=== PATIENT | male | born 1955 ===

== ENCOUNTER 2019-02-02 00:50 | Emergency (ER) | payer OTHER ==
[~2019-02-02] VITALS: Ht 167.6 cm; Wt 77.1 kg
[~2019-02-02 00:50] MED LIST: ASPI81CH PO; EZET10 PO; INVOKANA300 MG PO; METF500C PO; METO50 PO; Prilosec Otc20 MG PO; Prinivil10 MG PO; ROSU10TA PO
[2019-02-02 01:30] LABS: BASOPHILS ABSOLUTE AUTO 0.04 K/mm3 (0.00-0.23); BASOPHILS PERCENT AUTO 1 % (0-2); EOSINOPHILS ABSOLUTE AUTO 0.15 K/mm3 (0.00-0.68); EOSINOPHILS PERCENT AUTO 3 % (0-6); Hematocrit 44.9 % (37.0-53.0); Hemoglobin 15.2 g/dL (13.5-17.5); IMMATURE GRAN ABSOLUTE AUTO 0.02 K/mm3 (0.00-0.10); IMMATURE GRAN PERCENT AUTO 0 % (0-1); LYMPHOCYTES ABSOLUTE AUTO 2.58 K/mm3 (0.84-5.20); LYMPHOCYTES PERCENT AUTO 43 % (21-46); MONOCYTES ABSOLUTE AUTO 0.64 K/mm3 (0.16-1.47); MONOCYTES PERCENT AUTO 11 % (4-13); Mean Corpuscular HGB Conc 33.9 g/dL (31.5-36.5); Mean Corpuscular Volume 98 fL (80-100); Mean Platelet Volume 9.2 fL (9.1-12.4); NEUTROPHILS ABSOLUTE AUTO 2.52 K/mm3 (1.96-9.15); NEUTROPHILS PERCENT AUTO 42 % (41-73); Platelet Count 194 K/mm3 (150-400); RDW Coefficient Variation 12.1 % (11.7-14.2); RDW Standard Deviation 43.6 fL (35.1-46.3); White Blood Cell Count 5.95 K/mm3 (4.00-11.30)
[2019-02-02 01:44] LABS: Alanine Aminotransfer (ALT/SGP 52 U/L (12-78); Albumin, Blood 3.8 g/dL (3.4-5.0); Albumin/Globulin Ratio 1.1 (0.8-1.8); Alk Phos 65 U/L (50-136); Anion Gap 15 mmol/L (6-16); Aspartate Aminotrans (AST/SGOT 36 U/L (12-37); Bilirubin, Total 0.3 mg/dL (0.1-1.0); Blood Urea Nitrogen 16 mg/dL (8-24); Bun/Creatinine Ratio 19.6 (12.0-20.0); CO2, Blood 19 mmol/L (21-32); Calcium, Blood 9.2 mg/dL (8.5-10.1); Chloride, Blood 105 mmol/L (98-108); Creatinine, Blood 0.82 mg/dL (0.60-1.20); Globulin, Blood 3.4 g/dL (2.2-4.0); Glomerular Filtration Rate >60 (60-); Glucose, Blood 155 mg/dL (70-99); Potassium, Blood 4.3 mmol/L (3.5-5.5); Sodium, Blood 139 mmol/L (136-145); Total Protein, Blood 7.2 g/dL (6.4-8.2); Troponin I <0.015 ng/mL (0.000-0.040)
== END 2019-02-02 05:06 | disposition home or self-care (01) ==
LOC: ER 00:50
PROVIDERS: Emergency Medicine
DX: R07.89 Other chest pain (principal); Z87.891 Personal history of nicotine dependence; Z79.899 Other long term (current) drug therapy; Z79.82 Long term (current) use of aspirin; Z79.84 Long term (current) use of oral hypoglycemic drugs
CPT/HCPCS: 36415; 71046; 80053; 83690; 84484; 85025; 93005; 93010; 99285-25

== ENCOUNTER 2019-10-02 09:45 | Inpatient (IN) | payer OTHER ==
[~2019-10-02] VITALS: Ht 167.6 cm; Wt 73.3 kg
[~2019-10-02 09:45] MED LIST changes: -ASPI81CH PO; -EZET10 PO; +JARDIANCE25 MG PO; -METF500C PO; -METO50 PO; -Prilosec Otc20 MG PO; -Prinivil10 MG PO; -ROSU10TA PO; +XARELTO15 MG PO
[2019-10-02 10:41] LABS: BASOPHILS ABSOLUTE AUTO 0.08 K/mm3 (0.00-0.23); BASOPHILS PERCENT AUTO 1 % (0-2); EOSINOPHILS ABSOLUTE AUTO 0.02 K/mm3 (0.00-0.68); EOSINOPHILS PERCENT AUTO 0 % (0-6); Hematocrit 54.8 % (37.0-53.0); Hemoglobin 17.1 g/dL (13.5-17.5); IMMATURE GRAN ABSOLUTE AUTO 0.07 K/mm3 (0.00-0.10); IMMATURE GRAN PERCENT AUTO 1 % (0-1); LYMPHOCYTES ABSOLUTE AUTO 2.06 K/mm3 (0.84-5.20); LYMPHOCYTES PERCENT AUTO 18 % (21-46); MONOCYTES ABSOLUTE AUTO 0.84 K/mm3 (0.16-1.47); MONOCYTES PERCENT AUTO 7 % (4-13); Mean Corpuscular HGB 32.4 pg (26.0-34.0); Mean Corpuscular HGB Conc 31.2 g/dL (31.5-36.5); Mean Corpuscular Volume 104 fL (80-100); Mean Platelet Volume 9.3 fL (9.1-12.4); NEUTROPHILS ABSOLUTE AUTO 8.62 K/mm3 (1.96-9.15); NEUTROPHILS PERCENT AUTO 74 % (41-73); Platelet Count 221 K/mm3 (150-400); RDW Coefficient Variation 11.5 % (11.7-14.2); RDW Standard Deviation 44.5 fL (35.1-46.3); Red Blood Cell Count 5.28 M/mm3 (4.30-5.90); White Blood Cell Count 11.69 K/mm3 (4.00-11.30)
[2019-10-02 11:00] LABS: Alanine Aminotransfer (ALT/SGP 140 U/L (12-78); Albumin, Blood 4.5 g/dL (3.4-5.0); Albumin/Globulin Ratio 1.1 (0.8-1.8); Alk Phos 96 U/L (50-136); Anion Gap 24 mmol/L (6-16); Aspartate Aminotrans (AST/SGOT 130 U/L (12-37); Bilirubin, Total 0.7 mg/dL (0.1-1.0); Blood Urea Nitrogen 17 mg/dL (8-24); CO2, Blood 10 mmol/L (21-32); Calcium, Blood 9.1 mg/dL (8.5-10.1); Chloride, Blood 100 mmol/L (98-108); Globulin, Blood 4.2 g/dL (2.2-4.0); Glomerular Filtration Rate >60 (60-); Glucose, Blood 247 mg/dL (70-99); Potassium, Blood 5.2 mmol/L (3.5-5.5); Sodium, Blood 134 mmol/L (136-145); Total Protein, Blood 8.7 g/dL (6.4-8.2); Troponin I <0.015 ng/mL (0.000-0.040)
[2019-10-02 13:22] LABS: Ethanol (Alcohol), Blood, Med <3 mg/dL; Salicylate 3.5 mg/dL (2.8-20.0)
[2019-10-02 13:29] LABS: Acetaminophen, Random <2.0 ug/mL (10.0-30.0)
[2019-10-02 13:39] LABS: PCO2 Arterial 13 mmHg (35-45); PO2 Arterial 136 mmHg (80-100)
[2019-10-02 14:14] LABS: U Amphetamine Screen Not Detected; U Barbituate Screen Not Detected; U Benzodiazapine Screen Not Detected; U Buprenorphine Screen Not Detected; U Cannabinoids Screen Not Detected; U Cocaine Screen Not Detected; U Methadone Screen Not Detected; U Methamphetamine Screen Not Detected; U Opiates Screen Not Detected; U Oxycodone Screen Not Detected; U Phencyclidine Screen Not Detected; U Propoxyphene Screen Not Detected
[2019-10-02] MEDS ORDERED: Aspir 8181 MG PO (15:07)
[2019-10-02] MEDS ORDERED: EZET10 PO (15:08)
[2019-10-02] MEDS ORDERED: METF500C PO (15:08)
[2019-10-02] MEDS ORDERED: Prinivil10 MG PO (15:08)
[2019-10-02] MEDS ORDERED: METO50 PO (15:09)
[2019-10-02] MEDS ORDERED: ROSU10TA PO (15:09)
[2019-10-02] MEDS ORDERED: Prilosec Otc20 MG PO (15:09)
[2019-10-02] MEDS ORDERED: JARDIANCE25 MG PO (15:10)
[2019-10-02] MEDS ORDERED: SITA100T2 PO (15:10)
[2019-10-02 17:00] LABS: Source, Urine Clean Catch
[2019-10-02 17:15] LABS: Appearance, Urine Clear (Clear); Bilirubin, Urine Neg (Neg); Blood, Urine 1+ (Neg); Color, Urine Yellow (P-Yellow); Glucose Qualitative, Urine 4+ (Neg); Ketones, Urine 4+ (Neg); Leukocyte Esterase, Urine Neg (Neg); Nitrite, Urine Neg (Neg); Protein, Urine 3+ (Neg); Specific Gravity, Urine 1.025 (1.003-1.022); Urobilinogen, Urine NORM (Normal)
[2019-10-02 17:19] LABS: Anion Gap 20 mmol/L (6-16); Blood Urea Nitrogen 15 mg/dL (8-24); Bun/Creatinine Ratio 21.5 (12.0-20.0); CO2, Blood 9 mmol/L (21-32); Calcium, Blood 7.5 mg/dL (8.5-10.1); Chloride, Blood 109 mmol/L (98-108); Glomerular Filtration Rate >60 (60-); Glucose, Blood 154 mg/dL (70-99); Potassium, Blood 5.7 mmol/L (3.5-5.5); Sodium, Blood 138 mmol/L (136-145)
[2019-10-02 17:29] LABS: PO2 Arterial 118 mmHg (80-100)
[2019-10-02 17:30] LABS: PCO2 Arterial 12.3 mmHg (35-45)
[2019-10-02 17:33] LABS: Bacteria Few /hpf; Red Blood Cells, Urine 0-2 /hpf (0-2); Squamous Epithelial Cells Rare /hpf (Few); White Blood Cells, Urine 0-2 /hpf (0-5)
--- NOTE | 2019-10-02 17:55 | NUR ---
echocardiogram completed in the ED
--- NOTE | 2019-10-02 18:51 | NUR ---
ARRIVAL TO ICU PT ARRIVES TO ICU AT 1800 FROM ED. INSULIN GTT INFUSING AT 0.5 UNITS/HR WITH D5 1/2 NS AT 150 ML/HR. BLOOD SUGAR AT 150. PT A/O X 3, CALM AND COOPERATIVE. DENIES SOB AT THIS TIME. NSR, HR 100-110. BP WNL. SPO2 98% ON RA. LUNG SOUNDS CLEAR. MD MOSQUEDA BEDSIDE FOR EVAL AT THIS TIME. WILL GIVE BEDSIDE, HANDOFF REPORT TO SAYRA RN.
[2019-10-02 19:49] LABS: International Normalized Ratio 1.07; Prothrombin Time Results 11.4 Sec (9.7-11.5)
[2019-10-02 20:02] LABS: Anion Gap 21 mmol/L (6-16); Blood Urea Nitrogen 14 mg/dL (8-24); Bun/Creatinine Ratio 20.1 (12.0-20.0); CO2, Blood 8 mmol/L (21-32); Calcium, Blood 7.6 mg/dL (8.5-10.1); Chloride, Blood 110 mmol/L (98-108); Glomerular Filtration Rate >60 (60-); Glucose, Blood 142 mg/dL (70-99); Potassium, Blood 4.7 mmol/L (3.5-5.5); Sodium, Blood 139 mmol/L (136-145)
[2019-10-02 20:25] LABS: Adenovirus Not Detected (NOT DETECT); Bordetella pertussis Not Detected (NOT DETECT); Chlamydophila pneumoniae Not Detected (NOT DETECT); Coronavirus 229E Not Detected (NOT DETECT); Coronavirus HKU1 Not Detected (NOT DETECT); Coronavirus NL63 Not Detected (NOT DETECT); Coronavirus OC43 Not Detected (NOT DETECT); Human Metapneumovirus Not Detected (NOT DETECT); Human Rhinovirus/Enterovirus Not Detected (NOT DETECT); Influenza A/2009-H1 Not Detected (NOT DETECT); Influenza A/H1 Not Detected (NOT DETECT); Influenza A/H3 Not Detected (NOT DETECT); Influenza B Not Detected (NOT DETECT); Mycoplasma pneumoniae Not Detected (NOT DETECT); Parainfluenza Virus 1 Not Detected (NOT DETECT); Parainfluenza Virus 2 Not Detected (NOT DETECT); Parainfluenza Virus 3 Not Detected (NOT DETECT); Parainfluenza Virus 4 Not Detected (NOT DETECT); Respiratory Syncytial Virus Not Detected (NOT DETECT)
[2019-10-02 23:36] LABS: Anion Gap 20 mmol/L (6-16); Blood Urea Nitrogen 13 mg/dL (8-24); Bun/Creatinine Ratio 20.6 (12.0-20.0); CO2, Blood 8 mmol/L (21-32); Calcium, Blood 7.7 mg/dL (8.5-10.1); Chloride, Blood 112 mmol/L (98-108); Creatinine, Blood 0.63 mg/dL (0.60-1.20); Glomerular Filtration Rate >60 (60-); Glucose, Blood 179 mg/dL (70-99); Potassium, Blood 4.2 mmol/L (3.5-5.5); Sodium, Blood 140 mmol/L (136-145)
[2019-10-03 04:01] LABS: BASOPHILS ABSOLUTE AUTO 0.02 K/mm3 (0.00-0.23); BASOPHILS PERCENT AUTO 0 % (0-2); EOSINOPHILS ABSOLUTE AUTO 0.02 K/mm3 (0.00-0.68); EOSINOPHILS PERCENT AUTO 0 % (0-6); Hematocrit 44.7 % (37.0-53.0); Hemoglobin 14.7 g/dL (13.5-17.5); IMMATURE GRAN ABSOLUTE AUTO 0.02 K/mm3 (0.00-0.10); IMMATURE GRAN PERCENT AUTO 0 % (0-1); LYMPHOCYTES ABSOLUTE AUTO 1.06 K/mm3 (0.84-5.20); LYMPHOCYTES PERCENT AUTO 11 % (21-46); MONOCYTES ABSOLUTE AUTO 1.02 K/mm3 (0.16-1.47); MONOCYTES PERCENT AUTO 11 % (4-13); Mean Corpuscular HGB 33.1 pg (26.0-34.0); Mean Corpuscular HGB Conc 32.9 g/dL (31.5-36.5); Mean Platelet Volume 9.6 fL (9.1-12.4); NEUTROPHILS ABSOLUTE AUTO 7.21 K/mm3 (1.96-9.15); NEUTROPHILS PERCENT AUTO 77 % (41-73); Platelet Count 166 K/mm3 (150-400); RDW Coefficient Variation 11.8 % (11.7-14.2); RDW Standard Deviation 44.2 fL (35.1-46.3); Red Blood Cell Count 4.44 M/mm3 (4.30-5.90); White Blood Cell Count 9.35 K/mm3 (4.00-11.30)
[2019-10-03 04:06] LABS: Mean Corpuscular Volume 101 fL (80-100)
[2019-10-03 04:34] LABS: Very Low Density Lipoprot Chol 39 mg/dL (6-32)
[2019-10-03 04:36] LABS: Alanine Aminotransfer (ALT/SGP 98 U/L (12-78); Albumin, Blood 3.4 g/dL (3.4-5.0); Alk Phos 72 U/L (50-136); Anion Gap 17 mmol/L (6-16); Aspartate Aminotrans (AST/SGOT 76 U/L (12-37); Bilirubin, Total 0.7 mg/dL (0.1-1.0); Blood Urea Nitrogen 12 mg/dL (8-24); CHOL/HDL RATIO 2.5; CO2, Blood 10 mmol/L (21-32); Calcium, Blood 7.8 mg/dL (8.5-10.1); Chloride, Blood 111 mmol/L (98-108); Cholesterol 80 mg/dL (50-200); Creatinine, Blood 0.63 mg/dL (0.60-1.20); Glomerular Filtration Rate >60 (60-); Glucose, Blood 166 mg/dL (70-99); HDL Cholesterol 32 mg/dL (>39); LDL/HDL RATIO 0.3; Low Density Lipoprotein Chol 9 mg/dL (0-110); Sodium, Blood 138 mmol/L (136-145); Triglycerides 197 mg/dL (30-160); Troponin I 0.201 ng/mL (0.000-0.040)
[2019-10-03 04:40] LABS: Globulin, Blood 3.3 g/dL (2.2-4.0); Total Protein, Blood 6.7 g/dL (6.4-8.2)
--- NOTE | 2019-10-03 05:48 | NUR ---
ASSUMED CARE AT 1900. BEDSIDE REPORT DONE, PT PARTICIPATING. NO FAMILY AT BEDSIDE. ITRACE PERFORMED. HEPARIN GTT STARTED. PT'S RIGHT AC USED, FREQUENT ALARMS. PT REFUSED A NEW IV, AGREED TO ARMBOARD. PT HAD EPISODE OF EMESIS, NO FURTHER NAUSEA. HOWEVER, PT THEN C/O ABDOMINAL CRAMPING, BUT FELL ASLEEP AFTER TYLENOL GIVEN. PT HAS SLEPT MOST OF EVENING, IN BETWEEN HOURLY GLUCOSE CHECKS. PT HAD NO C/O CHEST PAIN ALL EVENING.
--- NOTE | 2019-10-03 07:18 | NUR ---
ASSUMED CARE: PT RESTING IN BED. HEPARIN GTT RUNNING PER ORDERS, CONFIRMED WITH ALEXANDER KWAN. INSULIN GTT AT 2.5 UNITS/HR AT THIS TIME. DR TORRES CAME TO BEDSIDE TO SEE PT. INSTRUCTS NPO FOR PROCEDURE. NPO SIGN OUTSIDE OF DOOR. DENIES NEEDS OR CONCERNS AT THIS TIME.
--- NOTE | 2019-10-03 08:27 | NUR ---
CLINICAL COORDINATOR FIXED PT'S IVS AND SUGGESTED NEW IV SITES. PT STATES HE WAS A HARD STICK AND REQUESTED TO HAVE IVS LEFT ALONE. DISCUSSED WITH PARTY SUPPLY SPECIALIST THAT PT MAY BENEFIT FROM POWER GLIDE. OVERLAY OPERATOR STUDENTS AT BEDSIDE AT THIS TIME.
--- NOTE | 2019-10-03 09:06 | NUR ---
[facility] STAFF HERE TO COLLECT PT FOR PROCEDURE. NURSE AWARE THAT IVS ARE FUNCTIONING BUT TEMPERMENTAL
--- NOTE | 2019-10-03 09:33 | NUR ---
HOUSECALLS NURSE RN NOTICED THAT RIGHT ARM WAS SWOLLEN WITH REDNESS AT INSERTION SITE. ARM MORE TIGHT AND SWOLLEN THAN IT HAD BEEN. IV DC'D. LEFT AC LEAKING, NEW DRESSING PLACED. HOUSECALLS NURSE RN PULLED BACK AND FOUND COULD STILL DRAW BLOOD. ALL FLUIDS DISCONNECTED AT THIS TIME BECAUSE HOUSECALLS NURSE WAS CONCERNED ABOUT CBG DROPPING TOO MUCH DURING PROCEDURE.
[2019-10-03 09:49] LABS: Anion Gap 15 mmol/L (6-16); Blood Urea Nitrogen 12 mg/dL (8-24); Bun/Creatinine Ratio 21.5 (12.0-20.0); CO2, Blood 13 mmol/L (21-32); Calcium, Blood 8.1 mg/dL (8.5-10.1); Chloride, Blood 95 mmol/L (98-108); Creatinine, Blood 0.56 mg/dL (0.60-1.20); Glomerular Filtration Rate >60 (60-); Glucose, Blood 127 mg/dL (70-99); Potassium, Blood 3.2 mmol/L (3.5-5.5)
[2019-10-03 09:50] LABS: Sodium, Blood 123 mmol/L (136-145)
--- NOTE | 2019-10-03 10:37 | NUR ---
CALL TO DR NASH ABOUT PT'S LAB RESULTS. AWARE THAT PT IS OFF IVF AND INSULIN AT THIS TIME DUE TO PROCEDURE. ORDERS TO START NEW IVF AND RESTART INSULIN WHEN PT RETURNS. CHECKED WITH PHARMACY IF FLUIDS CAN BE GIVEN THROUGH PERIPHERAL AND CHACHA, PHARMACIST STATES YES LONG IV IS IN LARGER VEIN.
--- NOTE | 2019-10-03 10:50 | NUR ---
PT RETURNED FROM CAR [facility]ASER. LEFT WRIST WITH TR BAND IN PLACE. NO SIGNS OF SWELLING OR HEMATOMA AT THIS TIME. NEW IV TO RIGHT FORE ARM WITH D5 NS WITH KCL AND INSULIN RUNNING WELL NS PER DR TOVAR. COBRA TRANSFER BEING WORKED ON. CALL TO DR FOLEY TO DETERMINE DIET AND HEPARIN ORDERS. AWAITING CALL BACK. DISCUSSED NEED FOR SECOND IV WITH EDITOR
--- NOTE | 2019-10-03 13:15 | NUR ---
DR POPE ORDERED FOR COBRA TRANSFER. TR BAND DEFLATED 2CC WITH NO ISSUE. NO SIGNS OF BLEEDING OR HEMATOMA. INSTRUCTED BY DR POPE TO START HEPARIN 6 HOURS AFTER BAND DEFLATED. PASSED THIS ALONG TO ALEXANDER MONSIVAIS AT [facility] THAT REPORT WAS GIVEN TO. PT'S WAS CALLED AND LEFT MESSAGE FOR UPDATE. [facility] CAME TO TAKE PT TO [facility].
[2019-10-03 13:20] LABS: Anion Gap 13 mmol/L (6-16); Blood Urea Nitrogen 11 mg/dL (8-24); Bun/Creatinine Ratio 18.6 (12.0-20.0); CO2, Blood 13 mmol/L (21-32); Chloride, Blood 113 mmol/L (98-108); Creatinine, Blood 0.59 mg/dL (0.60-1.20); Glomerular Filtration Rate >60 (60-); Glucose, Blood 130 mg/dL (70-99); Potassium, Blood 3.9 mmol/L (3.5-5.5)
[2019-10-03 13:21] LABS: Sodium, Blood 139 mmol/L (136-145)
--- NOTE | 2019-10-03 15:08 | NUR ---
PT'S CALLED AND WAS GIVEN UPDATE.
== END 2019-10-03 13:21 | disposition short-term general hospital (02) | DRG 280 ==
LOC: ER 09:45 → ICUW 17:23 → ICUE 17:23
PROVIDERS: Emergency Medicine; Internal Medicine; Nurse Practitioner Acute Care; Physician Assistant; ADMIT Hospitalist
PROC: B211YZZ Fluoroscopy of Multiple Coronary Arteries using Other Contrast (ICD-10-PCS; principal; 2019-10-03)
DX: I21.4 Non-ST elevation (NSTEMI) myocardial infarction (principal); E11.10 Type 2 diabetes mellitus with ketoacidosis without coma; R65.10 Systemic inflammatory response syndrome (SIRS) of non-infectious origin without acute organ dysfunction; K21.9 Gastro-esophageal reflux disease without esophagitis; R74.0 Nonspecific elevation of levels of transaminase and lactic acid dehydrogenase [LDH]; I10 Essential (primary) hypertension; E78.5 Hyperlipidemia, unspecified; E11.51 Type 2 diabetes mellitus with diabetic peripheral angiopathy without gangrene; I25.10 Atherosclerotic heart disease of native coronary artery without angina pectoris; Z95.5 Presence of coronary angioplasty implant and graft; I25.2 Old myocardial infarction; Z87.891 Personal history of nicotine dependence; Z79.82 Long term (current) use of aspirin; Z79.84 Long term (current) use of oral hypoglycemic drugs
CPT/HCPCS: 0099U; 36415; 36600; 71046; 76937; 80048; 80053; 80061; 81001; 82010; 82803; 82947; 83036; 83605; 83690; 83735; 83880; 83930; 84100; 84484; 85025; 85610; 85730; 93005; 93010; 93306; 93454; 96361; 96365; 96375; 96376; 99152; 99153; 99285-25; A9270; A9270-GY; C1769; C1894; G0480; J1644; J1815; J2250; J2405; J3010; J3475; J3480; J7030; J7040; J7042; J7070; Q9967

== ENCOUNTER 2020-04-04 00:14 | Observation (INO) | payer OTHER ==
[~2020-04-04] VITALS: Ht 167.6 cm; Wt 72.4 kg
[~2020-04-04 00:14] MED LIST changes: +Aspir 8181 MG PO; +EZET10 PO; +METF500C PO; +METO50 PO; +Prilosec Otc20 MG PO; +Prinivil10 MG PO; +ROSU10TA PO; +SITA100T2 PO
[2020-04-04] MEDS ORDERED: BASAGLAR K100 UNIT/1 (00:46)
[2020-04-04] MEDS ORDERED: HUMALOG100 UNIT/1 (00:46)
[2020-04-04] MEDS ORDERED: LANTUS SOL100 UNIT/1 (00:46)
[2020-04-04] MEDS ORDERED: Plavix75 MG PO (00:47)
[2020-04-04] MEDS ORDERED: B-COMPLEX WITH1 EAC3 PO (00:47)
[2020-04-04 00:48] LABS: BASOPHILS ABSOLUTE AUTO 0.03 K/mm3 (0.00-0.23); BASOPHILS PERCENT AUTO 0 % (0-2); EOSINOPHILS ABSOLUTE AUTO 0.09 K/mm3 (0.00-0.68); EOSINOPHILS PERCENT AUTO 1 % (0-6); Hematocrit 44.4 % (37.0-53.0); Hemoglobin 14.5 g/dL (13.5-17.5); IMMATURE GRAN ABSOLUTE AUTO 0.04 K/mm3 (0.00-0.10); IMMATURE GRAN PERCENT AUTO 0 % (0-1); LYMPHOCYTES ABSOLUTE AUTO 1.64 K/mm3 (0.84-5.20); LYMPHOCYTES PERCENT AUTO 13 % (21-46); MONOCYTES ABSOLUTE AUTO 1.28 K/mm3 (0.16-1.47); MONOCYTES PERCENT AUTO 10 % (4-13); Mean Corpuscular HGB 31.7 pg (26.0-34.0); Mean Corpuscular HGB Conc 32.7 g/dL (31.5-36.5); Mean Corpuscular Volume 97 fL (80-100); Mean Platelet Volume 9.1 fL (9.1-12.4); NEUTROPHILS ABSOLUTE AUTO 9.35 K/mm3 (1.96-9.15); NEUTROPHILS PERCENT AUTO 75 % (41-73); Platelet Count 228 K/mm3 (150-400); RDW Coefficient Variation 13.2 % (11.7-14.2); RDW Standard Deviation 47.4 fL (35.1-46.3); Red Blood Cell Count 4.57 M/mm3 (4.30-5.90); White Blood Cell Count 12.43 K/mm3 (4.00-11.30)
[2020-04-04] MEDS ORDERED: GLYXAMBI 25 MG1 EACH PO (00:48)
[2020-04-04 01:07] LABS: Alanine Aminotransfer (ALT/SGP 11 U/L (12-78); Albumin, Blood 3.4 g/dL (3.4-5.0); Albumin/Globulin Ratio 0.8 (0.8-1.8); Alk Phos 67 U/L (50-136); Anion Gap 8 mmol/L (6-16); Aspartate Aminotrans (AST/SGOT 12 U/L (12-37); Bilirubin, Total 0.7 mg/dL (0.1-1.0); Blood Urea Nitrogen 17 mg/dL (8-24); Bun/Creatinine Ratio 26.1 (12.0-20.0); CO2, Blood 25 mmol/L (21-32); Chloride, Blood 105 mmol/L (98-108); Creatinine, Blood 0.65 mg/dL (0.60-1.20); Glomerular Filtration Rate >60 (60-); Glucose, Blood 127 mg/dL (70-99); Sodium, Blood 138 mmol/L (136-145); Total Protein, Blood 7.4 g/dL (6.4-8.2); Troponin I <0.015 ng/mL (0.000-0.040)
[2020-04-04 05:10] LABS: BASOPHILS ABSOLUTE AUTO 0.03 K/mm3 (0.00-0.23); BASOPHILS PERCENT AUTO 0 % (0-2); EOSINOPHILS ABSOLUTE AUTO 0.04 K/mm3 (0.00-0.68); EOSINOPHILS PERCENT AUTO 0 % (0-6); Hematocrit 42.1 % (37.0-53.0); Hemoglobin 13.7 g/dL (13.5-17.5); IMMATURE GRAN ABSOLUTE AUTO 0.03 K/mm3 (0.00-0.10); IMMATURE GRAN PERCENT AUTO 0 % (0-1); LYMPHOCYTES ABSOLUTE AUTO 1.76 K/mm3 (0.84-5.20); LYMPHOCYTES PERCENT AUTO 15 % (21-46); MONOCYTES ABSOLUTE AUTO 1.51 K/mm3 (0.16-1.47); MONOCYTES PERCENT AUTO 13 % (4-13); Mean Corpuscular HGB 31.4 pg (26.0-34.0); Mean Corpuscular HGB Conc 32.5 g/dL (31.5-36.5); Mean Corpuscular Volume 97 fL (80-100); NEUTROPHILS ABSOLUTE AUTO 8.55 K/mm3 (1.96-9.15); NEUTROPHILS PERCENT AUTO 72 % (41-73); Platelet Count 220 K/mm3 (150-400); RDW Coefficient Variation 13.1 % (11.7-14.2); RDW Standard Deviation 46.8 fL (35.1-46.3); Red Blood Cell Count 4.36 M/mm3 (4.30-5.90); White Blood Cell Count 11.92 K/mm3 (4.00-11.30)
[2020-04-04 05:32] LABS: Alanine Aminotransfer (ALT/SGP 14 U/L (12-78); Albumin, Blood 3.2 g/dL (3.4-5.0); Albumin/Globulin Ratio 0.9 (0.8-1.8); Alk Phos 59 U/L (50-136); Anion Gap 5 mmol/L (6-16); Aspartate Aminotrans (AST/SGOT 9 U/L (12-37); Bilirubin, Total 0.8 mg/dL (0.1-1.0); Blood Urea Nitrogen 18 mg/dL (8-24); Bun/Creatinine Ratio 25.1 (12.0-20.0); CO2, Blood 27 mmol/L (21-32); Chloride, Blood 106 mmol/L (98-108); Creatinine, Blood 0.72 mg/dL (0.60-1.20); Globulin, Blood 3.6 g/dL (2.2-4.0); Glomerular Filtration Rate >60 (60-); Glucose, Blood 83 mg/dL (70-99); Potassium, Blood 4.1 mmol/L (3.5-5.5); Sodium, Blood 138 mmol/L (136-145); Total Protein, Blood 6.8 g/dL (6.4-8.2)
--- NOTE | 2020-04-04 07:33 | NUR ---
SHIFT SUMMARY PATIENT ALERT AND ORIENTED. ABLE TO BE SAFE INDEPENDENTLY AMBULATING AROUND HIS ROOM. IV INFUSING WITH NORMAL SALINE AT 75 ML/HR. BED IN LOWEST POSITION WITH WHEELS LOCKED. CALL LIGHT WITHIN REACH. REPPORT GIVEN TO ONCOMING RN.
[2020-04-04 09:06] LABS: CPK Creatine Kinase 29 U/L (39-308)
[2020-04-04] MEDS ORDERED: ACET325 PO (10:13)
[2020-04-04] MEDS ORDERED: PANT40 PO (10:13)
--- NOTE | 2020-04-04 11:07 | NUR ---
DISCHARGE NOTE- PT DISCHARGED HOME TODAY. IV AND TELE DC'D PRIOR TO DISCHARGE. PT HAS HAD NO C/O CP T/O THE SHIFT, ALL TROPONINS NEGATIVE. PT REFUSED THE WC AND WALKED OUT ESCORTED BY RN. NO SIGN OF WEAKNESS OR ACTIVITY INTOLLERANCE ON THE WALK TO THE FRONT DOOR.
== END 2020-04-04 10:41 | disposition home or self-care (01) ==
LOC: ER 00:14 → MEDS 00:15 → ENPENDDIS 09:40 → MEDS 10:41
PROVIDERS: Emergency Medicine; ADMIT Internal Medicine
DX: R07.89 Other chest pain (principal); I25.10 Atherosclerotic heart disease of native coronary artery without angina pectoris; I10 Essential (primary) hypertension; K21.9 Gastro-esophageal reflux disease without esophagitis; E11.51 Type 2 diabetes mellitus with diabetic peripheral angiopathy without gangrene; J44.9 Chronic obstructive pulmonary disease, unspecified; Z95.1 Presence of aortocoronary bypass graft; Z79.4 Long term (current) use of insulin; Z79.82 Long term (current) use of aspirin; Z79.02 Long term (current) use of antithrombotics/antiplatelets; Z79.899 Other long term (current) drug therapy; Z87.891 Personal history of nicotine dependence
CPT/HCPCS: 36415; 71046; 80053; 82550; 82947; 83880; 84484; 85025; 85379; 93005; 93010; 96374; 96375; 99285-25; A9270; A9270-GY; G0378; J2405; J3010; J7030

== ENCOUNTER 2020-08-04 10:24 | Day surgery (SDC) | payer OTHER ==
[~2020-08-04] VITALS: Ht 172.7 cm; Wt 75.5 kg
[~2020-08-04 10:24] MED LIST changes: +ACET325 PO; +B-COMPLEX WITH1 EAC3 PO; +BASAGLAR K100 UNIT/1; +GLYXAMBI 25 MG1 EACH PO; +HUMALOG100 UNIT/1; +LANTUS SOL100 UNIT/1; +METF500 PO; +PANT40 PO; +Plavix75 MG PO
[2020-08-04] MEDS ORDERED: CALCIUM 1,0001 EACH PO (11:09)
[2020-08-04] MEDS ORDERED: POTASSIUM GLUC500 M1 PO (11:10)
--- NOTE | 2020-08-04 16:00 | NUR ---
BROUGHT BACK TO RECOVERY ROOM PREVIOUSLY ON [facility], PROVIDED WITH MEAL TRAY, HOB AT 90 DEGREES, TOLERATES PO FOOD/FLUIDS WITH NO DIFFICULTIES. LEFT PEDAL ARTERIAL ACCESS SITE APPEARS SOFT NON TENDER WITH NO ACTIVE BLEEDING, OOZING, OR PAIN. PT AOX4. UPDATED. CALL LIGHT IN REACH.
--- NOTE | 2020-08-04 17:21 | NUR ---
PT VERBALIZED UNDERSTANDING OF D/C INSTRUCTIONS. PROVIDED WITH PAPERWORK IN FOLDER. LEFT PEDAL ARTERIAL ACCESS SITE WITH CLEAR TEGADERM INTACT. AFTER AMBULATING TO RESTROOM WITH STEADY GAIT, THERE WERE NO SIGNS OF BLEEDING OR OOZING NOTED. PT DENIES PAIN. ARRIVES TO DRIVE PT HOME, TAKEN OUT TO PRIVATE VEHICLE VIA W/C. NADN. VSS. ENCOURAGED TO FOLLOW UP SCHEDULED WITH PROVIDER. IV REMOVED FROM RFA WITH CATH INTACT. PRESSURE DRESSING APPLIED.
== END 2020-08-04 16:55 | disposition home or self-care (01) ==
LOC: MHTC 10:24
DX: E11.51 Type 2 diabetes mellitus with diabetic peripheral angiopathy without gangrene (principal); I70.213 Atherosclerosis of native arteries of extremities with intermittent claudication, bilateral legs; I25.10 Atherosclerotic heart disease of native coronary artery without angina pectoris; I10 Essential (primary) hypertension; Z79.82 Long term (current) use of aspirin; Z79.02 Long term (current) use of antithrombotics/antiplatelets
CPT/HCPCS: 75716; 76937; 85347; 99152; 99153; C1725; C1757; C1769; C1887; C1894; C2623; C9764; J1644; J2250; J3010; J7030; J7050; Q9967

== ENCOUNTER 2020-09-17 10:32 | Emergency (ER) | payer OTHER ==
[~2020-09-17] VITALS: Ht 167.6 cm; Wt 74.8 kg
[~2020-09-17 10:32] MED LIST changes: +CALCIUM 1,0001 EACH PO; +POTASSIUM GLUC500 M1 PO
[2020-09-17 12:31] LABS: BASOPHILS ABSOLUTE AUTO 0.03 K/mm3 (0.00-0.23); BASOPHILS PERCENT AUTO 1 % (0-2); EOSINOPHILS ABSOLUTE AUTO 0.08 K/mm3 (0.00-0.68); EOSINOPHILS PERCENT AUTO 1 % (0-6); Hematocrit 46.2 % (37.0-53.0); Hemoglobin 15.7 g/dL (13.5-17.5); IMMATURE GRAN ABSOLUTE AUTO 0.02 K/mm3 (0.00-0.10); IMMATURE GRAN PERCENT AUTO 0 % (0-1); LYMPHOCYTES PERCENT AUTO 27 % (21-46); MONOCYTES ABSOLUTE AUTO 0.66 K/mm3 (0.16-1.47); MONOCYTES PERCENT AUTO 10 % (4-13); Mean Corpuscular HGB 32.5 pg (26.0-34.0); Mean Corpuscular Volume 96 fL (80-100); Mean Platelet Volume 9.3 fL (9.1-12.4); NEUTROPHILS ABSOLUTE AUTO 3.92 K/mm3 (1.96-9.15); NEUTROPHILS PERCENT AUTO 61 % (41-73); Platelet Count 230 K/mm3 (150-400); RDW Coefficient Variation 12.6 % (11.7-14.2); RDW Standard Deviation 44.8 fL (35.1-46.3); Red Blood Cell Count 4.83 M/mm3 (4.30-5.90); White Blood Cell Count 6.41 K/mm3 (4.00-11.30)
[2020-09-17 12:49] LABS: Alanine Aminotransfer (ALT/SGP 30 U/L (12-78); Albumin, Blood 3.7 g/dL (3.4-5.0); Albumin/Globulin Ratio 0.9 (0.8-1.8); Alk Phos 73 U/L (50-136); Anion Gap 10 mmol/L (6-16); Aspartate Aminotrans (AST/SGOT 18 U/L (12-37); Bilirubin, Total 0.6 mg/dL (0.1-1.0); Blood Urea Nitrogen 14 mg/dL (8-24); Bun/Creatinine Ratio 22.7 (12.0-20.0); CO2, Blood 23 mmol/L (21-32); Calcium, Blood 9.5 mg/dL (8.5-10.1); Chloride, Blood 105 mmol/L (98-108); Creatinine, Blood 0.62 mg/dL (0.60-1.20); Globulin, Blood 3.9 g/dL (2.2-4.0); Glomerular Filtration Rate >60 (60-); Glucose, Blood 284 mg/dL (70-99); Potassium, Blood 4.3 mmol/L (3.5-5.5); Sodium, Blood 138 mmol/L (136-145); Total Protein, Blood 7.6 g/dL (6.4-8.2); Troponin I <0.015 ng/mL (0.000-0.040)
== END 2020-09-17 14:42 | disposition home or self-care (01) ==
LOC: ER 10:32
PROVIDERS: Emergency Medicine
DX: R00.0 Tachycardia, unspecified (principal); J44.9 Chronic obstructive pulmonary disease, unspecified; I25.2 Old myocardial infarction; I10 Essential (primary) hypertension; K21.9 Gastro-esophageal reflux disease without esophagitis; E78.5 Hyperlipidemia, unspecified; E11.9 Type 2 diabetes mellitus without complications; I25.810 Atherosclerosis of coronary artery bypass graft(s) without angina pectoris; Z95.1 Presence of aortocoronary bypass graft; Z79.82 Long term (current) use of aspirin; Z79.899 Other long term (current) drug therapy; Z79.4 Long term (current) use of insulin
CPT/HCPCS: 36415; 71045; 80053; 83880; 84443; 84484; 85025; 93005; 93010; 93246; 99285-25; J7030

== ENCOUNTER 2021-06-30 08:16 | Day surgery (SDC) | payer MEDICARE, OTHER ==
[~2021-06-30] VITALS: Ht 167.6 cm; Wt 75.0 kg
[~2021-06-30 08:16] MED LIST changes: -HUMALOG100 UNIT/1; +HUMALOG100 UNIT/1 SC; -LANTUS SOL100 UNIT/1; +LANTUS SOL100 UNIT/1 SC; +MVI PO; +NIZORAL TOP
[2021-06-30] MEDS ORDERED: MULTI-VITAMIN1 EAC2 PO (09:40)
--- NOTE | 2021-06-30 12:40 | NUR ---
PT TO RECOVERY ROOM POST PROCEDURE. PT AWAKE AND CONVERSING APPROPRIATELY; DENIES PAIN AT SITE POST PROCEDURE. MONITOR SR 60'S, B/P 111/57, AFEBRILE, SPO2 95% RA. L GROIN NO SWELLING/HEMATOMA, TEGADERM DRSG INTACT; PULSES DP ABS, PT DOP. PT TAKING SIPS OF H20.
--- NOTE | 2021-06-30 13:29 | NUR ---
REPORT TO ALEXANDER SUAREZ; ALL QUESTIONS ANSWERED.
--- NOTE | 2021-06-30 14:57 | NUR ---
[id number] PATIENT UP OOB TO THE RESTROOM. LEFT GROIN SITE STABLE. PATIENT DENIES ANY PAIN OR DISCOMFORT. ALLOWED TO DRESS AND CALL FOR RIDE HOME. PIV REMOVED AND PRESSURE DRESSING APPLIED. CATHETER TIP INTACT.
--- NOTE | 2021-06-30 15:18 | NUR ---
PATIENT DISCAHRGED HOME WITH INSTRUCTIONS AND WILL RETURN IN JUL. FOR THE LEFT LEG. HERE TO DRIVE PATEINT HOME.
[2021-07-19] MEDS ORDERED: ROSU10TA PO (13:09)
== END 2021-06-30 15:30 | disposition home or self-care (01) ==
LOC: MHTC 08:16
DX: E11.51 Type 2 diabetes mellitus with diabetic peripheral angiopathy without gangrene (principal); I70.223 Atherosclerosis of native arteries of extremities with rest pain, bilateral legs; I25.10 Atherosclerotic heart disease of native coronary artery without angina pectoris; I10 Essential (primary) hypertension; Z20.822 Contact with and (suspected) exposure to COVID-19
CPT/HCPCS: 75716; 75774; 76937; 85347; 99152; 99153; C1725; C1760; C1769; C1874; C1887; C1894; C2623; C9764; C9765; J1644; J2250; J3010; J7030; Q9967

== ENCOUNTER 2021-07-20 07:55 | Day surgery (SDC) | payer MEDICARE, OTHER ==
[~2021-07-20] VITALS: Ht 167.6 cm; Wt 76.0 kg
[~2021-07-20 07:55] MED LIST changes: +MULTI-VITAMIN1 EAC2 PO
[2021-07-20] MEDS ORDERED: Acerola C500 MG PO (09:05)
[2021-07-20] MEDS ORDERED: VITAMIN D5000 UNIT PO (09:06)
[2021-07-20 09:29] LABS: Anion Gap 8 mmol/L (6-16); Blood Urea Nitrogen 12 mg/dL (8-24); Bun/Creatinine Ratio 18.7 (12.0-20.0); CO2, Blood 27 mmol/L (21-32); Calcium, Blood 9.9 mg/dL (8.5-10.1); Chloride, Blood 105 mmol/L (98-108); Creatinine, Blood 0.64 mg/dL (0.60-1.20); Glomerular Filtration Rate >60 (60-); Glucose, Blood 269 mg/dL (70-99); Potassium, Blood 4.2 mmol/L (3.5-5.5); Sodium, Blood 140 mmol/L (136-145)
[2021-07-20 09:36] LABS: Influenza A, PCR NEGATIVE (NEGATIVE); Influenza B, PCR NEGATIVE (NEGATIVE); Resp Syncytial Virus, PCR NEGATIVE (NEGATIVE); SARS-Cov-2 (COVID-19) PCR, MMC NEGATIVE (NEGATIVE)
[2021-07-20] MEDS ORDERED: POTASSIUM GLUCO90 M1 PO (09:39)
--- NOTE | 2021-07-20 10:08 | NUR ---
IN ROOM TO SEE PT. DR PAUL ASSESSED PT'S LEFT FEMORAL GROIN SITE FROM PREVIOUS PROCEDURE.
--- NOTE | 2021-07-20 13:35 | NUR ---
ASSUMED CARE OF PT. PT DROWSY, BUT EASILY ROUSABLE, DENIES PAIN AT SITE. MONITOR SR 60'S, B/P 126/77, SPO2 95% RA. R GROIN NO SWELLING/HEMATOMA, TEGADERM DRSG INTACT, MYNX DEPLOYED; RLE PULSES 1+ X 2. PT TAKING SIPS OF H20 WITHOUT ISSUE.
--- NOTE | 2021-07-20 14:17 | NUR ---
PT'S HOB ELEVATED, SITE REMAINS UNCHANGED. PT TAKING LUNCH WITHOUT ISSUE.
--- NOTE | 2021-07-20 15:15 | NUR ---
PT AMB TO BATHROOM, GAIT STEADY; SITE UNCHANGED WITH ACTIVITY. PT DRESSED SELF WITHOUT ISSUE, SITE UNCHANGED; IV REMOVED-CANNULA INTACT.
--- NOTE | 2021-07-20 15:30 | NUR ---
PT RECEIVED DISCHARGE INSTRUCTIONS, MED LIST AND AFTER CARE INSTRUCTIONS; VERBALIZED GOOD UNDERSTANDING.
--- NOTE | 2021-07-20 15:47 | NUR ---
PT'S ARRIVED. PT LEFT FACILITY VIA W/C, CONDITION STABLE.
== END 2021-07-20 15:55 | disposition home or self-care (01) ==
LOC: MHTC 07:55
PROVIDERS: Radiology Diagnostic Radiology
DX: I70.223 Atherosclerosis of native arteries of extremities with rest pain, bilateral legs (principal); E11.51 Type 2 diabetes mellitus with diabetic peripheral angiopathy without gangrene; I10 Essential (primary) hypertension; I25.10 Atherosclerotic heart disease of native coronary artery without angina pectoris; Z20.822 Contact with and (suspected) exposure to COVID-19
CPT/HCPCS: 0241U; 37221; 37228; 75716; 75774; 76937; 80048; 99152; 99153; C1725; C1760; C1769; C1876; C1887; C1894; C9764; C9772; J1644; J2250; J3010; J7030; Q9967

== ENCOUNTER → 2022-02-28 | Outpatient (CLI) | payer MEDICARE, OTHER ==
[~2022-02-28] MED LIST changes: +Acerola C500 MG PO; +POTASSIUM GLUCO90 M1 PO; +VITAMIN D5000 UNIT PO
[2022-02-28 18:04] LABS: Albumin, Blood 3.6 g/dL (3.4-5.0); Bilirubin, Total 0.5 mg/dL (0.1-1.0); Bun/Creatinine Ratio 24.9 (12.0-20.0); Calcium, Blood 9.6 mg/dL (8.5-10.1); Creatinine, Blood 0.6 mg/dL (0.60-1.20); Globulin, Blood 3.7 g/dL (2.2-4.0); Potassium, Blood 4.2 mmol/L (3.5-5.5); Total Protein, Blood 7.3 g/dL (6.4-8.2)
== END | disposition home or self-care (01) ==
LOC: LAB SHORT 15:20
PROVIDERS: Internal Medicine Endocrinology, Diabetes & Metabolism
DX: E11.65 Type 2 diabetes mellitus with hyperglycemia (principal)
CPT/HCPCS: 36415; 80053; 83036

== ENCOUNTER 2022-12-15 07:05 | Day surgery (SDC) | payer MEDICARE, OTHER ==
[2022-12-15] VITALS (8 sets, daily range): BP systolic 129–151; BP diastolic 74–103
[~2022-12-15] VITALS: Ht 167.6 cm; Wt 71.2 kg
[~2022-12-15 07:05] MED LIST changes: +JARDIANCE10 MG PO; +TERB250 PO; +TRULICITY0.75 MG/01 INJ
[2022-12-15] MEDS ORDERED: Calcium Carbon500 MG PO (07:36)
--- NOTE | 2022-12-15 10:29 | NUR ---
PT ARRIVES TO RECOVERY PT REMAINS DROWSY, BUT ABLE TO ANSWER QUESTIONS. SITE REVIEWED WITH STEFAN MUNOZ. PT. L GROIN SOFT, NON TENDER, NO HEMATOMA. TEGADERM IN PLACE. CALL LIGHT IN REACH, FOOD TO BEDSIDE FOR WHEN PT IS READY TO EAT. PT REMAINS SUPINE AT THIS TIME. VSS. LÓPEZ.
--- NOTE | 2022-12-15 12:30 | NUR ---
HOB ELEVATED, PT. REPORTS PAIN TO RIGHT THIGH, MED WITH TYLENOL. GROIN SITE REMAINS WNL, NO HEMATOMA.
--- NOTE | 2022-12-15 13:00 | NUR ---
PT AMBULATED AT BEDSIDE, TOLERATED WELL. CONTINUES TO C/O PAIN TO RIGHT THIGH, SITE SOFT, NO HEMATOMA, NO REDNESS, NO SWELLING. PT EDUCATED ON THE IMPORTANCE OF MOVEMENT POST PROCEDURE. PT. GROIN SITE WNL, CALLED PT TO BE DISCHARGED HOME.
--- NOTE | 2022-12-15 14:00 | NUR ---
PT DISCHARGED HOME IV REMOVED, CATHETER INTACT. VSS. PT. TAKEN VIA WHEEL CHAIR TO CAR, PT. JALIL TO DRIVE PT HOME. PT. GROIN SITE WNL PRIOR TO DEPARTURE. VERBALIZED UNDERSTANDING OF DISCHARGE INSTRUCTIONS.
== END 2022-12-15 14:02 | disposition home or self-care (01) ==
LOC: MHTC 07:05
DX: I70.229 Atherosclerosis of native arteries of extremities with rest pain, unspecified extremity (principal); I10 Essential (primary) hypertension; E11.9 Type 2 diabetes mellitus without complications; J44.9 Chronic obstructive pulmonary disease, unspecified; I25.10 Atherosclerotic heart disease of native coronary artery without angina pectoris; I25.2 Old myocardial infarction; Z87.891 Personal history of nicotine dependence; Z88.5 Allergy status to narcotic agent; Z79.02 Long term (current) use of antithrombotics/antiplatelets
CPT/HCPCS: 76937; 85347; 99152; 99153; A9270; C1725; C1760; C1769; C1874; C1887; C1894; J1644; J2250; J3010; J7030; J7050; Q9967

== ENCOUNTER 2023-07-01 20:04 | Inpatient (IN) | payer OTHER ==
[~2023-07-01] VITALS: Ht 167.6 cm; Wt 67.5 kg
[~2023-07-01 20:04] MED LIST changes: +Calcium Carbon500 MG PO
[2023-07-01 20:59] LABS: BASOPHILS ABSOLUTE AUTO 0.08 K/mm3 (0.00-0.23); BASOPHILS PERCENT AUTO 0 % (0-2); EOSINOPHILS ABSOLUTE AUTO 0.01 K/mm3 (0.00-0.68); EOSINOPHILS PERCENT AUTO 0 % (0-6); Hematocrit 47.9 % (37.0-53.0); Hemoglobin 15.3 g/dL (13.5-17.5); IMMATURE GRAN ABSOLUTE AUTO 0.19 K/mm3 (0.00-0.10); IMMATURE GRAN PERCENT AUTO 1 % (0-1); LYMPHOCYTES ABSOLUTE AUTO 3.77 K/mm3 (0.84-5.20); LYMPHOCYTES PERCENT AUTO 19 % (21-46); MONOCYTES ABSOLUTE AUTO 1.52 K/mm3 (0.16-1.47); MONOCYTES PERCENT AUTO 8 % (4-13); Mean Corpuscular HGB 34.1 pg (26.0-34.0); Mean Corpuscular HGB Conc 31.9 g/dL (31.5-36.5); Mean Corpuscular Volume 107 fL (80-100); Mean Platelet Volume 9.5 fL (9.1-12.4); NEUTROPHILS ABSOLUTE AUTO 14.57 K/mm3 (1.96-9.15); NEUTROPHILS PERCENT AUTO 73 % (41-73); Platelet Count 291 K/mm3 (150-400); RDW Coefficient Variation 12.3 % (11.7-14.2); RDW Standard Deviation 48.8 fL (35.1-46.3); Red Blood Cell Count 4.49 M/mm3 (4.30-5.90); White Blood Cell Count 20.14 K/mm3 (4.00-11.30)
[2023-07-01 21:03] LABS: Base Excess Venous -30.2 mmol/L; PCO2 Venous 33.9 mmHg (38-42); pH Blood Venous <6.80 (7.34-7.37)
[2023-07-01 21:18] LABS: PCO2 Venous 33.1 mmHg (38-42)
[2023-07-01 21:21] LABS: Bicarbonate Venous 5.7 mmol/L (24.0-30.0)
[2023-07-01 21:22] LABS: pH Blood Venous <6.80 (7.34-7.37)
[2023-07-01 21:26] LABS: Magnesium, Blood 2.7 mg/dL (1.6-2.4)
[2023-07-01 21:33] LABS: Albumin, Blood 4.2 g/dL (3.4-5.0); Bilirubin, Total 0.4 mg/dL (0.1-1.0); Bun/Creatinine Ratio 27.7 (12.0-20.0); Calcium, Blood 8.9 mg/dL (8.5-10.1); Creatinine, Blood 0.94 mg/dL (0.60-1.20); Phosphorus, Blood 8.5 mg/dL (2.5-4.9); Potassium, Blood 4.7 mmol/L (3.5-5.5); Total Protein, Blood 8.2 g/dL (6.4-8.2)
[2023-07-02] VITALS (42 sets, daily range): BP systolic 80–132; BP diastolic 49–93
[2023-07-02 00:48] LABS: Base Excess Venous -31.1 mmol/L; Bicarbonate Venous 5.4 mmol/L (24.0-30.0); PCO2 Venous 30.2 mmHg (38-42); pH Blood Venous <6.80 (7.34-7.37)
--- NOTE | 2023-07-02 01:16 | NUR ---
ARRIVAL TO ICU: RECEIVED REPORT FROM ASIA MUNOZ. PT ARRIVED TO ICU 14 FROM ER VIA GURNEY. PT SLID ACROSS TO ICU BED. PT ALERT AND ORIENTED TO PERSON, PLACE AND SELF. HAS PERIODS OF CONFUSION AND OFTEN REPEATS HIMSELF. REDIRECTABLE. FOLLOWS SIMPLE COMMANDS AND ANSWERS SIMPLE QUESTIONS. PT ON RA WITH SPO2 >95%. DENIES SOB. ASSEMBLY LEAD PERSON IN PLACE, SR WITH HR 90'S. SBP 120'S. PT DENIES N/V, ENDORSES DRINKING A BOTTLE OF WINE AND A FEW BEERS A DAY. STATES LAST DRINK WAS YESTERDAY. NO TREMORS, HALLUCINATIONS NOTED. DENIES HEADACHE. DENIES PAIN. PT ON INSULIN DRIP AT 7 UNITS/HR. KCL AT 250 ML/HR. PIV TO LEFT AC, INTACT AND INFUSING. PIV TO RAC, INTACT AND INFUSING. ABLE TO TRANSFER TO BSC WITH ASSISTANCE, VOIDING YELLOW URINE. BED LOW AND LOCKED. CALL LIGHT IN REACH.
[2023-07-02 01:25] LABS: Magnesium, Blood 2.5 mg/dL (1.6-2.4)
[2023-07-02 01:29] LABS: Anion Gap 24 mmol/L (6-16); Blood Urea Nitrogen 23 mg/dL (8-24); Bun/Creatinine Ratio 26.9 (12.0-20.0); CO2, Blood 7 mmol/L (21-32); Calcium, Blood 7.7 mg/dL (8.5-10.1); Chloride, Blood 111 mmol/L (98-108); Creatinine, Blood 0.85 mg/dL (0.60-1.20); Glomerular Filtration Rate 95 (60-); Glucose, Blood 348 mg/dL (70-99); Phosphorus, Blood 6.3 mg/dL (2.5-4.9); Potassium, Blood 4.7 mmol/L (3.5-5.5); Sodium, Blood 142 mmol/L (136-145)
[2023-07-02 02:05] LABS: Ethanol (Alcohol), Blood, Med <3 mg/dL
[2023-07-02 04:58] LABS: Source, Urine Clean Catch
[2023-07-02 05:07] LABS: Hematocrit 46.9 % (37.0-53.0); Hemoglobin 14.8 g/dL (13.5-17.5); Mean Corpuscular HGB 34.3 pg (26.0-34.0); Mean Corpuscular HGB Conc 31.6 g/dL (31.5-36.5); Mean Corpuscular Volume 109 fL (80-100); Mean Platelet Volume 9.4 fL (9.1-12.4); Platelet Count 215 K/mm3 (150-400); RDW Coefficient Variation 12.2 % (11.7-14.2); RDW Standard Deviation 48.9 fL (35.1-46.3); Red Blood Cell Count 4.32 M/mm3 (4.30-5.90); White Blood Cell Count 18.32 K/mm3 (4.00-11.30)
[2023-07-02 05:11] LABS: Appearance, Urine Clear (Clear); Bilirubin, Urine Neg (Neg); Blood, Urine 3+ (Neg); Glucose Qualitative, Urine 4+ (Neg); Ketones, Urine 4+ (Neg); Leukocyte Esterase, Urine Neg (Neg); Nitrite, Urine Neg (Neg); Protein, Urine 3+ (Neg); Specific Gravity, Urine 1.025 (1.003-1.022); Urobilinogen, Urine NORM (Normal)
[2023-07-02 05:13] LABS: pH Blood Venous 6.95 (7.34-7.37)
[2023-07-02 05:14] LABS: Base Excess Venous -28.1 mmol/L; Bicarbonate Venous 7.3 mmol/L (24.0-30.0); PCO2 Venous 18.8 mmHg (38-42)
[2023-07-02 05:49] LABS: Color, Urine No Color (P-Yellow)
[2023-07-02 05:51] LABS: Bun/Creatinine Ratio 31.5 (12.0-20.0); Calcium, Blood 8.2 mg/dL (8.5-10.1); Creatinine, Blood 0.73 mg/dL (0.60-1.20); Potassium, Blood 4.9 mmol/L (3.5-5.5)
[2023-07-02 06:08] LABS: Amorphous Light (0-Heavy); Bacteria Not Seen /hpf; Mucus Light (0-Heavy); Red Blood Cells, Urine 0-2 /hpf (0-2); Squamous Epithelial Cells Not Seen /hpf (Few); White Blood Cells, Urine Not Seen /hpf (0-5)
--- NOTE | 2023-07-02 06:21 | NUR ---
SHIFT SUMMARY: NO ACUTE EVENTS T/O THE SHIFT. PT REMAINS ALERT AND ORIENTED X2-3 WITH PERIODS OF CONFUSION AT TIMES. EASILY REORIENTED. PT ON RA T/O THE SHIFT, SPO2 >95% DENIES SOB. DENIES PAIN, DENIES N/V. BRADDISHER IN PLACE, SR WITH HR 80'S. SBP 100'S-120'S. NO C/O CHEST PAIN OR PRESSURE. INSULIN DRIP AT 9 UNITS/HR. D5 1/2 AT 200 ML/HR. PIV TO RAC, INTACT AND INFUSING. PIV TO LAC INTACT AND INFUSING. PT ABLE TO TRANSFER TO BSC WITH ASSISTANCE, VOIDING YELLOW URINE. NO BM YET. BED LOW AND LOCKED. CALL LIGHT IN REACH.
[2023-07-02 09:11] LABS: Base Excess Venous -19.4 mmol/L; Bicarbonate Venous 11.1 mmol/L (24.0-30.0); PCO2 Venous 26.6 mmHg (38-42)
[2023-07-02 09:12] LABS: pH Blood Venous 7.16 (7.34-7.37)
[2023-07-02 09:46] LABS: Calcium, Blood 7.7 mg/dL (8.5-10.1); Creatinine, Blood 0.68 mg/dL (0.60-1.20); Potassium, Blood 4.5 mmol/L (3.5-5.5)
[2023-07-02 11:41] LABS: Adenovirus Not Detected (NOT DETECT); Bordetella pertussis Not Detected (NOT DETECT); Chlamydophila pneumoniae Not Detected (NOT DETECT); Coronavirus 229E Not Detected (NOT DETECT); Coronavirus HKU1 Not Detected (NOT DETECT); Coronavirus NL63 Not Detected (NOT DETECT); Coronavirus OC43 Not Detected (NOT DETECT); Human Metapneumovirus Not Detected (NOT DETECT); Human Rhinovirus/Enterovirus Not Detected (NOT DETECT); Influenza A/2009-H1 Not Detected (NOT DETECT); Influenza A/H1 Not Detected (NOT DETECT); Influenza A/H3 Not Detected (NOT DETECT); Influenza B Not Detected (NOT DETECT); Mycoplasma pneumoniae Not Detected (NOT DETECT); Parainfluenza Virus 1 Not Detected (NOT DETECT); Parainfluenza Virus 2 Not Detected (NOT DETECT); Parainfluenza Virus 3 Not Detected (NOT DETECT); Parainfluenza Virus 4 Not Detected (NOT DETECT); Respiratory Syncytial Virus Not Detected (NOT DETECT); SARS-Cov-2 (COVID-19), BioFire Not Detected (NOT DETECT)
[2023-07-02 12:35] LABS: Bun/Creatinine Ratio 31.8 (12.0-20.0); Creatinine, Blood 0.69 mg/dL (0.60-1.20); Potassium, Blood 3.8 mmol/L (3.5-5.5)
[2023-07-02 16:18] LABS: Base Excess Venous -0.3 mmol/L; Bicarbonate Venous 25.4 mmol/L (24.0-30.0); PCO2 Venous 22.6 mmHg (38-42); pH Blood Venous 7.59 (7.34-7.37)
[2023-07-02 16:58] LABS: Bun/Creatinine Ratio 29.9 (12.0-20.0); Calcium, Blood 7.5 mg/dL (8.5-10.1); Creatinine, Blood 0.6 mg/dL (0.60-1.20); Potassium, Blood 3.5 mmol/L (3.5-5.5)
--- NOTE | 2023-07-02 17:27 | NUR ---
SHIFT SUMMARY NO ACUTE CHANGES THIS SHIFT. PT HAS SLEPT MOST OF THE SHIFT, BUT IS EASY TO WAKE. PT IS ALERT AND ORIENTED WHEN AWAKE. PT ANSWERS QUESTIONS APPROPRIATELY, BUT IS SLOW TO RESPOND AT TIMES. VITAL SIGNS HAVE REMAINED STABLE. PT ON ROOM AIR. PT CONTINUES TO COMPLAIN OF SORE THROAT THROUGHOUT THE SHIFT. PT HAS DECLINED THROAT LOZENGES OR SPRAYS. PT TAKING ICE CHIPS. PIV'S REMAIN IN PLACE. PT HAS REMAINED ON INSULIN GTT AND D5 BICARB GTT THROUGHOUT THE SHIFT. ORDERS RECIEVED AT THIS TIME FOR TRANSITION TO SLIDING SCALE INSULIN AND OFF INSULIN GTT. PT UP TO BSC TO VOID WITH 1 PERSON ASSIST. PT REPOSITIONS SELF IN BED INDEPENDENTLY. PT SPOUSE AT BEDSIDE FOR SHORT TIME THIS SHIFT. WILL CONTINUE TO MONITOR AND REPORT OFF TO ONCOMING RN.
--- NOTE | 2023-07-02 19:35 | NUR ---
PATIENT RESTING QUIETLY, AWAKENS TO SLIGHT STIMULI. VOICE WHISPER, ANSWERING QUESTIONS APPROPRIATELY. DRY NON PRODUCTIVE COUGH. CONTINUES TO C/O SORE THROAT. INSULIN DRIP REMAINS OFF.
[2023-07-02 20:44] LABS: Bun/Creatinine Ratio 27.2 (12.0-20.0); Creatinine, Blood 0.62 mg/dL (0.60-1.20); Potassium, Blood 3.2 mmol/L (3.5-5.5)
[2023-07-03] VITALS (16 sets, daily range): BP systolic 93–132; BP diastolic 53–69
[2023-07-03 00:48] LABS: Calcium, Blood 8.2 mg/dL (8.5-10.1); Creatinine, Blood 0.64 mg/dL (0.60-1.20); Potassium, Blood 3.3 mmol/L (3.5-5.5)
[2023-07-03 04:50] LABS: Bun/Creatinine Ratio 28.1 (12.0-20.0); Calcium, Blood 8.3 mg/dL (8.5-10.1); Creatinine, Blood 0.61 mg/dL (0.60-1.20)
--- NOTE | 2023-07-03 06:54 | NUR ---
SUMMARY PATIENT SLEEPING OFF AND ON T/O NIGHT. PLEASANT AND COOPERATIVE. CIWA REMAINING 0 T/O NIGHT. UP TO BSC TO VOID WITH MIN ASSISTANCE. DOCTOR DANIELE NOTIFIED OF CONTINUED DROP IN POTASSIUM LEVEL, KRIDER INFUSING. INSULIN DRIP REMAINS OFF.
--- NOTE | 2023-07-03 08:00 | NUR ---
INITIAL ASSESSMENT: PATIENT IS LYING IN BED WITH EYES CLOSED, EASILY AWAKENS WITH VERBAL STIMULI. HE IS ALERT AND ORIENTED X4, REPORTS A SORE THORAT FROM VOMITING FOR A COUPLE OF DAYS AT HOME. HRR, HE IS IN NSR WITH A RATE IN THE 70S-80S, BLOOD PRESSURES HAD BEEN SOFT BUT ARE BETTER THIS MORNING. LS DIM IN THE BASES, BIOX IS 97% ON RA. BT+. PPP. HIS BLOOD SUGAR IS AROUND 230S, 6 UNITS OF HUMALOG AND 15 UNITS OF LANTUS GIVEN THIS AM. 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 HE DENIES OTHER NEEDS AT THIS TIME. CALL LIGHT IN REACH.
--- NOTE | 2023-07-03 08:30 | NUR ---
Update: Patients anion gap is 19, call placed to Dr. Cornejo-see new orders. Insulin gtt ordered along with D5 with 1/2 NS at 100 ml/hr. Patient educated on changes. He denies other needs at this time. Call light in reach.
[2023-07-03 09:06] LABS: Bun/Creatinine Ratio 23.3 (12.0-20.0); Calcium, Blood 8.3 mg/dL (8.5-10.1); Creatinine, Blood 0.6 mg/dL (0.60-1.20); Potassium, Blood 3.5 mmol/L (3.5-5.5)
[2023-07-03 12:30] LABS: Bun/Creatinine Ratio 24.6 (12.0-20.0); Calcium, Blood 8.6 mg/dL (8.5-10.1); Creatinine, Blood 0.57 mg/dL (0.60-1.20); Potassium, Blood 3.7 mmol/L (3.5-5.5)
[2023-07-03 17:18] LABS: Bun/Creatinine Ratio 22.2 (12.0-20.0); Calcium, Blood 8.6 mg/dL (8.5-10.1); Creatinine, Blood 0.63 mg/dL (0.60-1.20); Potassium, Blood 3.8 mmol/L (3.5-5.5)
--- NOTE | 2023-07-03 18:06 | NUR ---
SUMMARY: Patient has been alert and oriented T/O the shift. He hasn't been sleeping much so he napped off and on through out the day. He has been able to transfer to the bedside commode with a standby assist to manage lines and tubes. HRR, SR 60s-80s blood pressures soft at times, Metoprolol was given this AM. LS CTA, he has been mis 90s on RA. BT+, no nausea or vomiting. This morning his anion gap increased to 19, thus the insulin gtt and D51/2 NS ran for about 4 hours. In the afternoon I was able to give more long acting insulin and turn the gtt off. Plan for DC in the AM, patient has been downgraded to PCU status. Will report to oncoming RN.
--- NOTE | 2023-07-03 19:55 | NUR ---
AOC: PATIENT IS ALERT AND ORIENTED X 4, PLEASANT COOPERATIVE, ABLE TO MAKE NEEDS KNOWN, SPO2 >95% NO RA, DENIES CHEST PAIN PRESSURE OR SOB. VSS, AFEBRILE. DENIES DIFFIULTY URINATING, NO MEDICATIONS INFUSING. ONLY CONCERN IS THE ORDER FOR SHORT ACTING INSULIN NOW THAT HE IS OFF THE DRIP.
[2023-07-04 00:40] VITALS: BP 114/72
[2023-07-04 04:41] VITALS: BP 110/72
[2023-07-04 05:05] LABS: BASOPHILS ABSOLUTE AUTO 0.02 K/mm3 (0.00-0.23); BASOPHILS PERCENT AUTO 0 % (0-2); EOSINOPHILS ABSOLUTE AUTO 0.04 K/mm3 (0.00-0.68); EOSINOPHILS PERCENT AUTO 1 % (0-6); Hematocrit 33.7 % (37.0-53.0); IMMATURE GRAN ABSOLUTE AUTO 0.02 K/mm3 (0.00-0.10); IMMATURE GRAN PERCENT AUTO 0 % (0-1); LYMPHOCYTES ABSOLUTE AUTO 2.15 K/mm3 (0.84-5.20); LYMPHOCYTES PERCENT AUTO 37 % (21-46); MONOCYTES ABSOLUTE AUTO 0.69 K/mm3 (0.16-1.47); MONOCYTES PERCENT AUTO 12 % (4-13); Mean Corpuscular HGB 34.2 pg (26.0-34.0); Mean Corpuscular HGB Conc 35.6 g/dL (31.5-36.5); Mean Platelet Volume 9.5 fL (9.1-12.4); NEUTROPHILS ABSOLUTE AUTO 2.94 K/mm3 (1.96-9.15); NEUTROPHILS PERCENT AUTO 50 % (41-73); Platelet Count 130 K/mm3 (150-400); RDW Coefficient Variation 13.2 % (11.7-14.2); RDW Standard Deviation 45.9 fL (35.1-46.3); Red Blood Cell Count 3.51 M/mm3 (4.30-5.90); White Blood Cell Count 5.86 K/mm3 (4.00-11.30)
[2023-07-04 05:17] LABS: Albumin, Blood 2.6 g/dL (3.4-5.0); Albumin/Globulin Ratio 0.9 (0.8-1.8); Bilirubin, Total 0.5 mg/dL (0.1-1.0); Bun/Creatinine Ratio 33.7 (12.0-20.0); Calcium, Blood 8.6 mg/dL (8.5-10.1); Creatinine, Blood 0.51 mg/dL (0.60-1.20); Globulin, Blood 2.9 g/dL (2.2-4.0); Potassium, Blood 3.4 mmol/L (3.5-5.5); Total Protein, Blood 5.5 g/dL (6.4-8.2)
--- NOTE | 2023-07-04 05:17 | NUR ---
SHIFT SUMMARY NO CUTE CHANGES SINCE TRANSFER TO PCU NOTE. REMAINS A/Ox4 AND COOPERATIVE WITH CARE. ANSWERS QUESTIONS APPROPRIATELY AND ABLE TO MAKE HIS NEEDS KNOWN. CARDIAC, CONTINUES TO BE IN SB-SR WITH INTERMITTENT PVC'S 50-80'S WITH NO COMPLAINTS OF CP OR PRESSURE T/O THE NIGHT. SBP HAS BEEN STABLE 110-120'S. RESPIRATORY, MAINTAINS SPO2 >92% ON RA WITH NO REPORTS OF SOB OR DYSPNEA WHILE AT REST. GI/, ABLE TO STAND PIVOT TO BSC WITH MINIMAL STAFF ASSIST. NO BM NOTED THIS SHIFT. BS PRESENT IN ALL QUADRANTS. DENIES ANY PAIN. ASSESSED PT FOR RISKS OF ANY IGNITION SOURCES WELL BEHAVIORS FOR INCREASED RISKS OF FIRE DANGER. PT EDUCATED ON COMMON SOURCES OF IGNITION WELL NEED TO KEEP A SAFE ENVIRONMENT. PT VOICED UNDERSTANDING. NO NEW ORDERS AT THIS TIME, WILL REPORT TO ONCOMING RN. MARIBEL SARABIA OF THIS NOTE
[2023-07-04 05:22] LABS: Mean Corpuscular Volume 96 fL (80-100)
[2023-07-04 07:37] VITALS: BP 118/71
--- NOTE | 2023-07-04 10:08 | NUR ---
AM NOTE: PATIENT ALERT AND ORIENTED X4. VERY HOPEFUL HE GETS TO GO HOME THIS MORNING. DENIES PAIN. STATES HE HAS CHRONINC NEUROPATHY TO BILATERAL LOWER EXTREMITIES. PERRLA. DENIES HEADACHE/VISION CHANGES. UP TO BATHROOM WITH SBA. MOVING ALL EXTREMITIES EQUALLY. ON ROOM AIR SATING ABOVE 95%. LUNGS SOUNDS CLEAR AND DIM IN BASES. DENIES COUGH/SOB. EVEN AND UNLABORED RESPIRATIONS. TELE SHOWING SB/SR WITH HR 50-80'S. DENIES CHEST PAIN/PRESSURE/PALPITATIONS. BP STABLE. NO SIGNS OF EDEMA. PATIENT REFUSING LOVENOX AND SCD'S THIS AM. PPP. DENIES ABDOMINAL PAIN/NAUSEA. EATING WNL. BOWEL TONES PRESENT. SKIN OVERALL PALE WITH SOME DISCOLORATION TO BLE. CALL LIGHT IN REACH. PATIENT DENIES NEEDS AT THIS TIME.
[2023-07-04 11:08] VITALS: BP 108/61
--- NOTE | 2023-07-04 12:42 | NUR ---
DISCHARGE: NO ACUTE CHANGES, SEE PREVIOUS NOTE. PATIENT VITALS STABLE. AFTERNOON BLOOD SUGAR MANAGED WITH SC INSULIN PER EMAR. PATIENT ATE LUNCH. IV REMOVED WNL. NO NEW MEDICATIONS. THIS RN REVIEWED WHAT MEDICATION TO STOP AND WHEN TO COME BACK BASESD ON SIGNS AND SYMPTOMS. THIS RN REVIEWED HOME MEDS AND FOLLOW UP APPOINTMENT. PATIENT LEFT UNIT WITH ALL PERSONAL BELONGINGS INCLUDING DISCHARGE PACKET VIA WHEELCHAIR.
== END 2023-07-04 13:58 | disposition home or self-care (01) | DRG 639 ==
LOC: ER 20:04 → ICUE 20:05 → PCU 07-02 15:05 → ICUE 07-02 15:05 → PCU 07-04 00:40
PROVIDERS: Family Medicine; Internal Medicine; Student in an Organized Health Care Education/Training Program; ADMIT Student in an Organized Health Care Education/Training Program
PROC: HZ2ZZZZ Detoxification Services for Substance Abuse Treatment (ICD-10-PCS; principal; 2023-07-03)
DX: E11.10 Type 2 diabetes mellitus with ketoacidosis without coma (principal); I10 Essential (primary) hypertension; I25.10 Atherosclerotic heart disease of native coronary artery without angina pectoris; F10.10 Alcohol abuse, uncomplicated; E11.51 Type 2 diabetes mellitus with diabetic peripheral angiopathy without gangrene; J44.9 Chronic obstructive pulmonary disease, unspecified; E78.5 Hyperlipidemia, unspecified; K21.9 Gastro-esophageal reflux disease without esophagitis; E83.42 Hypomagnesemia; E83.39 Other disorders of phosphorus metabolism; T38.3X6A Underdosing of insulin and oral hypoglycemic [antidiabetic] drugs, initial encounter; I25.2 Old myocardial infarction; Z95.5 Presence of coronary angioplasty implant and graft; Z95.1 Presence of aortocoronary bypass graft; Z88.5 Allergy status to narcotic agent; Z79.4 Long term (current) use of insulin; Z79.02 Long term (current) use of antithrombotics/antiplatelets; Z79.84 Long term (current) use of oral hypoglycemic drugs; Z79.85 Long-term (current) use of injectable non-insulin antidiabetic drugs; Z87.891 Personal history of nicotine dependence; Z91.138 Patient's unintentional underdosing of medication regimen for other reason
CPT/HCPCS: 0202U; 36415; 71045; 80048; 80053; 81001; 82330; 82803; 82947; 83036; 83735; 83880; 83930; 84100; 85025; 85027; 93005; 93010; 94762; 96361; 96365; 96366; 96367; 96372; 96376; 99285-25; A9270; G0378; J1650; J1815; J3480; J7030; J7042; J7050; J7070; J7120

== ENCOUNTER → 2023-08-25 | Outpatient (CLI) | payer OTHER ==
[2023-08-25 16:09] LABS: CHOL/HDL RATIO 2.1; Cholesterol 67 mg/dL (50-200); HDL Cholesterol 32 mg/dL (>39); LDL/HDL RATIO Unable to Calculate; Low Density Lipoprotein Chol Unable to Calculate mg/dL (0-110); Triglycerides 273 mg/dL (30-160); Very Low Density Lipoprot Chol 54 mg/dL (6-32)
[2023-08-25 16:21] LABS: BASOPHILS ABSOLUTE AUTO 0.04 K/mm3 (0.00-0.23); BASOPHILS PERCENT AUTO 1 % (0-2); EOSINOPHILS ABSOLUTE AUTO 0.05 K/mm3 (0.00-0.68); EOSINOPHILS PERCENT AUTO 1 % (0-6); Hematocrit 40.4 % (37.0-53.0); Hemoglobin 13.9 g/dL (13.5-17.5); IMMATURE GRAN ABSOLUTE AUTO 0.01 K/mm3 (0.00-0.10); IMMATURE GRAN PERCENT AUTO 0 % (0-1); LYMPHOCYTES ABSOLUTE AUTO 1.89 K/mm3 (0.84-5.20); LYMPHOCYTES PERCENT AUTO 33 % (21-46); MONOCYTES ABSOLUTE AUTO 0.71 K/mm3 (0.16-1.47); MONOCYTES PERCENT AUTO 12 % (4-13); Mean Corpuscular HGB 33.8 pg (26.0-34.0); Mean Corpuscular HGB Conc 34.4 g/dL (31.5-36.5); Mean Corpuscular Volume 98 fL (80-100); Mean Platelet Volume 9.7 fL (9.1-12.4); NEUTROPHILS ABSOLUTE AUTO 3.08 K/mm3 (1.96-9.15); NEUTROPHILS PERCENT AUTO 53 % (41-73); Platelet Count 172 K/mm3 (150-400); RDW Coefficient Variation 12.1 % (11.7-14.2); RDW Standard Deviation 43.9 fL (35.1-46.3); Red Blood Cell Count 4.11 M/mm3 (4.30-5.90); White Blood Cell Count 5.78 K/mm3 (4.00-11.30)
[2023-08-27 03:42] LABS: A/G RATIO 1.6 (1.2-2.2); BILIRUBIN, TOTAL 0.3 mg/dL (0.0-1.2); CALCIUM, SERUM 9.7 mg/dL (8.6-10.2); CREATININE, SERUM 0.73 mg/dL (0.76-1.27); GLOBULIN, TOTAL 2.4 g/dL (1.5-4.5); POTASSIUM, SERUM 4.6 mmol/L (3.5-5.2); PROTEIN, TOTAL, SERUM 6.3 g/dL (6.0-8.5)
== END ==
LOC: LAB 14:43 → LAB SHORT 14:43
PROVIDERS: Physician Assistant
DX: E11.65 Type 2 diabetes mellitus with hyperglycemia (principal); E78.2 Mixed hyperlipidemia; I10 Essential (primary) hypertension
CPT/HCPCS: 36415; 80053; 80061; 83036; 85025

== ENCOUNTER 2024-01-09 11:17 | Day surgery (SDC) | payer OTHER ==
[2024-01-09] VITALS (9 sets, daily range): BP systolic 112–137; BP diastolic 52–79
[~2024-01-09] VITALS: Ht 167.6 cm; Wt 65.9 kg
[~2024-01-09 11:17] MED LIST changes: +ASPI81CH PO; +Crestor40 MG PO; +VITAMIN D325 MC3 PO; +Vitamin B-12100 MCG PO
[2024-01-09] MEDS ORDERED: Heparin Sodium 1000 Units/ML 10ML MDV ONE (11:23)
[2024-01-09] MEDS ORDERED: NS 250 ML IV ONE (11:24)
[2024-01-09] MEDS ORDERED: NS 1,000 ML IV ONE ×2 (11:24→12:55)
[2024-01-09] MEDS ORDERED: HUMALOG KW100 UNIT/1 SC (11:41)
[2024-01-09] MEDS ORDERED: FentaNYL Citrate 50 MCG/ML 2 ML Injection ONE ×2 (12:55→13:16)
[2024-01-09] MEDS ORDERED: Midazolam HCl 1MG / ML 2ML Vial ONE ×2 (12:55→13:16)
--- NOTE | 2024-01-09 14:15 | NUR ---
PATIENT ARRIVED TO RECOVERY ROOM WITH HOB FLAT. L GROIN SITE C/D/I SOFT/NONTENDER, NO EVIDENCE OF BLEEDING. VSS ON RA. PATIENT DENYING ANY PAIN.
--- NOTE | 2024-01-09 15:07 | NUR ---
HOB ELEVATED. L GROIN SITE C/D/I SOFT/NONTENDER, NO EVIDENCE OF BLEEDING. VSS ON RA.
--- NOTE | 2024-01-09 15:53 | NUR ---
PATIENT AMBULATING TO RESTROOM WITHOUT DIFFICULTY. VSS ON RA. L GROIN SITE C/D/I SOFT/NONTENDER, NO EVIDENCE OF BLEEDING.
--- NOTE | 2024-01-09 16:10 | NUR ---
DISCHARGE INSTURCTIONS REVIEWED WITH PATIENT. ALL QUESTIONS ANSWERED. PIV REMOVED WITHOUT DIFFICULTY, CATHETER INTACT.
--- NOTE | 2024-01-09 16:21 | NUR ---
PATIENT WHEELED TO HOSPITAL ENTRANCE, SPOUSE ABLE TO PROVIDE TRANSPORTATION HOME. ALL PATIENT BELONGINGS LEFT WITH PATIENT
== END 2024-01-09 16:10 | disposition home or self-care (01) ==
LOC: MHTC 11:17
DX: E11.51 Type 2 diabetes mellitus with diabetic peripheral angiopathy without gangrene (principal); I70.221 Atherosclerosis of native arteries of extremities with rest pain, right leg; J44.9 Chronic obstructive pulmonary disease, unspecified; E78.5 Hyperlipidemia, unspecified; K21.9 Gastro-esophageal reflux disease without esophagitis; I10 Essential (primary) hypertension; I25.2 Old myocardial infarction; Z88.5 Allergy status to narcotic agent
CPT/HCPCS: 75625; 75716; 75774; 76937; 99152; 99153; C1725; C1760; C1769; C1887; C1894; C2623; C9764; J1644; J2250; J3010; J7030; J7050; Q9967

== ENCOUNTER 2024-02-29 16:18 | Inpatient (IN) | payer OTHER ==
[~2024-02-29] VITALS: Ht 167.6 cm; Wt 61.4 kg
[2024-02-29] VITALS (10 sets, daily range): BP systolic 84–143; BP diastolic 30–115
[~2024-02-29 16:18] MED LIST changes: +HUMALOG KW100 UNIT/1 SC
[2024-02-29] MEDS ORDERED: NS 1,000 ML IV SCH (16:30)
[2024-02-29 16:31] LABS: Calcium, Ionized (POC) 1.16 mmol/L (1.10-1.46); Chloride (POC) 110 mmol/L (98-108); Creatinine (POC) 0.9 mg/dL (0.8-1.3); Glucose (ISTAT POC) 400 mg/dL (70-99); Hemoglobin (POC) 13.3 g/dL (13.5-17.5); Potassium (POC) 4.1 mmol/L (3.5-5.5); Sodium (POC) 138 mmol/L (135-148); Total CO2 (POC) 5 mmol/L (21-32)
[2024-02-29 16:44] LABS: BASOPHILS ABSOLUTE AUTO 0.05 K/mm3 (0.00-0.23); BASOPHILS PERCENT AUTO 0 % (0-2); EOSINOPHILS ABSOLUTE AUTO 0.01 K/mm3 (0.00-0.68); EOSINOPHILS PERCENT AUTO 0 % (0-6); Hemoglobin 12.8 g/dL (13.5-17.5); IMMATURE GRAN ABSOLUTE AUTO 0.18 K/mm3 (0.00-0.10); IMMATURE GRAN PERCENT AUTO 1 % (0-1); LYMPHOCYTES ABSOLUTE AUTO 3.56 K/mm3 (0.84-5.20); LYMPHOCYTES PERCENT AUTO 20 % (21-46); MONOCYTES ABSOLUTE AUTO 1.17 K/mm3 (0.16-1.47); MONOCYTES PERCENT AUTO 7 % (4-13); Mean Corpuscular HGB 33.8 pg (26.0-34.0); Mean Corpuscular Volume 106 fL (80-100); Mean Platelet Volume 8.8 fL (9.1-12.4); NEUTROPHILS ABSOLUTE AUTO 12.81 K/mm3 (1.96-9.15); NEUTROPHILS PERCENT AUTO 72 % (41-73); Platelet Count 306 K/mm3 (150-400); RDW Coefficient Variation 11.9 % (11.7-14.2); RDW Standard Deviation 46.5 fL (35.1-46.3); Red Blood Cell Count 3.79 M/mm3 (4.30-5.90); White Blood Cell Count 17.78 K/mm3 (4.00-11.30)
[2024-02-29 16:47] LABS: PCO2 Venous 19.2 mmHg (38-42); pH Blood Venous < 6.82 (7.34-7.37)
[2024-02-29 16:48] LABS: Base Excess Venous -31.4 mmol/L; Bicarbonate Venous 5.1 mmol/L (24.0-30.0)
[2024-02-29] MEDS ORDERED: Insulin Human Regular 100 UNIT in NS 100 ML IV SCH (16:50)
[2024-02-29] MEDS ORDERED: Lactated Ringer's 1,000 ML IV ONE ×2 (16:50→18:10)
[2024-02-29] MEDS ORDERED: Magnesium Sulf 2 GM/Water 50ML 50 ML IV ONE (16:50)
[2024-02-29] MEDS ORDERED: Potassium Chl 20MEQ/Water100ML 100 ML IV ONE (16:50)
[2024-02-29 17:12] LABS: Magnesium, Blood 2.7 mg/dL (1.6-2.4)
[2024-02-29] MEDS ORDERED: Sodium Bicarb 8.4% 1 MEQ/ML 50 ML Vial IV STA (17:42)
[2024-02-29 18:01] LABS: Source, Urine Clean Catch
[2024-02-29 18:08] LABS: Alanine Aminotransfer (ALT/SGP 31 U/L (12-78); Albumin, Blood 2.9 g/dL (3.4-5.0); Albumin/Globulin Ratio 0.7 (0.8-1.8); Alk Phos 109 U/L (50-136); Anion Gap 33 mmol/L (3-11); Aspartate Aminotrans (AST/SGOT 28 U/L (12-37); Bilirubin, Total 0.5 mg/dL (0.1-1.0); Blood Urea Nitrogen 25 mg/dL (8-24); Bun/Creatinine Ratio 25.5 (12.0-20.0); CO2, Blood 4 mmol/L (21-32); Calcium, Blood 9.3 mg/dL (8.5-10.1); Chloride, Blood 107 mmol/L (98-108); Creatinine, Blood 0.98 mg/dL (0.60-1.20); Globulin, Blood 4.1 g/dL (2.2-4.0); Glomerular Filtration Rate 85 (60-); Glucose, Blood 396 mg/dL (70-99); Potassium, Blood 4.2 mmol/L (3.5-5.5); Sodium, Blood 140 mmol/L (136-145)
[2024-02-29 18:09] LABS: Beta-hydroxybutyrate >138.0 mg/dL (0.2-2.8)
[2024-02-29] MEDS ORDERED: Ondansetron HCl 2 MG / ML 2ML Vial IV PRN (18:10)
[2024-02-29] MEDS ORDERED: Lactated Ringer's 1,000 ML IV SCH (18:10)
[2024-02-29] MEDS ORDERED: Metoclopramide HCl 5MG / ML 2ML Vial IV PRN (18:10)
[2024-02-29] MEDS ORDERED: Dextrose 50% 50 ML Syringe IV PRN (18:10)
[2024-02-29 18:11] LABS: Appearance, Urine Clear (Clear); Bilirubin, Urine Neg (Neg); Blood, Urine 2+ (Neg); Glucose Qualitative, Urine 4+ (Neg); Ketones, Urine 4+ (Neg); Leukocyte Esterase, Urine Neg (Neg); Nitrite, Urine Neg (Neg); Protein, Urine 2+ (Neg); Urobilinogen, Urine NORM (Normal)
[2024-02-29 18:13] LABS: Color, Urine Pale Yellow (P-Yellow)
[2024-02-29 18:17] LABS: Bacteria Not Seen /hpf; Hyaline Casts 0-2 /lpf (0-2); Red Blood Cells, Urine 0-2 /hpf (0-2); Squamous Epithelial Cells Rare /hpf (Few); White Blood Cells, Urine 0-2 /hpf (0-5)
[2024-02-29 19:38] LABS: PCO2 Venous 14.9 mmHg (38-42)
[2024-02-29 19:38] LABS: Source, Urine Foley catheter
[2024-02-29 19:39] LABS: Bicarbonate Venous 5.8 mmol/L (24.0-30.0)
[2024-02-29 19:43] LABS: Appearance, Urine Clear (Clear); Bilirubin, Urine Neg (Neg); Blood, Urine 2+ (Neg); Glucose Qualitative, Urine 4+ (Neg); Ketones, Urine 4+ (Neg); Leukocyte Esterase, Urine Neg (Neg); Nitrite, Urine Neg (Neg); Protein, Urine 1+ (Neg); Urobilinogen, Urine NORM (Normal)
--- NOTE | 2024-02-29 20:00 | NUR ---
ASSUMED CARE OF PT AT 1900. REPORT RECEIVED AT BEDSIDE. PT HAS JUST BEEN ADMITTED AT 1850 THIS EVENING. PT ABLE TO PARTICIPATE SOME WITH REPORT. PT DOES FREQUENTLY REQUEST WATER. PT ON INSULIN DRIP AT 6 UNITS PER HOUR. PT NOTED TO HAVE MOTTLING TO LOWER EXTREMITIES. HAS BLOOD ON HIS FOREHEAD FROM HIS FALL AT HOME. WILL REVIEW CHART AND PLAN OF CARE FOR THIS PT.
[2024-02-29 20:03] LABS: Color, Urine Pale Yellow (P-Yellow)
[2024-02-29 20:04] LABS: Red Blood Cells, Urine 0-2 /hpf (0-2); Squamous Epithelial Cells Rare /hpf (Few); White Blood Cells, Urine 0-2 /hpf (0-5)
[2024-02-29 20:05] LABS: Bacteria Mod /hpf; Granular Casts 0-2 /lpf (0); Hyaline Casts 0-2 /lpf (0-2); Mucus Light (0-Heavy)
[2024-02-29] MEDS ORDERED: LORazepam 2 MG/ML 1ML Injection IV PRN ×2 (20:15→20:20)
[2024-02-29] MEDS ORDERED: ChlordiazePOXIDE 25 MG Cap PO PRN ×2 (20:15→20:20)
[2024-02-29] MEDS ORDERED: Sodium Bicarb 8.4% Inj 150 MEQ in Dextrose 5% 1,000 ML IV SCH (20:25)
[2024-02-29 20:29] LABS: Bun/Creatinine Ratio 24.5 (12.0-20.0); Calcium, Blood 7.7 mg/dL (8.5-10.1); Creatinine, Blood 0.82 mg/dL (0.60-1.20); Potassium, Blood 3.5 mmol/L (3.5-5.5)
[2024-02-29 21:03] LABS: Influenza A, PCR NEGATIVE (NEGATIVE); Influenza B, PCR NEGATIVE (NEGATIVE); Resp Syncytial Virus, PCR NEGATIVE (NEGATIVE); SARS-Cov-2 (COVID-19) PCR, MMC NEGATIVE (NEGATIVE)
[2024-02-29] MEDS ORDERED: FUROSEMIDE20 MG PO (21:30)
[2024-03-01] VITALS (45 sets, daily range): BP systolic 90–137; BP diastolic 47–115
[2024-03-01 01:24] LABS: Bun/Creatinine Ratio 23.6 (12.0-20.0); Calcium, Blood 7.2 mg/dL (8.5-10.1); Creatinine, Blood 0.72 mg/dL (0.60-1.20); Potassium, Blood 3.8 mmol/L (3.5-5.5)
[2024-03-01 04:25] LABS: BASOPHILS ABSOLUTE AUTO 0.01 K/mm3 (0.00-0.23); BASOPHILS PERCENT AUTO 0 % (0-2); EOSINOPHILS PERCENT AUTO 0 % (0-6); Hematocrit 30.2 % (37.0-53.0); Hemoglobin 10.4 g/dL (13.5-17.5); IMMATURE GRAN ABSOLUTE AUTO 0.07 K/mm3 (0.00-0.10); IMMATURE GRAN PERCENT AUTO 1 % (0-1); LYMPHOCYTES ABSOLUTE AUTO 1.03 K/mm3 (0.84-5.20); LYMPHOCYTES PERCENT AUTO 12 % (21-46); MONOCYTES ABSOLUTE AUTO 0.78 K/mm3 (0.16-1.47); MONOCYTES PERCENT AUTO 9 % (4-13); Mean Corpuscular HGB 33.9 pg (26.0-34.0); Mean Corpuscular HGB Conc 34.4 g/dL (31.5-36.5); Mean Platelet Volume 8.7 fL (9.1-12.4); NEUTROPHILS ABSOLUTE AUTO 6.83 K/mm3 (1.96-9.15); NEUTROPHILS PERCENT AUTO 78 % (41-73); Platelet Count 176 K/mm3 (150-400); RDW Coefficient Variation 11.9 % (11.7-14.2); RDW Standard Deviation 42.4 fL (35.1-46.3); Red Blood Cell Count 3.07 M/mm3 (4.30-5.90); White Blood Cell Count 8.72 K/mm3 (4.00-11.30)
[2024-03-01 04:34] LABS: Magnesium, Blood 2.3 mg/dL (1.6-2.4)
[2024-03-01 04:35] LABS: Bun/Creatinine Ratio 23.1 (12.0-20.0); Calcium, Blood 7.2 mg/dL (8.5-10.1); Creatinine, Blood 0.69 mg/dL (0.60-1.20); Potassium, Blood 3.4 mmol/L (3.5-5.5)
[2024-03-01 04:39] LABS: Mean Corpuscular Volume 98 fL (80-100)
[2024-03-01] MEDS ORDERED: Potassium Chloride 40 MEQ in NS 250 ML IV ONE ×2 (05:00→15:15)
[2024-03-01] MEDS ORDERED: Pantoprazole Sodium 40 MG Tab PO SCH (06:00)
--- NOTE | 2024-03-01 07:13 | NUR ---
PT HAS HAD INCREASED CIWA THIS NIGHT. HAS REQUIRED 3 DOSES OF 2 MG ATIVAN FOR INCREASED AGITATION AND PULLING AT LINES. PT DID RECEIVE ONE DOSE OF LIBRIUM EARLIER IN EVENING. HE WAS ABLE TO, EARLY IN EVENING, STATE THAT IT HAD BEEN 2 DAYS SINCE HIS LAST DRINK OF ALCOHOL. DOES STATE HE DRINKS ONLY 1/2 BOTTLE OF WINE AND SEVERAL BEER PER DAY. PER HIS , PT DRINKS 1 1/2 BOTTLE OF WINE, AND 3 BEERS A DAY. CONTINUING WITH CIWA MONITORING. PT HAS HAD OVER 3 LITERS OF URINE OUT THIS SHIFT. REPORT GIVEN TO ALEXANDER BURTON.
[2024-03-01] MEDS ORDERED: Enoxaparin 40 MG/0.4 ML SYR SC SCH (09:00)
[2024-03-01] MEDS ORDERED: Clopidogrel Bisulfate 75 MG Tab PO SCH (09:00)
[2024-03-01] MEDS ORDERED: Thiamine HCl 100 MG in NS 50 ML IV SCH (09:00)
[2024-03-01] MEDS ORDERED: Folic Acid 1 MG in NS 50 ML IV SCH (09:00)
[2024-03-01 10:05] LABS: Magnesium, Blood 2.2 mg/dL (1.6-2.4)
[2024-03-01 10:11] LABS: Albumin, Blood 2.7 g/dL (3.4-5.0); Blood Urea Nitrogen 12 mg/dL (8-24); Bun/Creatinine Ratio 21.4 (12.0-20.0); Calcium, Blood 7.6 mg/dL (8.5-10.1); Chloride, Blood 111 mmol/L (98-108); Creatinine, Blood 0.56 mg/dL (0.60-1.20); Glomerular Filtration Rate 108 (60-); Glucose, Blood 227 mg/dL (70-99); Phosphorus, Blood 2.3 mg/dL (2.5-4.9); Potassium, Blood 5.3 mmol/L (3.5-5.5); Sodium, Blood 142 mmol/L (136-145)
[2024-03-01 10:12] LABS: Anion Gap 27 mmol/L (3-11); CO2, Blood 9 mmol/L (21-32)
[2024-03-01 11:45] LABS: Bun/Creatinine Ratio 18.3 (12.0-20.0); Calcium, Blood 7.8 mg/dL (8.5-10.1); Creatinine, Blood 0.6 mg/dL (0.60-1.20); Potassium, Blood 3.7 mmol/L (3.5-5.5)
[2024-03-01 12:36] LABS: Calcium, Blood 7.4 mg/dL (8.5-10.1); Creatinine, Blood 0.56 mg/dL (0.60-1.20); Potassium, Blood 3.3 mmol/L (3.5-5.5)
[2024-03-01] MEDS ORDERED: Potassium Phosphate Dibasic 30 MM in Dextrose 5% 500 ML IV ONE (12:50)
[2024-03-01 13:24] LABS: Bun/Creatinine Ratio 14.8 (12.0-20.0); Calcium, Blood 7.4 mg/dL (8.5-10.1); Creatinine, Blood 0.61 mg/dL (0.60-1.20); Potassium, Blood 3.2 mmol/L (3.5-5.5)
[2024-03-01 14:48] LABS: Bun/Creatinine Ratio 13.9 (12.0-20.0); Calcium, Blood 7.3 mg/dL (8.5-10.1); Creatinine, Blood 0.57 mg/dL (0.60-1.20); Potassium, Blood 3.1 mmol/L (3.5-5.5)
[2024-03-01 16:58] LABS: Bun/Creatinine Ratio 14.2 (12.0-20.0); Calcium, Blood 7.4 mg/dL (8.5-10.1); Creatinine, Blood 0.56 mg/dL (0.60-1.20); Potassium, Blood 3.2 mmol/L (3.5-5.5)
[2024-03-01 17:56] LABS: Bun/Creatinine Ratio 13.2 (12.0-20.0); Calcium, Blood 7.4 mg/dL (8.5-10.1); Creatinine, Blood 0.53 mg/dL (0.60-1.20); Potassium, Blood 3.2 mmol/L (3.5-5.5)
--- NOTE | 2024-03-01 18:12 | NUR ---
SUMMARY PT HAS BEEN DROWSY MOST OF THE DAY. WILL MUMBLE SOME WORDS AT TIMES BUT DIFFICULT TO UNDERSTAND AND KEEPS EYE'S CLOSED. DR. FARRIS HAS BEEN FOLLOWING LABS CLOSELY ALL DAY. INSULIN GTT AT 1 UNIT/HR PER DR. FARRIS D/T POTASSIUM LEVEL BEING LOW. D5 BICARB AT 200ML/HR. HAS GOTTEN KPHOS REPLACEMENT AND KCL REPLACEMENT.
[2024-03-01 18:57] LABS: Bun/Creatinine Ratio 13.5 (12.0-20.0); Calcium, Blood 7.3 mg/dL (8.5-10.1); Creatinine, Blood 0.52 mg/dL (0.60-1.20); Potassium, Blood 3.3 mmol/L (3.5-5.5)
--- NOTE | 2024-03-01 20:00 | NUR ---
ASSUMED CARE OF PT AT 1900. REPORT RECEIVED AT BEDSIDE. PT PRESENTS IN BED. SOMEWHAT RESTLESS AND COFUSED. NO S/S DISTRESS TO NOTE. PT ON INSULIN DRIP AT 1 UNIT PER HOUR. Q 1 HOUR CHEMESTRIES TO BE DONE TO CLOSELY MONITOR POTASSIUM LEVELS. DR FARRIS REQUESTS TO HAVE ALL CARE QUESTIONS AND ORDERS TO GO THROUGH HIM. WILL MAKE THIS HAPPEN. WILL REVIEW CHART AND PLAN OF CARE FOR THIS PT.
[2024-03-01 20:02] LABS: Bun/Creatinine Ratio 12.3 (12.0-20.0); Calcium, Blood 7.2 mg/dL (8.5-10.1); Creatinine, Blood 0.49 mg/dL (0.60-1.20); Potassium, Blood 3.4 mmol/L (3.5-5.5)
[2024-03-01 21:01] LABS: Bun/Creatinine Ratio 11.7 (12.0-20.0); Calcium, Blood 7.2 mg/dL (8.5-10.1); Creatinine, Blood 0.52 mg/dL (0.60-1.20); Potassium, Blood 3.3 mmol/L (3.5-5.5)
[2024-03-01 21:55] LABS: Bun/Creatinine Ratio 8.8 (12.0-20.0); Calcium, Blood 7.3 mg/dL (8.5-10.1); Creatinine, Blood 0.57 mg/dL (0.60-1.20); Potassium, Blood 3.3 mmol/L (3.5-5.5)
[2024-03-01] MEDS ORDERED: Potassium Chloride 40 MEQ in NS 250 ML IV SCH (22:00)
[2024-03-01 23:14] LABS: Bun/Creatinine Ratio 11.7 (12.0-20.0); Calcium, Blood 7.2 mg/dL (8.5-10.1); Creatinine, Blood 0.52 mg/dL (0.60-1.20); Potassium, Blood 3.1 mmol/L (3.5-5.5)
[2024-03-01] MEDS ORDERED: D5W-1/2NS 1,000 ML IV SCH (23:30)
[2024-03-02] VITALS (23 sets, daily range): BP systolic 98–144; BP diastolic 39–93
[2024-03-02 00:02] LABS: Bun/Creatinine Ratio 9.3 (12.0-20.0); Calcium, Blood 7.4 mg/dL (8.5-10.1); Creatinine, Blood 0.54 mg/dL (0.60-1.20); Potassium, Blood 3.2 mmol/L (3.5-5.5)
[2024-03-02 00:53] LABS: Bun/Creatinine Ratio 9.2 (12.0-20.0); Calcium, Blood 7.3 mg/dL (8.5-10.1); Creatinine, Blood 0.54 mg/dL (0.60-1.20); Potassium, Blood 3.1 mmol/L (3.5-5.5)
[2024-03-02] MEDS ORDERED: Potassium Chloride 40 MEQ in NS 250 ML IV ONE (01:50)
[2024-03-02 02:29] LABS: Bun/Creatinine Ratio 10.3 (12.0-20.0); Calcium, Blood 7.2 mg/dL (8.5-10.1); Creatinine, Blood 0.48 mg/dL (0.60-1.20); Potassium, Blood 3.1 mmol/L (3.5-5.5)
[2024-03-02 03:13] LABS: Bun/Creatinine Ratio 9.9 (12.0-20.0); Calcium, Blood 7.1 mg/dL (8.5-10.1); Creatinine, Blood 0.5 mg/dL (0.60-1.20); Potassium, Blood 4.3 mmol/L (3.5-5.5)
--- NOTE | 2024-03-02 03:51 | NUR ---
PT COMPLETES POTASSIUM VIKY AT 10 MEQ PER HOUR. HAVE SECOND INFUSION OF 40 MEQ POTASSIUM RUNNING AT 5 MEQ PER HOUR. AT THE COMPLETION OF FIRST HAVE INCREASED DRIP FROM 5 MEQ PER HOUR TO 10 UNTIL COMPLETION. PT REMAINS CONFUSED. HAS NOTEABLE TREMORS. HAS NOT BEEN PULLING AT LINES FOR THE MOST PART, AND HAS NOT MADE ANY ATTEMPTS TO GET OUT OF BED WITHOUT ASSIST. CONTINUES ON INSULIN DRIP AT 1 UNIT PER HOUR. D5 1/2 NS AT 200 ML PER HOUR. LABS HAVE BEEN DONE Q 1 HOUR THROUGHOUT THE NIGHT FOR CHEM PANEL. FULL AM LABS DRAWN. PENDING RESULTS.
[2024-03-02 03:53] LABS: Hematocrit 31.9 % (37.0-53.0); Hemoglobin 11.5 g/dL (13.5-17.5); Mean Corpuscular HGB Conc 36.1 g/dL (31.5-36.5); Mean Corpuscular Volume 94 fL (80-100); Mean Platelet Volume 8.5 fL (9.1-12.4); Platelet Count 158 K/mm3 (150-400); RDW Coefficient Variation 11.7 % (11.7-14.2); RDW Standard Deviation 40.1 fL (35.1-46.3); Red Blood Cell Count 3.38 M/mm3 (4.30-5.90); White Blood Cell Count 6.76 K/mm3 (4.00-11.30)
[2024-03-02 04:16] LABS: Albumin, Blood 2.3 g/dL (3.4-5.0); Anion Gap 14 mmol/L (3-11); Blood Urea Nitrogen 4 mg/dL (8-24); Bun/Creatinine Ratio 7.6 (12.0-20.0); CO2, Blood 24 mmol/L (21-32); Calcium, Blood 7.3 mg/dL (8.5-10.1); Chloride, Blood 110 mmol/L (98-108); Creatinine, Blood 0.52 mg/dL (0.60-1.20); Glomerular Filtration Rate 110 (60-); Glucose, Blood 178 mg/dL (70-99); Phosphorus, Blood 1.1 mg/dL (2.5-4.9); Potassium, Blood 3.5 mmol/L (3.5-5.5); Sodium, Blood 144 mmol/L (136-145)
[2024-03-02] MEDS ORDERED: Potassium Phosphate Dibasic 30 MM in Dextrose 5% 500 ML IV ONE (05:45)
--- NOTE | 2024-03-02 06:25 | NUR ---
LABS CALLED TO DR FARRIS. ORDERS RECEIVED. PT'S POTASSIUM HAS BEEN SLOWLY IMPROVING WITH SUPPLEMENT IV INFUSIONS. BLOOD GLUCOSE LEVELS HAVE REMAINED STEADY. INSULIN CONTINUES AT 1 UNIT PER HOUR WHICH HAS BEEN UNCHANGED SINCE BEGINNING OF SHIFT. WILL CONTINUE TO MONITOR PT, AND WILL REPORT OFF TO ONCOMING RN.
[2024-03-02 06:41] LABS: Bun/Creatinine Ratio 7.6 (12.0-20.0); Calcium, Blood 7.3 mg/dL (8.5-10.1); Creatinine, Blood 0.53 mg/dL (0.60-1.20); Potassium, Blood 3.4 mmol/L (3.5-5.5)
[2024-03-02] MEDS ORDERED: NS 250 ML IV PRN (07:45)
[2024-03-02] MEDS ORDERED: CALCIUM GLUC IN NACL, ISO-OSM 50 ML IV ONE (07:45)
[2024-03-02 07:47] LABS: Bun/Creatinine Ratio 8.3 (12.0-20.0); Calcium, Blood 7.4 mg/dL (8.5-10.1); Creatinine, Blood 0.48 mg/dL (0.60-1.20); Potassium, Blood 3.6 mmol/L (3.5-5.5)
--- NOTE | 2024-03-02 08:58 | NUR ---
ASSUMED CARE BEDSIDE REPORT FROM ROYAL MUNOZ AT 0700. PT RESTING IN BED. RESPONSES TO NAME, FOLLOWS SIMPLE COMMANDS. GARBLED INCOHERANT SPEECH. DOES NOT ANSWER QUESTIONS APPROPRIATELY. OCCASIONALLY PULLING AT LINES AND TUBES. REDIRECTABLE AT THIS TIME. SR, RATE 90'S. BP STABLE. PT HAS DISCOLORATION TO KNEES. LUNGS CLEAR, ON RA. AIRWAY PATENT. NPO D/T MENTAL STATUS AT THIS TIME. ABD FLAT, SOFT, NON TENDER. BT X 4. CAST PATENT, DRAINING CLEAR YELLOW URINE TO GRAVITY. INSULIN GTT, D5 1/2NS GTT INFUSING. KPHOS REPLACEMENT INFUSING. DR FARRIS ROUNDED. SO UPDATED ON PHONE. WILL CONTINUE PLAN OF CARE.
[2024-03-02] MEDS ORDERED: Pantoprazole Sodium 40 MG Injection IV SCH (09:00)
[2024-03-02 09:48] LABS: Bun/Creatinine Ratio 9.6 (12.0-20.0); Calcium, Blood 8.1 mg/dL (8.5-10.1); Creatinine, Blood 0.52 mg/dL (0.60-1.20); Potassium, Blood 3.9 mmol/L (3.5-5.5)
[2024-03-02 11:48] LABS: Calcium, Blood 7.7 mg/dL (8.5-10.1); Creatinine, Blood 0.45 mg/dL (0.60-1.20)
[2024-03-02 13:54] LABS: Bun/Creatinine Ratio 8.2 (12.0-20.0); Calcium, Blood 7.7 mg/dL (8.5-10.1); Creatinine, Blood 0.49 mg/dL (0.60-1.20); Potassium, Blood 3.7 mmol/L (3.5-5.5)
--- NOTE | 2024-03-02 17:50 | NUR ---
SHIFT SUMMARY NO ACUTE CHANGES. REMAINS IN INSULIN AND D5 1/2 NS GTT. ORIENTED TO SELF ONLY. DOES NOT ANSWER QUESTIONS APPROPRIATELY. FOLLOWS SIMPLE COMMANDS. ERICKA. CIWA 8-13 THIS SHIFT, MEDICATED c ATIVAN TWICE. REDIRECTABLE. SR, RATE 90'S. BP STABLE. NOT SAFE FOR PO AT THIS TIME. CAST PATENT, DRAINED 2500 ML CLEAR YELLOW URINE TO GRAVITY. WILL CONTINUE PLAN OF CARE UNTIL REPORT TO ONCOMING NURSE.
[2024-03-02 19:53] LABS: Albumin, Blood 2.2 g/dL (3.4-5.0); Albumin/Globulin Ratio 0.6 (0.8-1.8); Bilirubin, Total 0.4 mg/dL (0.1-1.0); Bun/Creatinine Ratio 8.6 (12.0-20.0); Calcium, Blood 7.7 mg/dL (8.5-10.1); Creatinine, Blood 0.47 mg/dL (0.60-1.20); Globulin, Blood 3.6 g/dL (2.2-4.0); Potassium, Blood 3.6 mmol/L (3.5-5.5); Total Protein, Blood 5.8 g/dL (6.4-8.2)
--- NOTE | 2024-03-02 20:00 | NUR ---
ASSUMED CARE OF PT AT 1900. REPORT RECEIVED AT BEDSIDE. PT PRESENTS IN BED. AWAKE BUT DOES NOT FOLLOW COMMANDS OR ACKNOWLEDGES STAFF. NO S/S DISTRESS. WILL CALL DR FARRIS WITH [facility] RESULTS. PT MOVES FREQUENTLY IN BED. WITH REPOSITIONING, PT MOVES ABOUT AND DOES NOT STAY IN POSITION. PT RESISTS CARE. WILL REVIEW CHART AND PLAN OF CARE FOR THIS PT.
[2024-03-03] VITALS (24 sets, daily range): BP systolic 107–157; BP diastolic 65–92
[2024-03-03 00:39] LABS: Bun/Creatinine Ratio 8.5 (12.0-20.0); Calcium, Blood 7.7 mg/dL (8.5-10.1); Creatinine, Blood 0.47 mg/dL (0.60-1.20); Potassium, Blood 3.4 mmol/L (3.5-5.5)
[2024-03-03] MEDS ORDERED: Potassium Chloride 40 MEQ in NS 250 ML IV ONE (01:20)
[2024-03-03 04:55] LABS: BASOPHILS ABSOLUTE AUTO 0.03 K/mm3 (0.00-0.23); BASOPHILS PERCENT AUTO 1 % (0-2); EOSINOPHILS ABSOLUTE AUTO 0.04 K/mm3 (0.00-0.68); EOSINOPHILS PERCENT AUTO 1 % (0-6); Hematocrit 30.8 % (37.0-53.0); Hemoglobin 11.2 g/dL (13.5-17.5); IMMATURE GRAN ABSOLUTE AUTO 0.02 K/mm3 (0.00-0.10); IMMATURE GRAN PERCENT AUTO 0 % (0-1); LYMPHOCYTES ABSOLUTE AUTO 0.78 K/mm3 (0.84-5.20); LYMPHOCYTES PERCENT AUTO 17 % (21-46); MONOCYTES ABSOLUTE AUTO 0.55 K/mm3 (0.16-1.47); MONOCYTES PERCENT AUTO 12 % (4-13); Mean Corpuscular HGB 33.6 pg (26.0-34.0); Mean Corpuscular HGB Conc 36.4 g/dL (31.5-36.5); Mean Corpuscular Volume 93 fL (80-100); NEUTROPHILS ABSOLUTE AUTO 3.19 K/mm3 (1.96-9.15); NEUTROPHILS PERCENT AUTO 69 % (41-73); RDW Coefficient Variation 11.3 % (11.7-14.2); RDW Standard Deviation 38.4 fL (35.1-46.3); Red Blood Cell Count 3.33 M/mm3 (4.30-5.90); White Blood Cell Count 4.61 K/mm3 (4.00-11.30)
[2024-03-03 04:58] LABS: Mean Platelet Volume 8.9 fL (9.1-12.4); Platelet Count 165 K/mm3 (150-400)
--- NOTE | 2024-03-03 06:13 | NUR ---
PT NOTED TO OCCASSIONALLY PULL AT LINES AND TUBES. PT IS REDIRECTABLE FOR SHORT PERIODS. FULL BEDBATH DONE. PT RESISTS CARE AND DOES NOT FOLLOW DIRECTIONS. DURING NIGHT DID PLACE PT ON 1 LITER PER MINUTE OXYGEN PER NASAL CANNULA WHILE PT WAS ASLEEP TO MAINTAIN SATURATION > 90 PERCENT. HAVE DONE 40 MEQ POTTASSIUM REPLACEMENT DURING NIGHT. WILL CONTINUE TO MONITOR PT, AND WILL REPORT OFF TO ONCOMING RN.
[2024-03-03 06:20] LABS: Albumin/Globulin Ratio 0.6 (0.8-1.8); Bilirubin, Total 0.5 mg/dL (0.1-1.0); Bun/Creatinine Ratio 10.1 (12.0-20.0); Calcium, Blood 7.5 mg/dL (8.5-10.1); Creatinine, Blood 0.4 mg/dL (0.60-1.20); Globulin, Blood 3.5 g/dL (2.2-4.0); Magnesium, Blood 1.7 mg/dL (1.6-2.4); Phosphorus, Blood 2.2 mg/dL (2.5-4.9); Potassium, Blood 3.5 mmol/L (3.5-5.5); Total Protein, Blood 5.5 g/dL (6.4-8.2)
--- NOTE | 2024-03-03 07:00 | NUR ---
ASSUMPTION OF CARE BEDSIDE REPORT RECEIVED FROM ROYAL MUNOZ. PT RECEIVING INSULIN 1 UNIT/HR AND D5 1/2NS 250ML/HR. HE IS RESTING, MOVES ALL EXTREMITIES AND SAYS WORDS WITH NOXIOUS STIMULI. HE IS ON RA WITH SPO2 >95%. SINUS ON MONITOR WITH RATE IN 80S, BP STABLE WITH MAP >65. CAST PATENT AND DRAINING TO GRAVITY. BED IN LOW POSITION.
[2024-03-03] MEDS ORDERED: Potassium Phosphate Dibasic 15 MM in Dextrose 5% 250 ML IV ONE (07:15)
[2024-03-03 08:45] LABS: Bun/Creatinine Ratio 8.2 (12.0-20.0); Calcium, Blood 7.8 mg/dL (8.5-10.1); Creatinine, Blood 0.49 mg/dL (0.60-1.20); Potassium, Blood 3.6 mmol/L (3.5-5.5)
[2024-03-03] MEDS ORDERED: D5W-1/2NS 1,000 ML IV SCH (10:55)
[2024-03-03] MEDS ORDERED: CALCIUM GLUC IN NACL, ISO-OSM 50 ML IV ONE (12:05)
[2024-03-03 13:00] LABS: Bun/Creatinine Ratio 9.9 (12.0-20.0); Calcium, Blood 7.9 mg/dL (8.5-10.1); Creatinine, Blood 0.4 mg/dL (0.60-1.20); Potassium, Blood 3.1 mmol/L (3.5-5.5)
[2024-03-03] MEDS ORDERED: Potassium Chloride 40 MEQ in NS 250 ML IV STA ×2 (13:42→20:56)
[2024-03-03 15:47] LABS: Base Excess Venous 3.8 mmol/L; Bicarbonate Venous 27.2 mmol/L (24.0-30.0); PCO2 Venous 37.2 mmHg (38-42); pH Blood Venous 7.48 (7.34-7.37)
[2024-03-03 16:13] LABS: Bun/Creatinine Ratio 5.6 (12.0-20.0); Calcium, Blood 8.1 mg/dL (8.5-10.1); Creatinine, Blood 0.54 mg/dL (0.60-1.20); Potassium, Blood 3.3 mmol/L (3.5-5.5)
--- NOTE | 2024-03-03 18:14 | NUR ---
SHIFT SUMMARY PT RECEIVING INSULIN 1 UNIT/HR AND D5 1/2NS 150ML/HR. HE HAS BEEN SOMNOLENT MOST OF THE DAY. THIS EVENING HE WAKES EASIER TO VERBAL STIMULI. HE MAKES SHORT EYE CONTACT AND ANSWERS QUESTIONS WITH 1-3 WORD PHRASES BEFORE FALLING BACK ASLEEP. PT UNABLE TO REMAIN ALERT ENOUGH TO SAFELY HAVE PO INTAKE. HE IS 2L NC AND TOLERATING WELL WITH SPO2 >92%. BOWEL TONES HYPOACTIVE, ABDOMEN SOFT. CAST PATENT AND DRAINING TO GRAVITY. PT HAD 2850ML OUTPUT THIS SHIFT. PT'S AT BEDSIDE THIS AFTERNOON AND UPDATED BY STAFF AND HOSPITALIST. BED IN LOW POSITION, CALL LIGHT WITHIN REACH.
[2024-03-03 20:47] LABS: Bun/Creatinine Ratio 6.7 (12.0-20.0); Calcium, Blood 6.6 mg/dL (8.5-10.1); Creatinine, Blood 0.45 mg/dL (0.60-1.20); Potassium, Blood 2.7 mmol/L (3.5-5.5)
[2024-03-03] MEDS ORDERED: Acetaminophen 325 MG TABLET PO PRN (20:50)
--- NOTE | 2024-03-03 23:01 | NUR ---
PATIENT AWAKENING TO NAME BEING CALLED, SLIGHTLY RESTLESS, BUT ANSWERING QUESTIONS. PATIENT COMPLAINING OF HEADACHE, BUT NO NAUSEA. DENIES HALLUCINATIONS. KCL REPLACEMENT STARTED FOR K OF 2.7. INSULIN DRIP TITRATED NEEDED.
--- NOTE | 2024-03-03 23:51 | NUR ---
PATIENT VERY RESTLESS, PULLING AT CAST, EKG LEADS, ROLLING SIDE TO SIDE IN BED. HANDS VERY TREMULOUS WHEN REACHING FOR CUP OF WATER, BUT ABLE TO SWALLOW PILLS WITH APPLESAUCE. MEDICATED 2 HOURS LATER WITH ATIVEN 2 NG. AWAITING RESPONSE. BLOOD SUGARS STABLE INSULIN DRIP REMAINS AT 2.5 UNITS.;
[2024-03-04] VITALS (25 sets, daily range): BP systolic 104–151; BP diastolic 63–85
[2024-03-04] MEDS ORDERED: Potassium Chl 20MEQ/Water100ML 100 ML IV ONE ×2 (01:00→13:50)
[2024-03-04 04:18] LABS: BASOPHILS ABSOLUTE AUTO 0.02 K/mm3 (0.00-0.23); BASOPHILS PERCENT AUTO 1 % (0-2); EOSINOPHILS ABSOLUTE AUTO 0.08 K/mm3 (0.00-0.68); EOSINOPHILS PERCENT AUTO 2 % (0-6); Hemoglobin 11.1 g/dL (13.5-17.5); IMMATURE GRAN ABSOLUTE AUTO 0.01 K/mm3 (0.00-0.10); IMMATURE GRAN PERCENT AUTO 0 % (0-1); LYMPHOCYTES ABSOLUTE AUTO 0.75 K/mm3 (0.84-5.20); LYMPHOCYTES PERCENT AUTO 19 % (21-46); MONOCYTES ABSOLUTE AUTO 0.67 K/mm3 (0.16-1.47); MONOCYTES PERCENT AUTO 17 % (4-13); Mean Corpuscular HGB 33.5 pg (26.0-34.0); Mean Corpuscular HGB Conc 35.8 g/dL (31.5-36.5); Mean Corpuscular Volume 94 fL (80-100); Mean Platelet Volume 8.3 fL (9.1-12.4); NEUTROPHILS ABSOLUTE AUTO 2.36 K/mm3 (1.96-9.15); NEUTROPHILS PERCENT AUTO 61 % (41-73); Platelet Count 122 K/mm3 (150-400); RDW Coefficient Variation 11.5 % (11.7-14.2); RDW Standard Deviation 39.3 fL (35.1-46.3); Red Blood Cell Count 3.31 M/mm3 (4.30-5.90); White Blood Cell Count 3.89 K/mm3 (4.00-11.30)
--- NOTE | 2024-03-04 04:29 | NUR ---
PATIENT STILL TREMULOUS, BUT STILL AROUSING TO NAME. HEADACHE STILL PRESENT, BUT REFUSING TO TAKE TYLENOL. MEDICATED WITH ATIVAN IV AND SLOWLY PATIENT FALLING BACK TO SLEEP.
[2024-03-04 04:33] LABS: Albumin, Blood 1.9 g/dL (3.4-5.0); Anion Gap 12 mmol/L (3-11); Blood Urea Nitrogen 4 mg/dL (8-24); Bun/Creatinine Ratio 9.1 (12.0-20.0); CO2, Blood 21 mmol/L (21-32); Calcium, Blood 7.9 mg/dL (8.5-10.1); Chloride, Blood 110 mmol/L (98-108); Creatinine, Blood 0.44 mg/dL (0.60-1.20); Glomerular Filtration Rate 116 (60-); Glucose, Blood 197 mg/dL (70-99); Phosphorus, Blood 2.5 mg/dL (2.5-4.9); Potassium, Blood 3.5 mmol/L (3.5-5.5); Sodium, Blood 139 mmol/L (136-145)
--- NOTE | 2024-03-04 07:45 | NUR ---
ASSUMED CARE BEDSIDE REPORT FROM ABIDA MUNOZ AT 0700. PT RESTING IN BED. WAKES c VERBAL STIMULI. ORIENTED TO SELF, PLACE ONLY. FOLLOWS SIMPLE COMMANDS. MAEW. RETURNS TO SLEEP WHEN UNDISTURBED. DENIES JOYA, N/V, HALLUCINATIONS. LUNGS DIM, ON 2L VIA NC. SR, RATE 80-90'S. BP STABLE. INSULIN GTT AND D5 1/2 NS INFUSING. CAST PATENT, DRAINING CLEAR YELLOW URINE TO GRAVITY. WILL CONTINUE PLAN OF CARE.
[2024-03-04] MEDS ORDERED: [UNRECOGNIZED DRUG - MIXTURE] IV SCH (12:00)
[2024-03-04 12:04] LABS: International Normalized Ratio 1.18; Prothrombin Time Results 12.5 Sec (9.7-11.5)
[2024-03-04 12:11] LABS: Albumin, Blood 1.9 g/dL (3.4-5.0); Albumin/Globulin Ratio 0.6 (0.8-1.8); Bilirubin, Total 0.4 mg/dL (0.1-1.0); Bun/Creatinine Ratio 8.2 (12.0-20.0); Creatinine, Blood 0.49 mg/dL (0.60-1.20); Globulin, Blood 3.4 g/dL (2.2-4.0); Potassium, Blood 3.1 mmol/L (3.5-5.5); Total Protein, Blood 5.3 g/dL (6.4-8.2)
[2024-03-04] MEDS ORDERED: Insulin Glargine-Yfgn 100 Unit/mL 3 ML SYR SC ONE (13:45)
[2024-03-04] MEDS ORDERED: NS KCl 20mEq 1,000 ML IV SCH (17:30)
--- NOTE | 2024-03-04 17:44 | NUR ---
SHIFT SUMMARY PT AWAKES c REPETITIVE VERBAL AND PHYSICAL STIMULI. WHILE SO AT BEDSIDE, ELEVATED HOB AND PT WOULD ANSWER YES NO QUESTIONS APPROPRIATE. FOLLOWS SIMPLE COMMANDS. ABLE TO DRINK ENSURE c ASSISTANCE. INSULIN GTT OFF, IVF CHANGED TO NS c KCL. KCL REPLACED. SR, RATE 80'S. BP STABLE. OCCASIONALLY DESATS, RESOLVES WHEN PT WAKES TO VERBAL STIMULI, 3L VIA NC. LUNGS DIM IN BASES. CAST PATENT, DRAINED 1950 ML CLEAR YELLOW URINE TO GRAVITY. ONE INCONTINENT BM THIS SHIFT. ATTENDS IN PLACE, BEDBATH COMPLETE. SO UPDATED AT BEDSIDE. WILL CONTINUE PLAN OF CARE UNTIL REPORT TO ONCOMING NURSE.
[2024-03-04] MEDS ORDERED: Insulin Human Lispro 100 Units/ML 3ML Syringe SC SCH ×2 (18:00→21:00)
[2024-03-04] MEDS ORDERED: Insulin Glargine-Yfgn 100 Unit/mL 3 ML SYR SC SCH (21:00)
--- NOTE | 2024-03-04 22:33 | NUR ---
ASSUMPTION OF CARE PT LYING IN BED DRIFTING IN AND OUT OF SLEEP. PT SISTERS, ARIS AND PIPE, ARE IN THE ROOM. PT AWAKENS TO VOICE AND FOLLOWS SIMPLE COMMANDS- ORIENTED TO SELF AND PERSON. TEMP 98.0. HR SINUS RHYTHM IN THE 90S. BP STABLE 136/76. RESPIRATION UNLABORED, WITH CLEAR LUNGS SOUNDS. SAT 95% ON RA. ABDOMEN SOFT WITH ACTIVE BOWEL SOUNDS. PT DENIES NAUSEA/VOMITING. CAST DRAINING TO GRAVITY. NS WITH 20MEQ K INFUSING AT 150ML/HR. TKO NS INFUSING. PATIENT DENIES PAIN OR ANXIETY.
[2024-03-05] VITALS (19 sets, daily range): BP systolic 124–166; BP diastolic 57–87
[2024-03-05 06:10] LABS: BASOPHILS ABSOLUTE AUTO 0.02 K/mm3 (0.00-0.23); BASOPHILS PERCENT AUTO 1 % (0-2); EOSINOPHILS ABSOLUTE AUTO 0.07 K/mm3 (0.00-0.68); EOSINOPHILS PERCENT AUTO 2 % (0-6); Hematocrit 30.3 % (37.0-53.0); Hemoglobin 10.6 g/dL (13.5-17.5); IMMATURE GRAN ABSOLUTE AUTO 0.01 K/mm3 (0.00-0.10); IMMATURE GRAN PERCENT AUTO 0 % (0-1); LYMPHOCYTES ABSOLUTE AUTO 0.71 K/mm3 (0.84-5.20); LYMPHOCYTES PERCENT AUTO 18 % (21-46); MONOCYTES ABSOLUTE AUTO 0.68 K/mm3 (0.16-1.47); MONOCYTES PERCENT AUTO 17 % (4-13); Mean Corpuscular HGB 33.7 pg (26.0-34.0); Mean Corpuscular Volume 96 fL (80-100); Mean Platelet Volume 8.7 fL (9.1-12.4); NEUTROPHILS ABSOLUTE AUTO 2.53 K/mm3 (1.96-9.15); NEUTROPHILS PERCENT AUTO 63 % (41-73); Platelet Count 122 K/mm3 (150-400); RDW Coefficient Variation 11.7 % (11.7-14.2); RDW Standard Deviation 40.9 fL (35.1-46.3); Red Blood Cell Count 3.15 M/mm3 (4.30-5.90); White Blood Cell Count 4.02 K/mm3 (4.00-11.30)
[2024-03-05 06:46] LABS: Albumin, Blood 1.8 g/dL (3.4-5.0); Albumin/Globulin Ratio 0.5 (0.8-1.8); Bilirubin, Total 0.5 mg/dL (0.1-1.0); Bun/Creatinine Ratio 13.8 (12.0-20.0); Creatinine, Blood 0.51 mg/dL (0.60-1.20); Globulin, Blood 3.5 g/dL (2.2-4.0); Potassium, Blood 4.2 mmol/L (3.5-5.5); Total Protein, Blood 5.3 g/dL (6.4-8.2)
--- NOTE | 2024-03-05 06:53 | NUR ---
SHIFT SUMMARY PT LYING IN BED SLEEPING. PT AWAKES TO VOICE AND FOLLOWS BASIC COMMANDS BUT REMAINS ORIENTED TO SELF AND PERSONS ONLY. PT BECAME RESTLESS DURING SHIFT AND ONE DOSE OF ATIVAN 1MG WAS GIVEN, WHICH DECREASED RESTLESSNESS. HR SINUS RHYTHM IN 90S AND BP STABLE. RESPIRATIONS ELEVATED IN THE 20S BUT NON LABORED. ABDOMEN SOFT AND NON TENDER WITH ACTIVE BS THROUGHOUT. CAST FOR RETENTION DRAINING TO GRAVITY. NS WITH 20MEQ KCL INFUSING AT 150ML/HR. NS INFUSING A TKO LINE. POWERGLIDE REMOVED. RIGHT AC AND FOREARM IN PLACE AND DRAWING/FLUSHING. PT SISTERS ARIS AND PIPE WILL BE STOPPING BY TODAY. REPORT GIVEN TO ONCOMING NURSE.
[2024-03-05] MEDS ORDERED: Insulin Glargine-Yfgn 100 Unit/mL 3 ML SYR SC ONE (08:25)
--- NOTE | 2024-03-05 09:49 | NUR ---
ASSUMPTION OF CARE: PT ASLEEP IN ROOM, ROUSABLE AND CONFUSED BUT MORE RESPONSIVE THAN REPORTED FROM LAST SHIFT. PT ON ROOM AIR, 02 SATS >90%. LUNG SOUNDS CLEAR THROUGHOUT. NORMAL SINUS ON IN CLASSROOM TUTOR, MAP>65, EDEMA NOTED TO BOTH HANDS. PTS WEDDING RING WAS REMOVED DUE TO SWELLING. RING WAS PLACED IN A LABELED SPECIMEN CONTAINER AND PUT IN THE LOCK BOX. ABDOMEN SOFT AND NONTENDER, BOWEL TONES PRESENT. CAST CATHETER IN PLACE, PT COMPLAINED OF URGENCY, CATHETER WAS KINKED. AFTER TUBING WAS READJUSTED IT WAS DRAINING TO GRAVITY, URINE YELLOW AND CLEAR OF SEDIMENT. PT MOVING EXTREMITIES PURPOSEFULLY, BUT LACKING SOME COORDINATION AND STRENGTH, IMPROVED THROUGHOUT ASSESSMENT. SKIN WAS PALE, DRY, WARM, AND INTACT. HE HAS ONE SCAB TO HIS RIGHT SIDE OF HIS FOREHEAD. PULSES WERE STRONG AND REGULAR IN ALL EXTREMITIES. PT HAS 2 PERIPHERAL IVS IN HIS RIGHT ARM, CURRENTLY INFUSING NORMAL SALINE WITH 20 mEq KCL @ 150ML/HR AND NORMAL SALINE AT 10ML/HR. PT WAS ABLE TO SIT UP AND EAT 60% OF BREAKFAST. MENTATION IMPROVING THROUGHOUT MORNING.
[2024-03-05] MEDS ORDERED: Sennosides 8.6 MG Tab PO SCH (12:35)
[2024-03-05 14:39] LABS: Albumin, Blood 1.9 g/dL (3.4-5.0); Albumin/Globulin Ratio 0.5 (0.8-1.8); Beta-hydroxybutyrate 30.8 mg/dL (0.2-2.8); Bilirubin, Total 0.5 mg/dL (0.1-1.0); Bun/Creatinine Ratio 16.5 (12.0-20.0); Calcium, Blood 8.4 mg/dL (8.5-10.1); Creatinine, Blood 0.55 mg/dL (0.60-1.20); Globulin, Blood 3.9 g/dL (2.2-4.0); Magnesium, Blood 1.9 mg/dL (1.6-2.4); Potassium, Blood 4.5 mmol/L (3.5-5.5); Total Protein, Blood 5.8 g/dL (6.4-8.2)
[2024-03-05] MEDS ORDERED: NS 1,000 ML IV SCH ×3 (15:05→16:40)
[2024-03-05] MEDS ORDERED: Insulin Human Regular 100 UNIT in NS 100 ML IV SCH (15:05)
[2024-03-05] MEDS ORDERED: NS 1,000 ML IV ONE (15:52)
[2024-03-05] MEDS ORDERED: D5W-1/2NS 1,000 ML IV SCH (18:00)
[2024-03-05 18:03] LABS: Calcium, Blood 8.8 mg/dL (8.5-10.1); Creatinine, Blood 0.47 mg/dL (0.60-1.20); Potassium, Blood 3.6 mmol/L (3.5-5.5)
--- NOTE | 2024-03-05 18:17 | NUR ---
SHIFT SUMMARY: PT HAS BEEN UP IN THE CHAIR FOR MOST OF THE DAY AND IS NOW IN BED RESTING. HE HAS BECOME MORE PHYSICALLY AGITATED AND HAS INCREASED CONFUSION THIS EVENING. HE IS STILL ORIENTED TO SELF AND OTHERS. PATIENT HAS 2 PERIPHERAL IVS ON THE RIGHT ARM AND NOW HAS A POWERGLIDE ON THE LEFT. HE HAS D5 1/2 NS RUNNING AT 150ML/HR AND INSULIN AT 4UNITS/HR. NO CAST CATHETER, USES URINAL. LUNGS ARE CLEAR, BREATHING UNLABORED, SPO2 >90%. PERIPHERAL PULSES STRONG AND REGULAR, SINUS TACH ON DYE ROOM HELPER, MAP >65. ABDOMEN SOFT AND NONTENDER, PT HAS NOT HAD A BM DURING THIS SHIFT, HE HAS NO COMPLAINT OF PAIN OR DISCOMFORT. SWELLING IN HANDS HAS IMPROVED, STILL MILDLY PRESENT.
--- NOTE | 2024-03-05 19:30 | NUR ---
ASSUMPTION OF CARE PT LYING IN BED. PT AWAKES TO VOICE AND FOLLOWS SIMPLE COMMANDS BUT IS ONLY ORIENTED TO SELF AND PERSON. HR STABLE IN 90S AND NSR. BP STABLE. PT DENIES CHEST PAIN. RESPIRATIONS REGULAR AND WITHOUT EXTRA EFFORT. INSULIN INFUSING AT 4 UNITS/HR AND D5 1/2NS AT 150ML/HR, WITH Q 1HR POC GLUCOSE CHECKS. PT SQUIRMS AND PULLS AT LINES OCCASIONALLY, WITH REDIRECTION PARTIALLY SUCCESSFUL. PT SHOWS NO OVERT PHYSIOLOGICAL SIGNS OF ETOH WITHDRAWAL , BESDIES RESTLESSNESS. RIGHT AC IV REMOVED DUETO LEAKING AND POWERGLIDE DRAWS BACK WITH TURNIQUET. RIGHT WRIST IV DRAWS AND FLUSHES WELL.
[2024-03-05 20:53] LABS: Bun/Creatinine Ratio 17.7 (12.0-20.0); Calcium, Blood 8.7 mg/dL (8.5-10.1); Creatinine, Blood 0.51 mg/dL (0.60-1.20); Potassium, Blood 4.3 mmol/L (3.5-5.5)
[2024-03-05] MEDS ORDERED: Insulin Glargine-Yfgn 100 Unit/mL 3 ML SYR SC SCH (22:20)
--- NOTE | 2024-03-05 23:52 | NUR ---
UPDATE FOLLWOING 1730 LABS, PROVIDER CALLED. CONSIDERING A CONTINUED CLOSED ANION GAP AND EVER DECREASING POC GLUCOSES (ALONG WITH INUSLIN INFUSION RATE CURRENTLY AT 2UNITS/HR), PROVIDER ORDERED STOPPING INSULIN DRIP AT MIDNIGHT, STARTING INSULIN GLARGINE 14 UNITS BID WITH FIRST DOSE NOW AND HUMALOG ACHS LOW DEGREE SS. PROVIDER ALSO DC'D Q 3 LABS, REPLACING WTIH STANDARD AM LABS. POC GLUCOSE CHECKS CHANGED TO 0200 AND Q 4 AFTER.
[2024-03-06] VITALS (15 sets, daily range): BP systolic 97–158; BP diastolic 55–82
[2024-03-06 05:13] LABS: Bun/Creatinine Ratio 13.6 (12.0-20.0); Calcium, Blood 8.5 mg/dL (8.5-10.1); Creatinine, Blood 0.44 mg/dL (0.60-1.20); Potassium, Blood 4.2 mmol/L (3.5-5.5)
[2024-03-06 05:34] LABS: Source, Urine Foley catheter
[2024-03-06 05:37] LABS: Appearance, Urine Clear (Clear); Bilirubin, Urine Neg (Neg); Blood, Urine 2+ (Neg); Glucose Qualitative, Urine Neg (Neg); Ketones, Urine Neg (Neg); Leukocyte Esterase, Urine 1+ (Neg); Nitrite, Urine Neg (Neg); Protein, Urine Neg (Neg); Urobilinogen, Urine NORM (Normal)
[2024-03-06 05:52] LABS: Color, Urine Pale Yellow (P-Yellow)
[2024-03-06 05:53] LABS: Bacteria Few /hpf; Red Blood Cells, Urine 0-2 /hpf (0-2); Squamous Epithelial Cells Few /hpf (Few)
--- NOTE | 2024-03-06 06:26 | NUR ---
SHIFT SUMMARY PT LYING IN BED SLEEPING. PT AWAKES TO VOICE AND CONTINUES TO REMAIN UNRESPONSIVE TO SOME ORIENTATION QUESTIONS. PT FOLLOWS COMMANDS AND CAN MOVE ALL EXTREMITIES. PT IN SINUS RHYTHM WITH HR OF 83 AND BP 121/55. PT DENIES CHEST PAIN. LUNGS ARE CLEAR BUT RESPIRATORY RATE IN THE 30S. PT SATS IN LOW 90S/HIGH 80S AT TIMES WHILE SLEEPING. PT DENIES NAUSEA. SECOND BLADDER SCAN OF SHIFT SHOWS 500ML REMAINING. PER PROVIDER ORDER, CAST PLACED WITH PT EXPERIENCING INTENSE PAIN WITH CLEANING OF PENIS HEAD. LEFT POWERGLIDE IS POSITIONAL. INSULIN DRIP/FLUIDS OFF FOR 7 HOURS; REPLACED WITH BID LONG ACTING AND ACHS SHORT ACTING ON LOW DEGREE SS. LATEST LABS SHOW CO2 OF 26 AND ANION GAP OF 10 WITH GLUCOSE OF 152.
[2024-03-06] MEDS ORDERED: Insulin Human Lispro 100 Units/ML 3ML Syringe SC SCH ×2 (07:30→21:00)
--- NOTE | 2024-03-06 07:42 | NUR ---
PT IS SLEEPING, DURING BSR. VSS. BLOOD SUGAR CHECKED-113. NO COVERAGE INDICATED. PLAN-ENCOURAGE ORAL INTAKE, GET UP IN THE CHAIR.
[2024-03-06] MEDS ORDERED: Polyethylene Glycol 3350 17 gm PO SCH (09:00)
--- NOTE | 2024-03-06 16:49 | NUR ---
AND SISTERS AT BEDSIDE, HE IS MORE ALERT AND ENGAGING MORE NOW. WE WASHED HIS HAIR AND PUT IT IN A BUN, WASHED HIS FACE AND COMBED HIS LEE, PUT LOTION ON HIS FACE AROUND HIS MOUTH AND NOSE WHERE IT IS DRY. HE DECIDED HE WAS HUNGRY SO HE TOOK IN ALL HIS PEARS, HE IS EATING CHEESE, CARROTS, CELERY, TOMATOES, PICKLES AND RANCH DRESSING. C/O PAIN AT URETHRA WHEN CATHETER CARE PERFORMED. CLEANED AND OINTMENT APPLIED. HE PULLED OUT HIS RIGHT WRIST IV EARLIER TODAY WHILE SLEEPING, BUT IS MUCH MORE AWARE AND IS PULLING LESS AT THINGS NOW. HE WAS ABLE TO REPORT IT BEING 2023, STATED HE THOUGHT IT WAS FALL, HE REPORTED ON SOME OF HIS FAMILY MEMBERS BUT HAS THE LOCATION INCORRECT. 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 FAMILY (SISTERS) VERY ENCOURAGING AND ENGAGING WITH THE PATIENT.
[2024-03-06] MEDS ORDERED: Insulin Human Lispro 100 Units/ML 3ML Syringe SC ONE (18:15)
--- NOTE | 2024-03-06 18:34 | NUR ---
ROGER HAS BEEN SLEEPY MOST OF THE DAY. HE ROUSED THIS AFTERNOON WITH VISITORS IN THE ROOM. SEE PREVIOUS NOTE. HE ATE DINNER AND BEGAN GETTING FIDGETY AND ASKED TO USE THE BATHROOM. HE WAS REMINDED THAT HE HAD A CATHETER AND INSISTED THAT IT WASN'T THAT. FAMILY LEFT, ATTEMPTED 2 PERSON TRANSFER TO [facility], PT WAS UNABLE TO STRAIGHTEN AND STAND ON LEGS AND WAS HOLDING ON IN BENT POSITION. WAS LIFTED TO BS, INCONTINENT OF BOWEL ON WAY TO COMMODE. HE WAS CLEANED AND WAS 3 PERSON TRANSFER BACK TO BED. HE WAS PULLING HIS GOWN AND SLIPPERS OFF, FAN IS ON, LIGHT SHEET OVER PATIENT. WENT TO RETRIEVE FAMILY FROM WAITING ROOM AND DID NOT FIND THEM. PT IS NOW RESTING QUIETLY. DURING THIS TIME, CALLED TO HAVE AN ADDITIONAL DOSE OF INSULIN GIVEN AND INCREASE SS COVERAGE FROM LOW TO HIGH.
[2024-03-07 03:37] VITALS: BP 147/74
--- NOTE | 2024-03-07 04:47 | NUR ---
Pt resting quietly in bed. easy to awaken. Pt unable unwilling to cooperate with assessment. Pt agrees to converse in small amounts with ESTIMATOR PAPERBOARD BOXES. Pt offers no effort to converse with RN. Resp even and unlabored. Lungs clear to auscultation. No diustress noted.
[2024-03-07 06:04] LABS: BASOPHILS ABSOLUTE AUTO 0.02 K/mm3 (0.00-0.23); BASOPHILS PERCENT AUTO 0 % (0-2); EOSINOPHILS ABSOLUTE AUTO 0.06 K/mm3 (0.00-0.68); EOSINOPHILS PERCENT AUTO 1 % (0-6); Hematocrit 29.6 % (37.0-53.0); Hemoglobin 10.4 g/dL (13.5-17.5); IMMATURE GRAN ABSOLUTE AUTO 0.02 K/mm3 (0.00-0.10); IMMATURE GRAN PERCENT AUTO 0 % (0-1); LYMPHOCYTES ABSOLUTE AUTO 1.03 K/mm3 (0.84-5.20); LYMPHOCYTES PERCENT AUTO 17 % (21-46); MONOCYTES ABSOLUTE AUTO 1.01 K/mm3 (0.16-1.47); MONOCYTES PERCENT AUTO 17 % (4-13); Mean Corpuscular HGB 33.5 pg (26.0-34.0); Mean Corpuscular HGB Conc 35.1 g/dL (31.5-36.5); Mean Corpuscular Volume 96 fL (80-100); Mean Platelet Volume 9.4 fL (9.1-12.4); NEUTROPHILS ABSOLUTE AUTO 3.78 K/mm3 (1.96-9.15); NEUTROPHILS PERCENT AUTO 64 % (41-73); Platelet Count 180 K/mm3 (150-400); RDW Coefficient Variation 11.6 % (11.7-14.2); RDW Standard Deviation 40.2 fL (35.1-46.3); White Blood Cell Count 5.92 K/mm3 (4.00-11.30)
[2024-03-07 06:23] LABS: Albumin, Blood 1.9 g/dL (3.4-5.0); Albumin/Globulin Ratio 0.4 (0.8-1.8); Bilirubin, Total 0.4 mg/dL (0.1-1.0); Bun/Creatinine Ratio 16.5 (12.0-20.0); Calcium, Blood 8.6 mg/dL (8.5-10.1); Creatinine, Blood 0.55 mg/dL (0.60-1.20); Globulin, Blood 4.3 g/dL (2.2-4.0); Potassium, Blood 3.3 mmol/L (3.5-5.5); Total Protein, Blood 6.2 g/dL (6.4-8.2)
[2024-03-07 07:12] VITALS: BP 140/72
[2024-03-07] MEDS ORDERED: Thiamine HCl 100 MG Tab PO SCH (09:00)
[2024-03-07] MEDS ORDERED: Folic Acid 1 MG TAB PO SCH (09:00)
[2024-03-07] MEDS ORDERED: DiphenhydrAMINE HCL 25 MG Cap PO ONE (14:35)
[2024-03-07 15:20] VITALS: BP 115/57
--- NOTE | 2024-03-07 18:40 | NUR ---
REPORT RECEIVED VERIFIED A/O X1 OR 2 AND WILL NOT ANSWER QUESTION, REPOSTIONED AND SAT UP FOR BREAKFAST, HVAC DESIGN MECHANICAL ENGINEER AND STUDENT HELP FEED PT. PT COOPERATIVE WITH CARE. PHYSICAL T ATTEMPTED TO HELP WITH PT AMBULATION BUT PT IS CURRENTLY TOTAL CARE AND IS A LIFT PT. SISTERS AT BED SIDE.
[2024-03-07 19:11] VITALS: BP 153/70
[2024-03-08 03:44] VITALS: BP 135/75
--- NOTE | 2024-03-08 04:08 | NUR ---
PT OBSERVED OOB ON THE FLOOR WEDGED BETWEEN THE COUCH AND HOSPITAL BED. iNCONTINENT OF BM. SKIN TEAR NOTED TO LEFT UPPER ARM MD AND CHARGE NURSE NOITIED AND ARRIVED AT BEDSIDE. PT ASSISTED OFF THE FLOOR WITH 4 STAFF AND CORDELL LIFT. PT C/O GENERALIZED PAIN. NO INJURIES OTHER THAN SKIN TEAR INDICATED. MD ASKED ABOUT XRAYS. MD ASKED ABOUT XRAYS. MD, "I DIDNT SEE ANYTHING THAT LOOKED LIKE HE MIGHT NEED XRAYS. PT ASSISTED BACK TO BED. SKIN CARE DONE. DRESSING APPLIED TO LEFT ARM WOUND.
--- NOTE | 2024-03-08 04:21 | NUR ---
PT RESTING QUIETLY AT THIS TIME. SEE NOTE REGARDING FALL.
--- NOTE | 2024-03-08 04:22 | NUR ---
BED USED DURING FALL REMOVED FROM SERVICE DUE TO BED ALARM FAILURE.
[2024-03-08 07:29] VITALS: BP 130/70
[2024-03-08] MEDS ORDERED: Polyethylene Glycol 3350 17 gm PO PRN (11:58)
[2024-03-08] MEDS ORDERED: Sennosides 8.6 MG Tab PO PRN (11:58)
[2024-03-08 13:24] LABS: BASOPHILS ABSOLUTE AUTO 0.01 K/mm3 (0.00-0.23); BASOPHILS PERCENT AUTO 0 % (0-2); EOSINOPHILS ABSOLUTE AUTO 0.07 K/mm3 (0.00-0.68); EOSINOPHILS PERCENT AUTO 1 % (0-6); Hematocrit 29.1 % (37.0-53.0); IMMATURE GRAN ABSOLUTE AUTO 0.02 K/mm3 (0.00-0.10); IMMATURE GRAN PERCENT AUTO 0 % (0-1); LYMPHOCYTES ABSOLUTE AUTO 0.89 K/mm3 (0.84-5.20); LYMPHOCYTES PERCENT AUTO 15 % (21-46); MONOCYTES ABSOLUTE AUTO 0.75 K/mm3 (0.16-1.47); MONOCYTES PERCENT AUTO 13 % (4-13); Mean Corpuscular HGB 32.9 pg (26.0-34.0); Mean Corpuscular HGB Conc 34.4 g/dL (31.5-36.5); Mean Corpuscular Volume 96 fL (80-100); NEUTROPHILS ABSOLUTE AUTO 4.09 K/mm3 (1.96-9.15); NEUTROPHILS PERCENT AUTO 70 % (41-73); Platelet Count 227 K/mm3 (150-400); RDW Coefficient Variation 11.8 % (11.7-14.2); RDW Standard Deviation 41.1 fL (35.1-46.3); Red Blood Cell Count 3.04 M/mm3 (4.30-5.90); White Blood Cell Count 5.83 K/mm3 (4.00-11.30)
[2024-03-08 13:47] LABS: Albumin, Blood 1.8 g/dL (3.4-5.0); Albumin/Globulin Ratio 0.4 (0.8-1.8); Bilirubin, Total 0.3 mg/dL (0.1-1.0); Bun/Creatinine Ratio 37.5 (12.0-20.0); Calcium, Blood 8.3 mg/dL (8.5-10.1); Creatinine, Blood 0.48 mg/dL (0.60-1.20); Globulin, Blood 4.2 g/dL (2.2-4.0); Magnesium, Blood 2.1 mg/dL (1.6-2.4); Potassium, Blood 3.1 mmol/L (3.5-5.5)
[2024-03-08 15:36] VITALS: BP 105/91
--- NOTE | 2024-03-08 16:45 | NUR ---
SHIFT SUMMARY PT RESTING QUIETLY AT START OF SHIFT. WOKE EASILY FOR CARE. PT HAS BEEN PLEASANT AND CO-OP. MULTIPLE VISITORS TO RM ALL DAY. PT HAS BEEN TALKATIVE. INCONTINENT OF BOWELS WITH LOOSE STOOLS. BOWEL CARE HELD AND LATER D/C'D BY DR FARMER. PT IS VERY WEAK AND UNABLE TO BEAR ANY WT HIMSELF; 3P ASSIST ATTEMPTED TO BSC; UNSUCCESSFUL. DR FARMER HERE TO SEE PT THIS AM. INSULIN TO BE ADJUSTED. PER REPORT, PT TO D/C TO SNF WHEN READY FOR D/C. NO C/O PAIN. DENIED NEEDS AT THIS TIME. CALL LT IN REACH.
[2024-03-08] MEDS ORDERED: Potassium Chloride 20 MEQ TabCR PO SCH (17:00)
[2024-03-08 19:22] VITALS: BP 125/67
[2024-03-08] MEDS ORDERED: Insulin Glargine-Yfgn 100 Unit/mL 3 ML SYR SC SCH (21:00)
--- NOTE | 2024-03-09 03:34 | NUR ---
ASSISTANT PROGRAM MANAGER SUMMARY VSS. ACCU CHECK AT HS WAS 259, INSULIN ADMINISTERED. COOPERATIVE WITH MEDS. SOME CONFUSION WITH ANSWERS TO QUESTIONS ASKED. OCCASIONAL JOKING WITH STAFF. INCONT OF FECES AND URINE, CLEANED AND LINEN CHANGED. MULTIPLE ATTEMPTS TO REMOVE DIAPERS AND LINEN COVERING HIM. INTERMITTENT NUDITY, ENCURAGED TO COMPLY WITH KEEPING CLOTHES AND COVERS ON BUT CONTINUES TO REMOVE THEM. HAS BEEN RESTING QUIETLY AT INTERVALS. ABLE TO REPOSITION ELF IN BED WITHOUT ASSIST FOR COMFORT. CALL LIGHT IN REACH, RAILS UP X 3 AND BED IN LOW POSITION FOR SAFETY. WILL CONTINUE TO MONITOR
[2024-03-09 03:59] VITALS: BP 137/79
[2024-03-09 04:59] LABS: Hematocrit 27.6 % (37.0-53.0); Hemoglobin 9.5 g/dL (13.5-17.5); Mean Corpuscular HGB 32.8 pg (26.0-34.0); Mean Corpuscular HGB Conc 34.4 g/dL (31.5-36.5); Mean Corpuscular Volume 95 fL (80-100); Mean Platelet Volume 9.1 fL (9.1-12.4); Platelet Count 243 K/mm3 (150-400); RDW Coefficient Variation 11.5 % (11.7-14.2); White Blood Cell Count 5.62 K/mm3 (4.00-11.30)
[2024-03-09 05:25] LABS: BAND PERCENT MAN 9 % (0-8); BASOPHILS ABSOLUTE MAN 0.05 K/mm3 (0.00-0.23); BASOPHILS PERCENT MAN 1 % (0-2); EOSINOPHILS ABSOLUTE MAN 0.16 K/mm3 (0.00-0.68); EOSINOPHILS PERCENT MAN 3 % (0-6); LYMPHOCYTES ABSOLUTE MAN 0.84 K/mm3 (0.84-5.20); LYMPHOCYTES PERCENT MAN 15 % (21-46); MONOCYTES ABSOLUTE MAN 0.44 K/mm3 (0.16-1.47); MONOCYTES PERCENT MAN 8 % (4-13); SEG NEUTROPHILS PERCENT MAN 64 % (41-73); TOTAL CELLS COUNTED 100
[2024-03-09 06:06] LABS: Albumin, Blood 1.7 g/dL (3.4-5.0); Albumin/Globulin Ratio 0.4 (0.8-1.8); Bilirubin, Total 0.3 mg/dL (0.1-1.0); Bun/Creatinine Ratio 24.5 (12.0-20.0); Calcium, Blood 8.2 mg/dL (8.5-10.1); Creatinine, Blood 0.49 mg/dL (0.60-1.20); Globulin, Blood 4.1 g/dL (2.2-4.0); Potassium, Blood 3.1 mmol/L (3.5-5.5); Total Protein, Blood 5.8 g/dL (6.4-8.2)
[2024-03-09 07:28] VITALS: BP 134/72
[2024-03-09] MEDS ORDERED: Insulin Human Lispro 100 Units/ML 3ML Syringe SC SCH ×2 (07:30→08:30)
--- NOTE | 2024-03-09 10:35 | NUR ---
MESSAGE TO PRIMARY RN TO CALL DR MARADIAGA WHEN BACK FROM BREAK: [phone].
--- NOTE | 2024-03-09 10:47 | NUR ---
UPDATE VIRTUAL HAND DRAWER IN FORM FILLED OUT AND FAXED TO [facility]. CAMERA IN PATIENT ROOM AND PLUGGED IN. CAMERA IN USE FOR SAFETY/FALL PREVENTION. PATIENT GETTING OUT OF BED FREQUENTLY WITHOUT USING CALL LIGHT. EDUCATION PROVIDED TO PATIENT ABOUT CALL LIGHT AND PATIENT STILL ATTEMPTS TO GET OUT OF BED WITHOUT CALLING.
[2024-03-09 15:18] VITALS: BP 121/65
--- NOTE | 2024-03-09 19:28 | NUR ---
SHIFT SUMMARY PATIENT ABLE TO SIT IN CHAIR FOR PART OF SHIFT. A/O X3-4. REDRESSED SKIN TEARS TO LEFT ARM. PATIENT AGREEABLE TO TAKE INSULIN. DR MARADIAGA ORDERED 6 UNITS HUMALOG TO BE GIVEN WITH MEALS REGARDLESS GLUCOSE, UNLESS IT IS BELOW 80. ORDER PLACED TO REFLECT THIS. FAMILY IN ROOM TO VISIT. BED EXITING SEVERAL TIMES THIS SHIFT AND GIVEN FALL HISTORY AND NOT REDIRECTING WELL, CAMERA PLACED IN ROOM FOR SAFETY. CALL LIGHT IN REACH, PATIENT DOESN'T USE IT. CARES ONGOING.
[2024-03-09 19:52] VITALS: BP 118/76
--- NOTE | 2024-03-09 21:48 | NUR ---
VIDEO MONITORING FOR SAFETY. IN CHAIR RECLINER, RESTING. CALL LIGHT IN REACH
[2024-03-10 03:20] VITALS: BP 134/75
--- NOTE | 2024-03-10 04:18 | NUR ---
MILLWRIGHT APPRENTICE SUMMARY VSS. ON CAMERA FOR SAFETY, WAS UP IN RECLINER CHAIR MOST OF EVENING DUE TO NOT WANTING TO REMAIN IN BED. SLEPT IN CHAIR UNTIL HE BECAME AGITATED. WAS THEN ASSISTED INTO BED (2) PERSON ASSIST. SOME CONFUSION BUT COMPLIANT WITH TREATMENT. ACCU CHECK AT WAS 299 AND RECEIVED INSULIN ORDERED. NO NOTED DISTRESS OTHERWISE. HAS BEEN RESTING QUIETLY WITH OCCASIONAL INTERUPTION - CHANGED DUE TO INCONTINENCE. ABLE TO REPOSITION SELF IN BED WITHOUT ASSIST FOR COMFORT AND SKIN MAINTENANCE. CALL LIGHT IN REACH, RAILS UP X 2 AND BED IN LOW POSITION FOR SAFETY. WILL CONT TO MONITOR.
[2024-03-10 07:23] VITALS: BP 135/85
[2024-03-10 08:21] LABS: BASOPHILS ABSOLUTE AUTO 0.04 K/mm3 (0.00-0.23); BASOPHILS PERCENT AUTO 1 % (0-2); EOSINOPHILS ABSOLUTE AUTO 0.13 K/mm3 (0.00-0.68); EOSINOPHILS PERCENT AUTO 2 % (0-6); Hemoglobin 10.5 g/dL (13.5-17.5); IMMATURE GRAN ABSOLUTE AUTO 0.02 K/mm3 (0.00-0.10); IMMATURE GRAN PERCENT AUTO 0 % (0-1); LYMPHOCYTES ABSOLUTE AUTO 1.41 K/mm3 (0.84-5.20); LYMPHOCYTES PERCENT AUTO 24 % (21-46); MONOCYTES ABSOLUTE AUTO 0.58 K/mm3 (0.16-1.47); MONOCYTES PERCENT AUTO 10 % (4-13); Mean Corpuscular HGB 32.9 pg (26.0-34.0); Mean Corpuscular HGB Conc 33.9 g/dL (31.5-36.5); Mean Corpuscular Volume 97 fL (80-100); Mean Platelet Volume 9.5 fL (9.1-12.4); NEUTROPHILS PERCENT AUTO 62 % (41-73); Platelet Count 321 K/mm3 (150-400); RDW Coefficient Variation 11.5 % (11.7-14.2); RDW Standard Deviation 40.9 fL (35.1-46.3); Red Blood Cell Count 3.19 M/mm3 (4.30-5.90); White Blood Cell Count 5.78 K/mm3 (4.00-11.30)
[2024-03-10 08:55] LABS: Albumin/Globulin Ratio 0.4 (0.8-1.8); Bilirubin, Total 0.3 mg/dL (0.1-1.0); Calcium, Blood 9.2 mg/dL (8.5-10.1); Creatinine, Blood 0.52 mg/dL (0.60-1.20); Globulin, Blood 4.5 g/dL (2.2-4.0); Phosphorus, Blood 3.1 mg/dL (2.5-4.9); Potassium, Blood 4.1 mmol/L (3.5-5.5); Total Protein, Blood 6.5 g/dL (6.4-8.2)
[2024-03-10 15:56] VITALS: BP 128/69
--- NOTE | 2024-03-10 17:25 | NUR ---
SHIFT SUMMARY PATIENT UP TO CHAIR SEVERAL TIMES THIS SHIFT, MORE COOPERATIVE THIS SHIFT COMPARED TO YESTERDAY. NO FURTHER C/O FEELING LIKE HE HAS URINE RETENTION, ABLE TO VOID ADEQUATE AMOUNTS EACH VOID. IN TO VISIT THIS SHIFT. CALL LIGHT IN REACH, ABLE TO MAKE NEEDS KNOWN. CARES ONGOING.
[2024-03-10 19:50] VITALS: BP 130/71
--- NOTE | 2024-03-11 03:08 | NUR ---
FELTING MACHINE OPERATOR SUMMARY VSS. ACCU CHECK WAS 182 AT HS AND SHORT ACTING INSULIN WAS HELD, BUT RECEIVED LONG ACTING INSULIN ORDERED. ALERT TO QUESTIONS ASKED, BUT CONTINUES TO PUSH AGAINST ADHEARANCE WITH SAFETY ISSUES LIKE REMAINING IN BED AND ASKING FOR ASSISTANCE WHEN NEEDING TO GET OUT OF BED FOR BATHROOM ISSUES. CAMERA REMAINS IN THE ROOM TO ENSURE HE COMPLIES WITH SAFE BEHAVIOR. HAS BEEN RESTING WITH INTERMITTENT EPISODES OF THROWING OFF COVERS AND CLOTHES. IS A 2 PERSON ASSIST TO BEDSIDE COMMODE. ABLE TO REPOSITION SELF IN BED WITHOUT ASSIST. CALL LIGHT IN REACH, RAILS UP X 2 AND BED IN LOW POSITION FOR SAFETY. WILL CONTINUE TO MONITOR.
[2024-03-11 04:32] VITALS: BP 154/83
[2024-03-11 07:42] VITALS: BP 136/74
--- NOTE | 2024-03-11 09:03 | NUR ---
GERMAIN'Horacio VIRTUAL CAMERA AT 0835.
[2024-03-11 14:51] VITALS: BP 120/68
--- NOTE | 2024-03-11 16:32 | NUR ---
PT AOX2 AND HAS BEEN COOPERATIVE OF CARE. PT CAN BE IMPULSIVE AND WILL NOT CALL CHAIR AND BED ALARMS IN PLACE. PT HAD BANDAGE ON SCABS OF L ARM CHANGED. PT CURRENTLY SITTING IN RECLINER. WILL CONTINUE TO MONITOR.
[2024-03-11 19:09] VITALS: BP 131/73
[2024-03-11 20:16] VITALS: BP 126/68
[2024-03-12 03:50] VITALS: BP 127/60
--- NOTE | 2024-03-12 04:25 | NUR ---
INCLUSION SPECIAL EDUCATOR SUMMARY NO OVERNIGHT EVENTS. CAMERA HAS BEEN DISCONTINUED FROM ROOM AND PT CONTINUES TO BE ORIENTED X 1-2 BUT IS PLEASANT AND REORIENTS EASILY. INCONTINENT AT TIMES BUT MOSTLY CONTINENT IF REMINDERS ARE GIVEN TO USE THE URINAL DURING ROUNDS. PT CONTINUES TO BE WEAK, REQUIRING ONE ASSIST WITH FWW/GB. BED ALARM ON, FALL PRECAUTIONS IN PLACE, CALL LIGHT WITHIN REACH.
[2024-03-12 05:59] LABS: BASOPHILS ABSOLUTE AUTO 0.03 K/mm3 (0.00-0.23); BASOPHILS PERCENT AUTO 1 % (0-2); EOSINOPHILS ABSOLUTE AUTO 0.11 K/mm3 (0.00-0.68); EOSINOPHILS PERCENT AUTO 3 % (0-6); Hematocrit 34.7 % (37.0-53.0); Hemoglobin 11.7 g/dL (13.5-17.5); IMMATURE GRAN ABSOLUTE AUTO 0.04 K/mm3 (0.00-0.10); IMMATURE GRAN PERCENT AUTO 1 % (0-1); LYMPHOCYTES ABSOLUTE AUTO 1.11 K/mm3 (0.84-5.20); LYMPHOCYTES PERCENT AUTO 26 % (21-46); MONOCYTES ABSOLUTE AUTO 0.58 K/mm3 (0.16-1.47); MONOCYTES PERCENT AUTO 14 % (4-13); Mean Corpuscular HGB 32.4 pg (26.0-34.0); Mean Corpuscular HGB Conc 33.7 g/dL (31.5-36.5); Mean Corpuscular Volume 96 fL (80-100); Mean Platelet Volume 9.3 fL (9.1-12.4); NEUTROPHILS ABSOLUTE AUTO 2.38 K/mm3 (1.96-9.15); NEUTROPHILS PERCENT AUTO 56 % (41-73); Platelet Count 346 K/mm3 (150-400); RDW Coefficient Variation 11.7 % (11.7-14.2); RDW Standard Deviation 41.3 fL (35.1-46.3); Red Blood Cell Count 3.61 M/mm3 (4.30-5.90); White Blood Cell Count 4.25 K/mm3 (4.00-11.30)
[2024-03-12 06:40] LABS: Bun/Creatinine Ratio 30.1 (12.0-20.0); Calcium, Blood 9.5 mg/dL (8.5-10.1); Creatinine, Blood 0.53 mg/dL (0.60-1.20); Potassium, Blood 4.8 mmol/L (3.5-5.5)
[2024-03-12 07:05] VITALS: BP 116/71
[2024-03-12 14:59] VITALS: BP 100/61
--- NOTE | 2024-03-12 16:51 | NUR ---
SHIFT SUMMARY PT AOX2 TO PLACE AND SELF. GENERALLY WEAK BUT EAGER TO USE RESTROOM OR COMODE WITH 2 PERSON ASSIST W/ GAIT BELT. INTOLERANT TO ACTIVITY AFTER A FEW STEPS AND STANDING FOR A MINUTE OR SO. IRRITIBLE WITH HIS CURRENT STATUS BUT KIND, COOPORATIVE, AND CALM WITH STAFF. MOSTLY CONTINENT THROUGH THE SHIFT TO URINE AND STOOL. BED IN LOWEST POSITION, 3 SIDE RAILS UP, AND CALL LIGHT WITHIN REACH.
--- NOTE | 2024-03-12 17:00 | NUR ---
HAVE REVIEWED AND AGREE WITH ALL NOTES AND ASSESSMENTS BY ALEXANDER VITAL.
[2024-03-12 21:27] VITALS: BP 125/68
--- NOTE | 2024-03-12 22:13 | NUR ---
HEARD PATIENT YELL OUT "SHIT" AND HEAD A THUD. UPON ENTERING PATIENT ROOM, FOUND PATIENT SITTING ON FLOOR WITH BACK AGAINST BED. LIFT USED TO GET PATIENT UP AND TO BED. PATIENT HAS 2 SCRATCHED NOTED TO RIGHT UPPER BACK AND RED CIRCULAR VANNA TO RIGHT FLANK AREA.
[2024-03-12 22:23] VITALS: BP 121/80
--- NOTE | 2024-03-12 22:24 | NUR ---
HOSPITALIST CONTACTED. HOSPITALIST MAURA CONTACTED FOR PATIENT FALL. MAURA NOTIFIED OF PATIENT FALL AND PALMER-RIGHT UPPER BACK/ RIGHT FLANK. HOSPITALLIT LORENZO ADVISED TO WATCH AND IF PATIENT DEVELOPS INABILITY TO MOVE RIGHT ARM OR ABNORMAL PAIN IMAGING WILL BE ORDERED.
[2024-03-12 22:56] VITALS: BP 121/80
--- NOTE | 2024-03-12 23:14 | NUR ---
PATIENT IS IMPULSIVE AND YELLING OUT AT BED ALARM. BED ALARM IS ON FOR PATIENT SAFETY. PATIENT DOES NOT STAND WELL, PATIENTS GAIT IS UNSTEADY, PATIENT DOES NOT STAND ERRECT INSTEAD STANDS BENT AT WAIST.
--- NOTE | 2024-03-13 04:49 | NUR ---
SHIFT SUMMARY. PATIENT IS ALERT TO PERSON, SELF, PLACE. PATIENT HAVING TIMES OF AGGITATION. PATIENT HAS UNSTEADY GAIT REQUIRING AT LEAST A 2 PERSON TRANSFER WITH GAIT BELT-PATIENT DOES NOT STAND ERRECT. PATIENT HAD FALL TONIGHT-SEE PREVIOUS NOTE; PATIENT DOES NOT LIKE TO WEAR A GOWN, NO YELLOW GOWN IN PLACE, PATIENT DOES HAVE YELLOW SOCKS IN ROOM THAT PATIENT DOES NOT LIKE TO WEAR IN BED PER PATIENT. BED ALARM IS ON FOR PATIENT SAFETY. PATIENT ENCOURAGED TO USE URINAL-PATIENT WANTING TO GET UP TO [facility] [place]; PATIENT IS A DIFFICULT TRANSFER AND VERY UNSTEADY GAIT-PATIENT WILL HOLD ON TO FURNITURE CAUSING A HIGHER RISK FOR FALLS. PATIENT YELLING OUT, NOT USING CALL LIGHT. BED IS LOCKED IN THE LOWEST POSITION, BED ALARM ENGAGED AND CALL LIGHT IN REACH. CARE IS ONGOING.
[2024-03-13 05:46] LABS: BASOPHILS ABSOLUTE AUTO 0.03 K/mm3 (0.00-0.23); BASOPHILS PERCENT AUTO 1 % (0-2); EOSINOPHILS ABSOLUTE AUTO 0.09 K/mm3 (0.00-0.68); EOSINOPHILS PERCENT AUTO 3 % (0-6); Hematocrit 32.9 % (37.0-53.0); Hemoglobin 10.8 g/dL (13.5-17.5); IMMATURE GRAN ABSOLUTE AUTO 0.02 K/mm3 (0.00-0.10); IMMATURE GRAN PERCENT AUTO 1 % (0-1); LYMPHOCYTES ABSOLUTE AUTO 0.75 K/mm3 (0.84-5.20); LYMPHOCYTES PERCENT AUTO 22 % (21-46); MONOCYTES ABSOLUTE AUTO 0.47 K/mm3 (0.16-1.47); MONOCYTES PERCENT AUTO 14 % (4-13); Mean Corpuscular HGB 32.6 pg (26.0-34.0); Mean Corpuscular HGB Conc 32.8 g/dL (31.5-36.5); Mean Corpuscular Volume 99 fL (80-100); Mean Platelet Volume 9.3 fL (9.1-12.4); NEUTROPHILS ABSOLUTE AUTO 2.03 K/mm3 (1.96-9.15); NEUTROPHILS PERCENT AUTO 60 % (41-73); Platelet Count 350 K/mm3 (150-400); RDW Coefficient Variation 11.8 % (11.7-14.2); Red Blood Cell Count 3.31 M/mm3 (4.30-5.90); White Blood Cell Count 3.39 K/mm3 (4.00-11.30)
[2024-03-13 06:11] LABS: Bun/Creatinine Ratio 40.2 (12.0-20.0); Calcium, Blood 9.1 mg/dL (8.5-10.1); Creatinine, Blood 0.52 mg/dL (0.60-1.20); Potassium, Blood 4.4 mmol/L (3.5-5.5)
[2024-03-13 07:48] VITALS: BP 124/75
[2024-03-13 15:21] VITALS: BP 117/73
--- NOTE | 2024-03-13 17:11 | NUR ---
SHIFT SUMMARY PATIENT ALERT AND INTERACTIVE. EASILY IRRITABLE ESPECIALLY WITH BED AND CHAIR ALARMS. PATIENT IMPULSIVE AT TIMES. PATIENT ABLE TO WALK WITH WALKER BUT NEEDING CUEING ON PROPER AND SAFE USAGE. PATIENT TENDS TO FURNITURE WALK. PATIENT NEEDING TO BE ENCOURAGED TO STAND UP STRAIGHT. PATIENT FORGETFUL AND TENDS TO SAY "NO" BUT ALLOWS STAFF TO PERFORM TASKS. WHEN PATIENT QUESTIOED, HE STATES "I DON'T REALLY WANT TO BUT I GUESS I NEED TO. SPOKE WITH DISCHARGE PLANNING. ATTEMPTING TO MAKE ARRANGEMENTS FOR SNF.
[2024-03-13 19:35] VITALS: BP 117/69
[2024-03-13] MEDS ORDERED: Insulin Glargine-Yfgn 100 Unit/mL 3 ML SYR SC SCH (21:00)
[2024-03-14 02:53] VITALS: BP 123/66
--- NOTE | 2024-03-14 03:58 | NUR ---
SHIFT SUMMARY. PATIENT IS A&OX2-3. PATIENT EASILY IRRITABLE TO BED ALARM. PATIENT NEEDS ENCOURAGEMENT TO USE WALKER-PATIENT TENDS TO FURNITURE WALK. PATIENT NEEDING TO BE CUED TO STAND UP STRAIGHTT AT TIMES. PATIENT IS COOPERATIVE WITH. IMPULSIVE AT TIMES. PATIENT HAS SOME CONFUSION AND FORGETFULNESS. PATIENT RESTED OFF AND ON T/O NIGHT WITH RESPIRATIONS EQUAL AND UNLABORED. BED IS LOCKED IN THE LOWEST POSITION, BED EXIT ENGAGED, AND CALL LIGHT IN REACH. CARE IS ONGOING.
[2024-03-14 05:54] LABS: BASOPHILS ABSOLUTE AUTO 0.01 K/mm3 (0.00-0.23); BASOPHILS PERCENT AUTO 0 % (0-2); EOSINOPHILS ABSOLUTE AUTO 0.09 K/mm3 (0.00-0.68); EOSINOPHILS PERCENT AUTO 3 % (0-6); Hematocrit 32.7 % (37.0-53.0); Hemoglobin 10.8 g/dL (13.5-17.5); IMMATURE GRAN ABSOLUTE AUTO 0.02 K/mm3 (0.00-0.10); IMMATURE GRAN PERCENT AUTO 1 % (0-1); LYMPHOCYTES ABSOLUTE AUTO 0.86 K/mm3 (0.84-5.20); LYMPHOCYTES PERCENT AUTO 24 % (21-46); MONOCYTES PERCENT AUTO 14 % (4-13); Mean Corpuscular HGB 32.5 pg (26.0-34.0); Mean Corpuscular Volume 99 fL (80-100); Mean Platelet Volume 8.8 fL (9.1-12.4); NEUTROPHILS ABSOLUTE AUTO 2.13 K/mm3 (1.96-9.15); NEUTROPHILS PERCENT AUTO 59 % (41-73); Platelet Count 406 K/mm3 (150-400); RDW Coefficient Variation 11.9 % (11.7-14.2); RDW Standard Deviation 43.3 fL (35.1-46.3); Red Blood Cell Count 3.32 M/mm3 (4.30-5.90); White Blood Cell Count 3.61 K/mm3 (4.00-11.30)
[2024-03-14 06:30] LABS: Bun/Creatinine Ratio 31.2 (12.0-20.0); Calcium, Blood 9.7 mg/dL (8.5-10.1); Creatinine, Blood 0.58 mg/dL (0.60-1.20)
[2024-03-14 07:23] VITALS: BP 121/74
[2024-03-14 15:18] VITALS: BP 136/76
[2024-03-14 19:55] VITALS: BP 119/72
[2024-03-15 03:24] VITALS: BP 123/77
--- NOTE | 2024-03-15 05:12 | NUR ---
SHIFT SUMMARY. NO ACUTE CHANGES.PATIENT IS A&OX3-4. PATIENT GETS FRUSTRATED WITH BED ALARM BUT UNDERSTANDS THE NEED FOR USE. PATIENT HAS BEEN USING CALL LIGHT APPROPRIATELY AND MAKES HIS NEEDS KNOWN. PATIENT USING THE BSC WITH 1 PERSON ASSIST AND FWW. BED LOCKED IN THE LOWEST POSITION WITH CALL LIGHT IN REACH. CARE IS ONGOING.
[2024-03-15 06:09] LABS: BASOPHILS ABSOLUTE AUTO 0.03 K/mm3 (0.00-0.23); BASOPHILS PERCENT AUTO 1 % (0-2); EOSINOPHILS ABSOLUTE AUTO 0.11 K/mm3 (0.00-0.68); EOSINOPHILS PERCENT AUTO 3 % (0-6); Hematocrit 30.5 % (37.0-53.0); Hemoglobin 10.2 g/dL (13.5-17.5); IMMATURE GRAN ABSOLUTE AUTO 0.03 K/mm3 (0.00-0.10); IMMATURE GRAN PERCENT AUTO 1 % (0-1); LYMPHOCYTES ABSOLUTE AUTO 0.91 K/mm3 (0.84-5.20); LYMPHOCYTES PERCENT AUTO 20 % (21-46); MONOCYTES ABSOLUTE AUTO 0.65 K/mm3 (0.16-1.47); MONOCYTES PERCENT AUTO 15 % (4-13); Mean Corpuscular HGB 32.3 pg (26.0-34.0); Mean Corpuscular HGB Conc 33.4 g/dL (31.5-36.5); Mean Corpuscular Volume 97 fL (80-100); NEUTROPHILS ABSOLUTE AUTO 2.75 K/mm3 (1.96-9.15); NEUTROPHILS PERCENT AUTO 61 % (41-73); Platelet Count 405 K/mm3 (150-400); RDW Coefficient Variation 11.8 % (11.7-14.2); RDW Standard Deviation 41.6 fL (35.1-46.3); Red Blood Cell Count 3.16 M/mm3 (4.30-5.90); White Blood Cell Count 4.48 K/mm3 (4.00-11.30)
[2024-03-15 06:38] LABS: Bun/Creatinine Ratio 41.1 (12.0-20.0); Calcium, Blood 9.2 mg/dL (8.5-10.1); Creatinine, Blood 0.49 mg/dL (0.60-1.20); Potassium, Blood 4.2 mmol/L (3.5-5.5)
[2024-03-15 07:11] VITALS: BP 142/78
[2024-03-15 12:24] LABS: Influenza A, PCR NEGATIVE (NEGATIVE); Influenza B, PCR NEGATIVE (NEGATIVE); Resp Syncytial Virus, PCR NEGATIVE (NEGATIVE); SARS-Cov-2 (COVID-19) PCR, MMC NEGATIVE (NEGATIVE)
[2024-03-15 15:29] VITALS: BP 129/71
--- NOTE | 2024-03-15 17:32 | NUR ---
SHIFT SUMMARY PT IS A&O X3 AND ASSIST TIMES ONE IN ROOM. PT NOTED TO HAVE A WITNESSED FALL AT SHIFT CHANGE THIS AM AROUND 0700. PT NOTED TO HAVE SKIN TEAR TO LEFT ELBOW AND REDNESS NOTED TO BACK OF HEAD. PHYSICAIN NOTIFIED AND PLACED ORDER FOR HEAD CT WITH NO ACUTE ABNORMALITIES NOTED. PT DENIES PAIN THIS SHIFT. PT CONT TO BE IMPULSIVE THIS SHIFT AND ATTEMPT TO SELF TRANSFER. PT NOTIFED ABOUT FALL AND SKIN ISSUES WITH NO CONCERNS NOTED AT THIS TIME. PT HAS ALARMS IN PLACE FOR PT SAFTEY. PLAN IS FOR PT TO DC TO SNF TOMORROW.
[2024-03-15 19:57] VITALS: BP 119/61
[2024-03-16 05:16] VITALS: BP 121/70
--- NOTE | 2024-03-16 05:55 | NUR ---
SHIFT SUMMARY PT A&Ox3. COOPERATIVE OF CARE. NO ACUTE CHANGES. EGG CRATE PLACED ON MATTRESS D/T PT VERBALIZING DISCOMFORT FROM BED AND RESTLESNESS. PT IMPULSIVE AND WAS UP OOB QUICKLY T/O NIGHT TO USE BEDSIDE COMMODE. BED ALARM ON T/O NIGHT. VSS. BED IN LOWEST POSITION AND CALL LIGHT IN REACH.
[2024-03-16 06:04] LABS: BASOPHILS ABSOLUTE AUTO 0.03 K/mm3 (0.00-0.23); BASOPHILS PERCENT AUTO 1 % (0-2); EOSINOPHILS ABSOLUTE AUTO 0.14 K/mm3 (0.00-0.68); EOSINOPHILS PERCENT AUTO 4 % (0-6); Hematocrit 31.4 % (37.0-53.0); Hemoglobin 10.4 g/dL (13.5-17.5); IMMATURE GRAN ABSOLUTE AUTO 0.02 K/mm3 (0.00-0.10); IMMATURE GRAN PERCENT AUTO 1 % (0-1); LYMPHOCYTES ABSOLUTE AUTO 1.06 K/mm3 (0.84-5.20); LYMPHOCYTES PERCENT AUTO 32 % (21-46); MONOCYTES ABSOLUTE AUTO 0.55 K/mm3 (0.16-1.47); MONOCYTES PERCENT AUTO 16 % (4-13); Mean Corpuscular HGB 32.3 pg (26.0-34.0); Mean Corpuscular HGB Conc 33.1 g/dL (31.5-36.5); Mean Corpuscular Volume 98 fL (80-100); NEUTROPHILS ABSOLUTE AUTO 1.56 K/mm3 (1.96-9.15); NEUTROPHILS PERCENT AUTO 46 % (41-73); Platelet Count 429 K/mm3 (150-400); RDW Coefficient Variation 11.9 % (11.7-14.2); RDW Standard Deviation 42.5 fL (35.1-46.3); Red Blood Cell Count 3.22 M/mm3 (4.30-5.90); White Blood Cell Count 3.36 K/mm3 (4.00-11.30)
[2024-03-16 06:25] LABS: Albumin, Blood 2.3 g/dL (3.4-5.0); Albumin/Globulin Ratio 0.5 (0.8-1.8); Bilirubin, Total 0.4 mg/dL (0.1-1.0); Bun/Creatinine Ratio 32.4 (12.0-20.0); Calcium, Blood 9.7 mg/dL (8.5-10.1); Creatinine, Blood 0.49 mg/dL (0.60-1.20); Globulin, Blood 4.5 g/dL (2.2-4.0); Potassium, Blood 4.1 mmol/L (3.5-5.5); Total Protein, Blood 6.8 g/dL (6.4-8.2)
[2024-03-16 07:55] VITALS: BP 134/76
[2024-03-16] MEDS ORDERED: B-1100 M1 PO (10:13)
[2024-03-16] MEDS ORDERED: FOLI1 PO (10:13)
--- NOTE | 2024-03-16 12:28 | NUR ---
PT AWAKE DURING SHIFT REPORT, AGITATED, WANTING HIS BELONGINGS. PT MEDICALLY STABLE FOR D/C. [employer] ASSISTED WITH D/C TO . W/C TRANSPORT HERE AT 10:20 FOR P/U. PT ASSISTED IN GETTING DRESSED AND ASSISTED INTO W/C. ALL BELONGINGS GATHERED AND SENT WITH PT.
[2024-03-19] MEDS ORDERED: OXYC5 PO (12:43)
[2024-03-19] MEDS ORDERED: ACET500 PO (12:43)
== END 2024-03-16 10:26 | DRG 637 ==
LOC: ER 16:18 → ICUE 17:42 → EDBEDREQTM 17:57 → EDBEDREQ 17:57 → EDBEDREQSVC 17:57 → EDBEDREQ 18:00 → ICUE 19:04 → MEDS 03-06 19:51
PROVIDERS: Family Medicine; Internal Medicine; Nurse Practitioner Acute Care; Student in an Organized Health Care Education/Training Program; ADMIT Family Medicine
DX: E11.10 Type 2 diabetes mellitus with ketoacidosis without coma (principal); G93.41 Metabolic encephalopathy; F10.239 Alcohol dependence with withdrawal, unspecified; R65.10 Systemic inflammatory response syndrome (SIRS) of non-infectious origin without acute organ dysfunction; I25.10 Atherosclerotic heart disease of native coronary artery without angina pectoris; I10 Essential (primary) hypertension; E11.51 Type 2 diabetes mellitus with diabetic peripheral angiopathy without gangrene; E87.6 Hypokalemia; K21.9 Gastro-esophageal reflux disease without esophagitis; E78.5 Hyperlipidemia, unspecified; E86.0 Dehydration; R94.31 Abnormal electrocardiogram [ECG] [EKG]; E83.39 Other disorders of phosphorus metabolism; J44.9 Chronic obstructive pulmonary disease, unspecified; Z79.4 Long term (current) use of insulin; Z86.718 Personal history of other venous thrombosis and embolism; Z79.899 Other long term (current) drug therapy; Z79.84 Long term (current) use of oral hypoglycemic drugs; Z88.5 Allergy status to narcotic agent; Z95.1 Presence of aortocoronary bypass graft; Z95.5 Presence of coronary angioplasty implant and graft; W19.XXXA Unspecified fall, initial encounter; I25.2 Old myocardial infarction; Z98.890 Other specified postprocedural states; Z87.891 Personal history of nicotine dependence
CPT/HCPCS: 0241U; 36415; 36416; 51701; 51702; 51798; 70450; 71045; 71046; 72125; 80047; 80048; 80053; 80069; 81001; 82010; 82140; 82330; 82803; 82947; 83605; 83735; 83880; 84100; 84484; 85014; 85025; 85027; 85610; 85730; 87077; 87086; 87186; 93005; 93010; 94760; 96365-59; 96368; 97110; 97112; 97116; 97162; 97530; 99285-25; A9270; C1751; J0612; J1650; J1815; J2060; J2470; J3411; J3475; J3480; J7030; J7042; J7050; J7060; J7070; J7120

== ENCOUNTER 2024-04-09 18:49 | Emergency (ER) | payer OTHER ==
[~2024-04-09] VITALS: Ht 175.3 cm; Wt 68.0 kg
[~2024-04-09 18:49] MED LIST changes: +ACET500 PO; +B-1100 M1 PO; +FOLI1 PO; +FUROSEMIDE20 MG PO; +OXYC5 PO
[2024-04-09 19:18] LABS: BASOPHILS ABSOLUTE AUTO 0.06 K/mm3 (0.00-0.23); BASOPHILS PERCENT AUTO 1 % (0-2); EOSINOPHILS ABSOLUTE AUTO 0.12 K/mm3 (0.00-0.68); EOSINOPHILS PERCENT AUTO 1 % (0-6); Hematocrit 29.8 % (37.0-53.0); Hemoglobin 9.8 g/dL (13.5-17.5); IMMATURE GRAN ABSOLUTE AUTO 0.07 K/mm3 (0.00-0.10); IMMATURE GRAN PERCENT AUTO 1 % (0-1); LYMPHOCYTES ABSOLUTE AUTO 1.82 K/mm3 (0.84-5.20); LYMPHOCYTES PERCENT AUTO 18 % (21-46); MONOCYTES ABSOLUTE AUTO 0.89 K/mm3 (0.16-1.47); MONOCYTES PERCENT AUTO 9 % (4-13); Mean Corpuscular HGB 29.5 pg (26.0-34.0); Mean Corpuscular HGB Conc 32.9 g/dL (31.5-36.5); Mean Corpuscular Volume 90 fL (80-100); Mean Platelet Volume 8.8 fL (9.1-12.4); NEUTROPHILS ABSOLUTE AUTO 7.26 K/mm3 (1.96-9.15); NEUTROPHILS PERCENT AUTO 71 % (41-73); Platelet Count 668 K/mm3 (150-400); RDW Coefficient Variation 13.6 % (11.7-14.2); RDW Standard Deviation 44.1 fL (35.1-46.3); Red Blood Cell Count 3.32 M/mm3 (4.30-5.90); White Blood Cell Count 10.22 K/mm3 (4.00-11.30)
[2024-04-09 19:39] LABS: Albumin, Blood 2.1 g/dL (3.4-5.0); Albumin/Globulin Ratio 0.4 (0.8-1.8); Bilirubin, Total 0.3 mg/dL (0.1-1.0); Bun/Creatinine Ratio 43.9 (12.0-20.0); Calcium, Blood 9.4 mg/dL (8.5-10.1); Creatinine, Blood 0.5 mg/dL (0.60-1.20); Globulin, Blood 5.3 g/dL (2.2-4.0); Potassium, Blood 4.4 mmol/L (3.5-5.5); Total Protein, Blood 7.4 g/dL (6.4-8.2)
[2024-04-09] MEDS ORDERED: Lactated Ringer's 1,000 ML IV ONE (21:15)
[2024-04-09 21:26] LABS: Beta-hydroxybutyrate 11.7 mg/dL (0.2-2.8)
[2024-04-09 22:00] VITALS: BP 148/77
[2024-04-09] MEDS ORDERED: Acetaminophen 325 MG TABLET PO ONE (22:40)
[2024-04-09 23:01] LABS: Source, Urine Clean Catch
[2024-04-09 23:03] LABS: Bilirubin, Urine Neg (Neg); Blood, Urine Neg (Neg); Glucose Qualitative, Urine 4+ (Neg); Ketones, Urine 3+ (Neg); Leukocyte Esterase, Urine Neg (Neg); Nitrite, Urine Neg (Neg); Protein, Urine Neg (Neg); Specific Gravity, Urine 1.015 (1.003-1.022); Urobilinogen, Urine NORM (Normal)
[2024-04-09 23:06] LABS: Base Excess Venous 1.1 mmol/L; Bicarbonate Venous 25.4 mmol/L (24.0-30.0); pH Blood Venous 7.43 (7.34-7.37)
[2024-04-09 23:09] LABS: Appearance, Urine Clear (Clear); Color, Urine Yellow (P-Yellow)
== END 2024-04-10 00:10 | disposition home or self-care (01) ==
LOC: ER 18:49
PROVIDERS: Emergency Medicine; Student in an Organized Health Care Education/Training Program
DX: E11.65 Type 2 diabetes mellitus with hyperglycemia (principal); I10 Essential (primary) hypertension; K21.9 Gastro-esophageal reflux disease without esophagitis; E78.5 Hyperlipidemia, unspecified; J44.9 Chronic obstructive pulmonary disease, unspecified; I25.2 Old myocardial infarction; Z87.891 Personal history of nicotine dependence; Z79.02 Long term (current) use of antithrombotics/antiplatelets; Z79.4 Long term (current) use of insulin; Z79.84 Long term (current) use of oral hypoglycemic drugs; Z79.899 Other long term (current) drug therapy; Z88.5 Allergy status to narcotic agent
CPT/HCPCS: 80053; 81003; 82010; 82803; 82947; 85025; 96360; 99283-25; A9270; J7120

== ENCOUNTER → 2024-05-01 | Outpatient (CLI) | payer OTHER ==
[2024-05-01 10:42] LABS: BASOPHILS ABSOLUTE AUTO 0.05 K/mm3 (0.00-0.23); BASOPHILS PERCENT AUTO 0 % (0-2); EOSINOPHILS ABSOLUTE AUTO 0.02 K/mm3 (0.00-0.68); EOSINOPHILS PERCENT AUTO 0 % (0-6); Hematocrit 39.4 % (37.0-53.0); Hemoglobin 12.3 g/dL (13.5-17.5); IMMATURE GRAN ABSOLUTE AUTO 0.09 K/mm3 (0.00-0.10); IMMATURE GRAN PERCENT AUTO 0 % (0-1); LYMPHOCYTES ABSOLUTE AUTO 1.65 K/mm3 (0.84-5.20); LYMPHOCYTES PERCENT AUTO 8 % (21-46); MONOCYTES ABSOLUTE AUTO 1.77 K/mm3 (0.16-1.47); MONOCYTES PERCENT AUTO 8 % (4-13); Mean Corpuscular HGB 27.5 pg (26.0-34.0); Mean Corpuscular HGB Conc 31.2 g/dL (31.5-36.5); Mean Corpuscular Volume 88 fL (80-100); NEUTROPHILS ABSOLUTE AUTO 17.97 K/mm3 (1.96-9.15); NEUTROPHILS PERCENT AUTO 83 % (41-73); Platelet Count 212 K/mm3 (150-400); RDW Coefficient Variation 15.2 % (11.7-14.2); Red Blood Cell Count 4.48 M/mm3 (4.30-5.90); White Blood Cell Count 21.55 K/mm3 (4.00-11.30)
[2024-05-01 11:27] LABS: Alanine Aminotransfer (ALT/SGP 11 U/L (12-78); Albumin, Blood 2.7 g/dL (3.4-5.0); Albumin/Globulin Ratio 0.5 (0.8-1.8); Alk Phos 93 U/L (50-136); Anion Gap 15 mmol/L (3-11); Aspartate Aminotrans (AST/SGOT 8 U/L (12-37); Bilirubin, Total 0.7 mg/dL (0.1-1.0); Blood Urea Nitrogen 15 mg/dL (8-24); Bun/Creatinine Ratio 34.9 (12.0-20.0); CHOL/HDL RATIO 1.3; CO2, Blood 24 mmol/L (21-32); Calcium, Blood 10.3 mg/dL (8.5-10.1); Chloride, Blood 100 mmol/L (98-108); Cholesterol 81 mg/dL (50-200); Creatinine, Blood 0.43 mg/dL (0.60-1.20); Globulin, Blood 5.9 g/dL (2.2-4.0); Glomerular Filtration Rate 117 (60-); Glucose, Blood 181 mg/dL (70-99); HDL Cholesterol 64 mg/dL (>39); LDL/HDL RATIO 0.1; Low Density Lipoprotein Chol 9 mg/dL (0-110); Potassium, Blood 3.6 mmol/L (3.5-5.5); Sodium, Blood 135 mmol/L (136-145); Total Protein, Blood 8.6 g/dL (6.4-8.2); Triglycerides 39 mg/dL (30-160); Very Low Density Lipoprot Chol 7 mg/dL (6-32)
== END | disposition home or self-care (01) ==
LOC: LAB 08:50 → LAB SHORT 08:50
PROVIDERS: Physician Assistant
DX: E11.65 Type 2 diabetes mellitus with hyperglycemia (principal); G93.41 Metabolic encephalopathy; I10 Essential (primary) hypertension
CPT/HCPCS: 80053; 80061; 83036; 85025

== ENCOUNTER 2024-07-23 10:42 | Inpatient (IN) | payer OTHER ==
[~2024-07-23] VITALS: Ht 167.6 cm; Wt 52.5 kg
[2024-07-23] VITALS (28 sets, daily range): BP systolic 68–142; BP diastolic 38–77
[~2024-07-23 10:42] MED LIST changes: -JARDIANCE10 MG PO; -METF500 PO; +METO100 PO; -METO50 PO
[2024-07-23] MEDS ORDERED: NS 1,000 ML IV ONE (10:58)
[2024-07-23] MEDS ORDERED: NS 1,000 ML IV SCH (11:05)
[2024-07-23] MEDS ORDERED: Metoprolol Tartrate 1 MG/ML 5 ML VIAL IV PRN (11:05)
[2024-07-23 11:11] LABS: BASOPHILS ABSOLUTE AUTO 0.05 K/mm3 (0.00-0.23); BASOPHILS PERCENT AUTO 0 % (0-2); Base Excess Venous -31.2 mmol/L; Bicarbonate Venous 5.2 mmol/L (24.0-30.0); EOSINOPHILS PERCENT AUTO 0 % (0-6); Hematocrit 45.5 % (37.0-53.0); Hemoglobin 13.4 g/dL (13.5-17.5); IMMATURE GRAN PERCENT AUTO 1 % (0-1); LYMPHOCYTES ABSOLUTE AUTO 3.12 K/mm3 (0.84-5.20); LYMPHOCYTES PERCENT AUTO 21 % (21-46); MONOCYTES ABSOLUTE AUTO 0.73 K/mm3 (0.16-1.47); MONOCYTES PERCENT AUTO 5 % (4-13); Mean Corpuscular HGB 27.2 pg (26.0-34.0); Mean Corpuscular HGB Conc 29.5 g/dL (31.5-36.5); Mean Corpuscular Volume 93 fL (80-100); Mean Platelet Volume 9.3 fL (9.1-12.4); NEUTROPHILS ABSOLUTE AUTO 11.08 K/mm3 (1.96-9.15); NEUTROPHILS PERCENT AUTO 74 % (41-73); Platelet Count 322 K/mm3 (150-400); RDW Coefficient Variation 16.8 % (11.7-14.2); Red Blood Cell Count 4.92 M/mm3 (4.30-5.90); White Blood Cell Count 15.08 K/mm3 (4.00-11.30); pH Blood Venous < 6.82 (7.34-7.37)
[2024-07-23] MEDS ORDERED: Insulin Human Regular 100 UNIT in NS 100 ML IV SCH (11:15)
[2024-07-23] MEDS ORDERED: Sodium Bicarb 8.4% Inj 100 MEQ in Sodium Chloride 0.45% 1,000 ML IV SCH (11:20)
[2024-07-23] MEDS ORDERED: Sodium Bicarb 8.4% Inj 100 MEQ in Dextrose 5% 1,000 ML IV SCH (11:25)
[2024-07-23 11:33] LABS: Albumin, Blood 3.7 g/dL (3.4-5.0); Albumin/Globulin Ratio 0.7 (0.8-1.8); Bilirubin, Direct 0.1 mg/dL (0.0-0.3); Bilirubin, Indirect 0.5 mg/dL (0.1-0.7); Bilirubin, Total 0.6 mg/dL (0.1-1.0); Bun/Creatinine Ratio 24.5 (12.0-20.0); Calcium, Blood 10.4 mg/dL (8.5-10.1); Creatinine, Blood 0.94 mg/dL (0.60-1.20); Globulin, Blood 5.4 g/dL (2.2-4.0); Magnesium, Blood 2.9 mg/dL (1.6-2.4); Phosphorus, Blood 7.5 mg/dL (2.5-4.9); Total Protein, Blood 9.1 g/dL (6.4-8.2)
[2024-07-23] MEDS ORDERED: NS KCl 20mEq 1,000 ML IV SCH ×2 (11:55→14:55)
[2024-07-23 12:16] LABS: Influenza A, PCR NEGATIVE (NEGATIVE); Influenza B, PCR NEGATIVE (NEGATIVE); Resp Syncytial Virus, PCR NEGATIVE (NEGATIVE); SARS-Cov-2 (COVID-19) PCR, MMC NEGATIVE (NEGATIVE)
[2024-07-23 12:19] LABS: Calcium, Ionized (POC) 1.34 mmol/L (1.10-1.46); Chloride (POC) 112 mmol/L (98-108); Glucose (ISTAT POC) 371 mg/dL (70-99); Hemoglobin (POC) 14.6 g/dL (13.5-17.5); Potassium (POC) 5.3 mmol/L (3.5-5.5); Sodium (POC) 138 mmol/L (135-148); Total CO2 (POC) 6 mmol/L (21-32)
[2024-07-23] MEDS ORDERED: FLU VACC TS2024-25(6MOS UP)/PF 45 MCG/0.5 ML SYRINGE IM SCH (12:35)
[2024-07-23] MEDS ORDERED: Acetaminophen 500 MG Tab PO PRN (13:10)
[2024-07-23] MEDS ORDERED: OxyCODONE HCL 5 MG TAB PO PRN (13:10)
[2024-07-23 14:28] LABS: Albumin, Blood 3.3 g/dL (3.4-5.0); Anion Gap 30 mmol/L (3-11); Blood Urea Nitrogen 24 mg/dL (8-24); Bun/Creatinine Ratio 28.3 (12.0-20.0); CO2, Blood 5 mmol/L (21-32); Calcium, Blood 9.6 mg/dL (8.5-10.1); Chloride, Blood 110 mmol/L (98-108); Creatinine, Blood 0.85 mg/dL (0.60-1.20); Glomerular Filtration Rate 95 (60-); Glucose, Blood 389 mg/dL (70-99); Potassium, Blood 5.5 mmol/L (3.5-5.5); Sodium, Blood 139 mmol/L (136-145)
[2024-07-23] MEDS ORDERED: CefTRIAXone Sodium 1,000 MG in NS 100 ML IV SCH (16:15)
[2024-07-23 16:26] LABS: Base Excess Venous -18.9 mmol/L; Bicarbonate Venous 10.9 mmol/L (24.0-30.0); PCO2 Venous 28.8 mmHg (38-42); pH Blood Venous 7.15 (7.34-7.37)
[2024-07-23] MEDS ORDERED: Sodium Bicarb 8.4% Inj 150 MEQ in Dextrose 5% 1,000 ML IV SCH (18:05)
[2024-07-23 18:07] LABS: Bun/Creatinine Ratio 32.1 (12.0-20.0); Creatinine, Blood 0.72 mg/dL (0.60-1.20); Potassium, Blood 4.1 mmol/L (3.5-5.5)
--- NOTE | 2024-07-23 19:04 | NUR ---
Summary. Pt arrived to ICU at approximately 1440. Alert and oriented x3. Insulin GTT infusing, see flowsheet and emar for fluids/titrations. Pt able to get up to bedside commode with gait belt and 1 person assist. Pt increasingly confused during shift, having difficulty remembering where he is and what brought him here, able to verbally redirect pt so far. Nurse notify in chart for insulin/fluid overnight per Dr. Bennett. VS stable, see chart for further details.
[2024-07-23] MEDS ORDERED: D5W-1/2NS KCl 40mEq 1,000 ML IV SCH (19:05)
[2024-07-23 22:04] LABS: Bun/Creatinine Ratio 31.2 (12.0-20.0); Calcium, Blood 9.2 mg/dL (8.5-10.1); Creatinine, Blood 0.67 mg/dL (0.60-1.20); Potassium, Blood 4.5 mmol/L (3.5-5.5)
[2024-07-24] VITALS (23 sets, daily range): BP systolic 94–124; BP diastolic 47–67
[2024-07-24 00:41] LABS: Bun/Creatinine Ratio 32.5 (12.0-20.0); Calcium, Blood 8.8 mg/dL (8.5-10.1); Creatinine, Blood 0.62 mg/dL (0.60-1.20)
[2024-07-24 04:22] LABS: BASOPHILS ABSOLUTE AUTO 0.01 K/mm3 (0.00-0.23); BASOPHILS PERCENT AUTO 0 % (0-2); EOSINOPHILS ABSOLUTE AUTO 0.01 K/mm3 (0.00-0.68); EOSINOPHILS PERCENT AUTO 0 % (0-6); Hematocrit 29.3 % (37.0-53.0); Hemoglobin 9.7 g/dL (13.5-17.5); IMMATURE GRAN ABSOLUTE AUTO 0.02 K/mm3 (0.00-0.10); IMMATURE GRAN PERCENT AUTO 0 % (0-1); LYMPHOCYTES ABSOLUTE AUTO 1.31 K/mm3 (0.84-5.20); LYMPHOCYTES PERCENT AUTO 17 % (21-46); MONOCYTES ABSOLUTE AUTO 0.79 K/mm3 (0.16-1.47); MONOCYTES PERCENT AUTO 10 % (4-13); Mean Corpuscular HGB 27.1 pg (26.0-34.0); Mean Corpuscular HGB Conc 33.1 g/dL (31.5-36.5); Mean Platelet Volume 8.9 fL (9.1-12.4); NEUTROPHILS PERCENT AUTO 72 % (41-73); Platelet Count 197 K/mm3 (150-400); RDW Coefficient Variation 16.9 % (11.7-14.2); RDW Standard Deviation 50.4 fL (35.1-46.3); Red Blood Cell Count 3.58 M/mm3 (4.30-5.90); White Blood Cell Count 7.64 K/mm3 (4.00-11.30)
[2024-07-24 04:25] LABS: Mean Corpuscular Volume 82 fL (80-100)
[2024-07-24 04:41] LABS: Magnesium, Blood 1.9 mg/dL (1.6-2.4)
[2024-07-24 05:10] LABS: Albumin, Blood 2.4 g/dL (3.4-5.0); Albumin/Globulin Ratio 0.7 (0.8-1.8); Bilirubin, Total 0.2 mg/dL (0.1-1.0); Calcium, Blood 8.7 mg/dL (8.5-10.1); Creatinine, Blood 0.59 mg/dL (0.60-1.20); Globulin, Blood 3.5 g/dL (2.2-4.0); Phosphorus, Blood 1.6 mg/dL (2.5-4.9); Potassium, Blood 3.9 mmol/L (3.5-5.5); Total Protein, Blood 5.9 g/dL (6.4-8.2)
--- NOTE | 2024-07-24 06:37 | NUR ---
SHIFT SUMMARY PT ALERT AND ORIENTED TO SELF, CONFUSED TO SITUATION, DATE AND TIME AND PLACE, FORGETFUL AND IN NEED OF FREQUENT REMINDER, PT IMPULSIVE WITH ATTEMPTING TO GET OUT OF BED TO "GO GET COFFEE", BED ALARM ON, AFEBRILE, SR 70-80S, [id number], MAP>65, CAST PATENT AND DRAINING CLEAR YELLOW URINE TO GRAVITY, CMP EVERY 4 HOURS, CBG EVERY 1 HOUR WITH INSULIN GTT TITRATED PER DKA PROTOCOL, INSULIN INFUSING AT 2 UNITS/HOUR AT THIS TIME, D5 NA BICARB 150mEq INFUSING AT 100 ML/HR, D5 1/2NS WITH 40 KCL INFUSING AT 150 ML/HR, LEFT UPPER ARM POWERGLIDE PATENT, RIGHT UPPER ARM 20G PIV PATENT AND CLAMPED 0645 DR FARRIS ON UNIT AND NOTIFIED OF AM LABS WITH NEW ORDERS RECEIVED
[2024-07-24] MEDS ORDERED: Mag Sulfate 1 GM/D5% 100ML 100 ML IV STA (06:55)
[2024-07-24] MEDS ORDERED: Potassium Phosphate Dibasic 10 MM in Dextrose 5% 250 ML IV STA (06:56)
[2024-07-24] MEDS ORDERED: Sodium Phosphate 20 MM in Dextrose 5% 500 ML IV STA (06:57)
[2024-07-24] MEDS ORDERED: Insulin Human Lispro 100 Units/ML 3ML Syringe SC SCH ×2 (07:30→08:30)
[2024-07-24 08:31] LABS: Bun/Creatinine Ratio 22.5 (12.0-20.0); Calcium, Blood 8.9 mg/dL (8.5-10.1); Creatinine, Blood 0.58 mg/dL (0.60-1.20); Potassium, Blood 3.7 mmol/L (3.5-5.5)
[2024-07-24 08:31] LABS: Base Excess Venous -1.1 mmol/L; Bicarbonate Venous 23.4 mmol/L (24.0-30.0); PCO2 Venous 39.9 mmHg (38-42); pH Blood Venous 7.39 (7.34-7.37)
[2024-07-24] MEDS ORDERED: Pantoprazole Sodium 40 MG Tab PO SCH (09:00)
[2024-07-24] MEDS ORDERED: Clopidogrel Bisulfate 75 MG Tab PO SCH (09:00)
[2024-07-24] MEDS ORDERED: Insulin Glargine-Yfgn 100 Unit/mL 3 ML SYR SC SCH (09:00)
[2024-07-24] MEDS ORDERED: Enoxaparin 40 MG/0.4 ML SYR SC SCH (09:00)
[2024-07-24] MEDS ORDERED: Metoprolol Succinate 50 MG TABCR PO SCH ×2 (09:00→09:35)
[2024-07-24] MEDS ORDERED: Empagliflozin 25 MG TAB PO SCH (09:00)
[2024-07-24] MEDS ORDERED: Ezetimibe 10 MG Tab PO SCH (09:00)
[2024-07-24] MEDS ORDERED: TAMS.4ER PO (10:48)
[2024-07-24] MEDS ORDERED: Mag Sulfate 1 GM/D5% 100ML 100 ML IV ONE (11:05)
[2024-07-24 12:46] LABS: Albumin, Blood 2.3 g/dL (3.4-5.0); Anion Gap 9 mmol/L (3-11); Blood Urea Nitrogen 12 mg/dL (8-24); Bun/Creatinine Ratio 22.9 (12.0-20.0); CO2, Blood 25 mmol/L (21-32); Calcium, Blood 8.7 mg/dL (8.5-10.1); Chloride, Blood 107 mmol/L (98-108); Creatinine, Blood 0.53 mg/dL (0.60-1.20); Glomerular Filtration Rate 109 (60-); Glucose, Blood 325 mg/dL (70-99); Phosphorus, Blood 3.7 mg/dL (2.5-4.9); Potassium, Blood 4.6 mmol/L (3.5-5.5); Sodium, Blood 136 mmol/L (136-145)
--- NOTE | 2024-07-24 14:58 | NUR ---
Pt. is awake in bed when he welcomes my visit. Pt is pleasant. A brief life review is conducted. Pt. verbalized that his recreation programmer is one of his closest friends. Facilitated more life story and listened with interest and a calming presence. Pt. verbalized gratitude for the spiritual care visit.
--- NOTE | 2024-07-24 17:11 | NUR ---
PT RECIEVED FROM SCALING MACHINE OPERATOR. ORDERS TO D/C INSULIN AND TRANSITION OVER TO SLIDING SCALE AND LONG ACTING. PATIENT TOLERATED BREAKFAST AND LUNCH WITHOUT TROUBLE. VSS, AFEBRILE, 99%SPO2 ON RA. PATIENT ASSISTED OUT OF BED FOR MEALS. UP WITH ONE FOR CUES/MIN ASSIST. SERENE REMAINS IN PLACE. DR. 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 NO NEW ORDERS, CAST REMAINS IN PLACE AT THIS TIME. TRANSFER ORDERS TO MED/SURG WITH TELE. REPORT GIVEN TO ASIF, PATIENT SENT WITH BELONGINGS, AND MEDS. ALL QUESTIONS ANSWERED. THANK FOR FOR ALLOWING ME TO CARE FOR THE PATIENT.
--- NOTE | 2024-07-24 18:48 | NUR ---
TRANSFER NOTE/SHIFT SUMMARY PATIENT ARRIVED FROM ICU VIA WHEELCHAIR THIS EVENING AT 1717, 1 PERSON ASSIST. PATIENT A/OX3, ABLE TO MAKE NEEDS KNOWN. CAST IN PLACE, PER REPORT FROM ICU NURSE MD STATES TO NOT DC TODAY AND PLAN TO START FLOMAX AND REMOVE CATH TOMORROW. , JALIL, AT BEDSIDE UPON TRANSFER. SKIN ASSESSMENT COMPLETED AND PATIENT FOUND TO HAVE PRESSURE INJURY TO COCCYX, MD NOTIFIED AND WOUND CARE ORDERS RECIEVED. TELEMETRY IN PLACE. POWERGLIDE TO LEFT UPPER ARM. PATIENT ORIENTED TO ROOM AND CALL LIGHT SYSTEM. NO OTHER CONCERNS AT THIS TIME.
[2024-07-24] MEDS ORDERED: Protein Supplement 30 ML UD PO SCH (21:00)
--- NOTE | 2024-07-25 02:59 | NUR ---
SHIFT SUMMARY PT IS A/O X3-4, SOME CONFUSION NOTED BUT COOPERATIVE WITH CARE. PT IS ABLE TO MAKE HIS NEEDS KNOWN. @HS, PT LAYING IN BED, PT IS 1-PERSON ASSIST. CAST DRAINING YELLOW COLOR URINE TO GRAVITY. HS B. TELE:SR @72, PT DENIES PAIN/PRESSURE OR DISCOMFORT. NO EVENTS ON TELE T/O THIS SHIFT. NO ACUTE EVENTS/DISTRESS NOTED/REPORTED DURING THE NIGHT HRS. BED AT THE LOWEST POSITION, CALL LIGHT WITHIN REACH.
[2024-07-25 05:49] VITALS: BP 125/61
[2024-07-25 07:45] VITALS: BP 132/73
[2024-07-25] MEDS ORDERED: Insulin Human Lispro 100 Units/ML 3ML Syringe SC SCH ×2 (08:30→16:30)
[2024-07-25] MEDS ORDERED: Insulin Glargine-Yfgn 100 Unit/mL 3 ML SYR SC SCH (09:00)
[2024-07-25] MEDS ORDERED: Metoprolol Succinate 50 MG TABCR PO SCH (09:00)
[2024-07-25] MEDS ORDERED: Thiamine HCl 100 MG Tab PO SCH (09:00)
[2024-07-25 15:25] VITALS: BP 126/78
[2024-07-25] MEDS ORDERED: OXYC5 PO (17:35)
--- NOTE | 2024-07-25 18:41 | NUR ---
SHIFT SUMMARY: PATIENT'S A&OX3-CONFUSED; CAN BECOME AGGITATED. PATIENT CAN BE IMPULSIVE AND NOT FOLLOW DIRECTIONS. PATIENT'S HUMALOG WAS ADJUSTED TODAY---MEDIUM CORRECTION---HIGH CORRECTION. EVENING BLOOD SUGAR 76; DR. FARRIS NOTIFIED. PATIENT CALM AT THIS, IN BED, EATING DINNER, CALL LIGHT WITHIN REACH, BED ALARM SET, NO SIGNS OR SYMPTOMS OF DISTRESS, PLAN OF CARE ONGOING.
[2024-07-25 19:18] VITALS: BP 131/76
--- NOTE | 2024-07-26 03:26 | NUR ---
SHIFT SUMMARY PT IS A/O X3, SOME CONFUSION, ARGUMENTATIVE WITH STAFF BUT COOPERATIVE WITH CARE. SBA, DOES NOT CALL WHEN AMBULATING. BED ALARM FOR SAFETY. NO ACUTE EVENTS DURING THIS SHIFT. TELE: SR @78. HS B. RA, SAT'S>98%. BED AT THE LOWEST POSITION,CALL LIGHT W/I REACH.
[2024-07-26 04:34] VITALS: BP 132/80
[2024-07-26 07:44] VITALS: BP 137/74
[2024-07-26 08:22] LABS: BASOPHILS ABSOLUTE AUTO 0.01 K/mm3 (0.00-0.23); BASOPHILS PERCENT AUTO 0 % (0-2); EOSINOPHILS ABSOLUTE AUTO 0.05 K/mm3 (0.00-0.68); EOSINOPHILS PERCENT AUTO 1 % (0-6); Hematocrit 34.8 % (37.0-53.0); Hemoglobin 11.6 g/dL (13.5-17.5); IMMATURE GRAN PERCENT AUTO 0 % (0-1); LYMPHOCYTES ABSOLUTE AUTO 1.62 K/mm3 (0.84-5.20); LYMPHOCYTES PERCENT AUTO 37 % (21-46); MONOCYTES ABSOLUTE AUTO 0.51 K/mm3 (0.16-1.47); MONOCYTES PERCENT AUTO 12 % (4-13); Mean Corpuscular HGB 27.1 pg (26.0-34.0); Mean Corpuscular HGB Conc 33.3 g/dL (31.5-36.5); Mean Corpuscular Volume 81 fL (80-100); Mean Platelet Volume 9.3 fL (9.1-12.4); NEUTROPHILS PERCENT AUTO 50 % (41-73); Platelet Count 208 K/mm3 (150-400); RDW Coefficient Variation 17.5 % (11.7-14.2); RDW Standard Deviation 51.1 fL (35.1-46.3); Red Blood Cell Count 4.28 M/mm3 (4.30-5.90); White Blood Cell Count 4.39 K/mm3 (4.00-11.30)
[2024-07-26 08:32] LABS: Albumin, Blood 2.6 g/dL (3.4-5.0); Anion Gap 9 mmol/L (3-11); Blood Urea Nitrogen 16 mg/dL (8-24); CO2, Blood 26 mmol/L (21-32); Calcium, Blood 9.6 mg/dL (8.5-10.1); Chloride, Blood 110 mmol/L (98-108); Creatinine, Blood 0.43 mg/dL (0.60-1.20); Glomerular Filtration Rate 116 (60-); Glucose, Blood 150 mg/dL (70-99); Phosphorus, Blood 2.9 mg/dL (2.5-4.9); Potassium, Blood 3.1 mmol/L (3.5-5.5); Sodium, Blood 142 mmol/L (136-145)
[2024-07-26] MEDS ORDERED: B-1100 M1 PO (13:46)
[2024-07-26] MEDS ORDERED: CLOP75 PO (13:47)
[2024-07-26] MEDS ORDERED: AMOCLA875 PO (13:47)
--- NOTE | 2024-07-26 15:43 | NUR ---
DISCHARGE NOTE: PATIENT'S LINES AND TELE REMOVED, PATIENT'S ARRIVED AND HE GOT DRESSED. WENT OVER DISCHARGE WITH PATIENT AND . ANSWERED PATIENT QUESTIONS. PATIENT WAS WHEELED DOWN TO [facility] BY RAILROAD CAR LOADER NO SIGNS OR SYMPTOMS OF DISTRESS DURING DISCHARGE.
== END 2024-07-26 15:44 | disposition home health service (06) | DRG 637 ==
LOC: ER 10:42 → ICUE 12:33 → ERHOLD 12:33 → ICUE 14:35 → MEDS 07-24 17:19 → ENPENDDIS 07-26 13:45 → MEDS 07-26 15:44
PROVIDERS: Student in an Organized Health Care Education/Training Program; ADMIT Family Medicine
DX: E11.10 Type 2 diabetes mellitus with ketoacidosis without coma (principal); E43 Unspecified severe protein-calorie malnutrition; Z68.1 Body mass index [BMI] 19.9 or less, adult; I47.10 Supraventricular tachycardia, unspecified; I10 Essential (primary) hypertension; I25.10 Atherosclerotic heart disease of native coronary artery without angina pectoris; E86.0 Dehydration; G30.9 Alzheimer's disease, unspecified; F02.80 Dementia in other diseases classified elsewhere, unspecified severity, without behavioral disturbance, psychotic disturbance, mood disturbance, and anxiety; G89.29 Other chronic pain; M54.9 Dorsalgia, unspecified; K21.9 Gastro-esophageal reflux disease without esophagitis; I95.9 Hypotension, unspecified; F10.10 Alcohol abuse, uncomplicated; E78.5 Hyperlipidemia, unspecified; E11.51 Type 2 diabetes mellitus with diabetic peripheral angiopathy without gangrene; J44.9 Chronic obstructive pulmonary disease, unspecified; Z95.1 Presence of aortocoronary bypass graft; Z88.5 Allergy status to narcotic agent; Z79.02 Long term (current) use of antithrombotics/antiplatelets; Z79.4 Long term (current) use of insulin; Z79.84 Long term (current) use of oral hypoglycemic drugs; Z79.890 Hormone replacement therapy; Z95.5 Presence of coronary angioplasty implant and graft; Z95.820 Peripheral vascular angioplasty status with implants and grafts; I25.2 Old myocardial infarction; Z86.718 Personal history of other venous thrombosis and embolism; Z87.891 Personal history of nicotine dependence
CPT/HCPCS: 0241U; 36415; 51702; 71045; 80047; 80048; 80053; 80069; 82010; 82248; 82803; 82947; 83605; 83735; 84100; 84145; 84484; 85014; 85025; 87040; 93005; 93010; 94762; 96361-59; 96365-59; 96375-59; 97161; 99285-25; A9270; C1751; J0696; J1650; J1815; J3475; J3480; J7030; J7060; J7070